=== PATIENT | female | born 1980 | race Caucasian/White ===

== ENCOUNTER 2019-11-15 14:46 | Outpatient (CLI) | payer BC, SELFPAY ==
--- NOTE | 2019-11-15 | US_ITS ---
WS: [id number] TRANSABDOMINAL PELVIC AND TRANSVAGINAL PELVIC ULTRASOUND HISTORY: MENORRHAGIA. DYSMENORRHEA. COMPARISON: None available. Uterus: 9.1 cm x 5.8 cm x 4.4 cm. Normal size anteverted uterus. No fibroid or mass. Endometrium: 0.6 cm. Normal endometrium. Small nabothian cysts. Right ovary: 3.6 cm x 2.1 cm x 2.0 cm. Normal size and echogenicity. Normal vascularity. Left ovary: Not visualized. No adnexal mass. Trace free fluid in the cul-de-sac. US/US pelvic with transvaginal IMPRESSION: 1. Normal endometrium. 2. Nonvisualized LEFT ovary.
== END 2019-11-15 14:47 | disposition home or self-care (01) ==
LOC: RADWPI 14:48
PROVIDERS: Family Provider Family Medicine; PCP Family Medicine; Visit Provider Family Medicine
DX: N92.0 Excessive and frequent menstruation with regular cycle (principal); N94.6 Dysmenorrhea, unspecified
CPT/HCPCS: 76830; 76856

== ENCOUNTER 2020-01-20 10:26 | Emergency (ER) | payer BC, SELFPAY ==
[2020-01-20 10:35] VITALS: BP 202/120; PULSE 88; RESP 18; TEMP 36.9; O2SAT 96; BMI 50.1
--- NOTE | 2020-01-20 10:45 | ECG_ITS ---
Measurements Intervals [place] Rate: 72 P: 42 AR: 159 QRS: 44 QRSD: 91 T: 27 QT: 372 QTc: 408 SINUS RHYTHM No previous ECG available for comparison Electronically Signed On 01-21-2020 14:57:17 CDT by Danielle Chappell M.D. [email or web address]
--- NOTE | 2020-01-20 10:45 | XR_ITS ---
WS: [id number] PORTABLE CHEST HISTORY: cp COMPARISON: None available. Lungs are clear and well expanded. No pleural effusion or pneumothorax. Cardiac size: Normal. Mediastinum/Aorta: Normal mediastinum. No osseous abnormality seen. XR/XR chest 1V portable [id number] IMPRESSION: Unremarkable portable chest.
--- NOTE | 2020-01-20 10:47 | ED_ITS ---
HPI - Chest Pain General: Chief Complaint: Chest Pain Stated Complaint: THINKS SHE IS HAVING A STROKE Time Seen by Provider: 01/20/20 10:45 Source: patient Mode of arrival: ambulatory Limitations: no limitations History of Present Illness: HPI narrative: Patient comes in today with complaints of left-sided chest pain. Patient reports that the pains been going on for about 1 to 2 weeks. Patient reports that the pain goes down to her fingers and her left arm. Patient appears well. Patient appears in no acute distress. Patient does talk a lot about her job and the stress she has on her job. 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 Patient denies any previous cardiac history. Patient does take propranolol for hypertension. MD complaint: chest pain Review of Systems General: Reports: 10 or more systems reviewed and unremarkable except in HPI and below Card: Reports: chest pain [facility] PFSH: Medical History (Updated 01/20/20 @ 12:44 by UZMA Clark) Kidney stones Surgical History (Updated 11/24/19 @ 10:42 by Kim Fernandez LPN) Tubal ligation status (~2005) Family History (Updated 11/24/19 @ 10:44 by Kim Fernandez LPN) Mother Cancer Diabetes Grandmother Cancer Family/Other Diabetes Aunt Denies family history of CAD (coronary artery disease) Clotting disorder Dementia Hyperlipidemia Psychiatric illness Chronic kidney disease (CKD) Anesthesia complication Bleeding disorder Family history of premature coronary artery disease Lung disease Hypertension Social History (Updated 11/24/19 @ 11:18 by Kim Fernandez LPN) Smoking and tobacco status: current every day smoker cigarettes Packs smoked per day: 1 Physical Exam Const: COMMON NORMALS: no acute distress and patient oriented x3 GENERAL APPEARANCE: cooperative HENMT: COMMON NORMALS: normocephalic and Normal external nose present HEAD & SCALP: normal to inspection and normocephalic NOSE: Normal external nose present MOUTH: Normal oral and palatal mucosa present THROAT: posterior oropharynx normal Eye: GENERAL EYE: appearance normal, both eyes and all related structures Neck/C-Spine: COMMON NORMALS: full ROM Lymph: LYMPHATIC: no lymphadenopathy noted Chest: COMMONS NORMALS: normal inspection of the chest Resp: COMMON NORMALS: normal respiratory effort EFFORT & INSPECTION: Yes able to speak in complete sentences Cardio: COMMON NORMALS: regular rate and regular rhythm RATE: regular rate RHYTHM: regular rhythm GI: COMMON NORMALS: non-tender : COMMON NORMALS: Yes no CVA tenderness BLADDER/KIDNEY EXAM: Yes no CVA tenderness Back/Pelvis: COMMON NORMALS: no CVA tenderness and thoracic and lumbar spine n ormal to inspection Extremity: COMMON NORMALS: normal to inspection Neuro: COMMON NORMALS: patient oriented x3 and moves all extremities Psych: COMMON NORMALS: mental status grossly normal and cooperative Skin: COMMON NORMALS: no rashes or lesions noted GENERAL SKIN EXAM: no rashes or lesions noted Course Vital Signs: Vital signs: Vital Signs Temperature 98.4 F 01/20/20 10:35 Pulse Rate 84 01/20/20 12:27 Respiratory Rate 18 01/20/20 12:27 Blood Pressure 128/83 01/20/20 12:27 Pulse Oximetry 97 01/20/20 12:27 MDM - Chest Pain MDM Narrative: Medical decision making narrative: Patient comes in today for complaints of chest pain and left arm pain. Patient appears well. Patient does have elevated blood pressure. Heart rates regular. EKG is normal sinus rhythm. Vital signs are normal except for blood pressure of 202/120. Differential diagnosis includes ACS, anxiety, malignant hypertension, gallbladder disease. Laboratory values were normal. No elevation was noted in troponin. D-dimer was negative. Urine was positive for nitrates. Reviewed exam with patient with recommendations for treatment follow-up or need to return to the ER. Patient reported understanding. Lab Data: Labs: Lab Results 01/20/20 01/20/20 01/20/20 Range/Units 10:54 10:54 10:54 WBC 8.2 (4.0-10.0) 10^3/ uL RBC 4.86 (4.1-5.3) 10^6/u L Hgb 12.3 (11.5-15.3) g/dL Hct 39.7 (37.0-47.0) % MCV 81.7 (81-99) fL MCH 25.3 L (28.0-34.0) pg MCHC 31.0 (30.0-36.0) g/dL RDW 15.5 H (12.1-15.1) % Plt Count 381 (130-400) 10^3/c mm MPV 10.4 (7.4-10.4) fL Neut % (Auto) 61.9 % Lymph % (Auto) 26.9 % [place] % (Auto) 7.2 % Eos % (Auto) 2.9 % Baso % (Auto) 0.7 % Neut # (Auto) 5.1 (1.8-7.7) 10^3/u L Lymph # (Auto) 2.2 (0.8-4.8) 10^3/u L [place] # (Auto) 0.6 (0.2-0.9) 10^3/u L Eos # (Auto) 0.2 (0.0-0.8) 10^3/u L Baso # (Auto) 0.1 (0.0-0.1) 10^3/u L Nucleated RBC % (a uto) 0 % Nucleated RBCs # 0.0 /100WBC PT 12.90 (10.5-13.3) SECO NDS INR 0.95 (0.8-1.2) APTT 31.9 (23.9-36.7) SECO NDS D-Dimer 0.47 (0-0.59) ug/mIFE U Sodium 137 (136-145) mmol/L Potassium 4.7 (3.5-5.1) mmol/L Chloride 104 (98-107) mmol/L Carbon Dioxide 23 (22-29) mmol/L Anion Gap 14.7 (5-19) BUN 10 (6-20) mg/dL Creatinine 0.7 (0.5-0.9) mg/dL GFR Calculation 94.2 (90-130) mL/min Glucose 90 (65-115) mg/dL POC Glucose (70-110) mg/dL Calculated Osmolal ity 280 L (285-295) mOsm/k g Calcium 10.0 (8.5-10.5) mg/dL Total Bilirubin 0.2 (0.15-1.2) mg/dL AST 20 (0-32) U/L ALT 22 (0-33) U/L Alkaline Phosphata se 62 (35-105) IU/L Troponin T Baselin e (0-10) ng/L Total Protein 6.8 (6.6-8.7) g/dL Albumin 4.6 (3.5-5.2) g/dL Globulin 2.2 (1.3-4.6) g/dL Lipase 33 (13-60) U/L HCG, Qual (Negative) Urine Color (Yellow) Urine Appearance (CLEAR) Urine pH (5-7) Ur Specific Gravit y (1.005-1.030) Urine Protein (Negative) Urine Glucose (UA) (Normal) Urine Ketones (Negative) Urine Blood (Negative) Urine Nitrate (Negative) Urine Bilirubin (NEGATIVE) Urine Urobilinogen (Negative) mg/dL Ur Leukocyte Susi ase (Negative) Urine RBC (0-2) /hpf Urine WBC (0-5) /hpf Ur Squamous Epith Cells (0-5) Urine Bacteria (NONE) Urine Opiates Scre en (Negative) ng/mL Ur Barbiturates Sc reen (Negative) ng/mL Ur Phencyclidine S crn (Negative) ng/mL Ur Amphetamines Sc reen (Negative) ng/mL U Benzodiazepines Scrn (Negative) ng/mL Urine Cocaine Scre en (Negative) ng/mL U Marijuana (THC) Screen (Negative) ng/mL Ethyl Alcohol < 10 (0-10) mg/dL 01/20/20 01/20/20 01/20/20 Range/Units 10:54 11:03 11:15 WBC (4.0-10.0) 10^3/ uL RBC (4.1-5.3) 10^6/u L Hgb (11.5-15.3) g/dL Hct (37.0-47.0) % MCV (81-99) fL MCH (28.0-34.0) pg MCHC (30.0-36.0) g/dL RDW (12.1-15.1) % Plt Count (130-400) 10^3/c mm MPV (7.4-10.4) fL Neut % (Auto) % Lymph % (Auto) % [place] % (Auto) % Eos % (Auto) % Baso % (Auto) % Neut # (Auto) (1.8-7.7) 10^3/u L Lymph # (Auto) (0.8-4.8) 10^3/u L [place] # (Auto) (0.2-0.9) 10^3/u L Eos # (Auto) (0.0-0.8) 10^3/u L Baso # (Auto) (0.0-0.1) 10^3/u L Nucleated RBC % (a uto) % Nucleated RBCs # /100WBC PT (10.5-13.3) SECO NDS INR (0.8-1.2) APTT (23.9-36.7) SECO NDS D-Dimer (0-0.59) ug/mIFE U Sodium (136-145) mmol/L Potassium (3.5-5.1) mmol/L Chloride (98-107) mmol/L Carbon Dioxide (22-29) mmol/L Anion Gap (5-19) BUN (6-20) mg/dL Creatinine (0.5-0.9) mg/dL GFR Calculation (90-130) mL/min Glucose (65-115) mg/dL POC Glucose 92 (70-110) mg/dL Calculated Osmolal ity (285-295) mOsm/k g Calcium (8.5-10.5) mg/dL Total Bilirubin (0.15-1.2) mg/dL AST (0-32) U/L ALT (0-33) U/L Alkaline Phosphata se (35-105) IU/L Troponin T Baselin e 6 (0-10) ng/L Total Protein (6.6-8.7) g/dL Albumin (3.5-5.2) g/dL Globulin (1.3-4.6) g/dL Lipase (13-60) U/L HCG, Qual Negative (Negative) Urine Color (Yellow) Urine Appearance (CLEAR) Urine pH (5-7) Ur Specific Gravit y (1.005-1.030) Urine Protein (Negative) Urine Glucose (UA) (Normal) Urine Ketones (Negative) Urine Blood (Negative) Urine Nitrate (Negative) Urine Bilirubin (NEGATIVE) Urine Urobilinogen (Negative) mg/dL Ur Leukocyte Susi ase (Negative) Urine RBC (0-2) /hpf Urine WBC (0-5) /hpf Ur Squamous Epith Cells (0-5) Urine Bacteria (NONE) Urine Opiates Scre en (Negative) ng/mL Ur Barbiturates Sc reen (Negative) ng/mL Ur Phencyclidine S crn (Negative) ng/mL Ur Amphetamines Sc reen (Negative) ng/mL U Benzodiazepines Scrn (Negative) ng/mL Urine Cocaine Scre en (Negative) ng/mL U Marijuana (THC) Screen (Negative) ng/mL Ethyl Alcohol (0-10) mg/dL 01/20/20 01/20/20 Range/Units 11:15 11:15 WBC (4.0-10.0) 10^3/ uL RBC (4.1-5.3) 10^6/u L Hgb (11.5-15.3) g/dL Hct (37.0-47.0) % MCV (81-99) fL MCH (28.0-34.0) pg MCHC (30.0-36.0) g/dL RDW (12.1-15.1) % Plt Count (130-400) 10^3/c mm MPV (7.4-10.4) fL Neut % (Auto) % Lymph % (Auto) % [place] % (Auto) % Eos % (Auto) % Baso % (Auto) % Neut # (Auto) (1.8-7.7) 10^3/u L Lymph # (Auto) (0.8-4.8) 10^3/u L [place] # (Auto) (0.2-0.9) 10^3/u L Eos # (Auto) (0.0-0.8) 10^3/u L Baso # (Auto) (0.0-0.1) 10^3/u L Nucleated RBC % (a uto) % Nucleated RBCs # /100WBC PT (10.5-13.3) SECO NDS INR (0.8-1.2) APTT (23.9-36.7) SECO NDS D-Dimer (0-0.59) ug/mIFE U Sodium (136-145) mmol/L Potassium (3.5-5.1) mmol/L Chloride (98-107) mmol/L Carbon Dioxide (22-29) mmol/L Anion Gap (5-19) BUN (6-20) mg/dL Creatinine (0.5-0.9) mg/dL GFR Calculation (90-130) mL/min Glucose (65-115) mg/dL POC Glucose (70-110) mg/dL Calculated Osmolal ity (285-295) mOsm/k g Calcium (8.5-10.5) mg/dL Total Bilirubin (0.15-1.2) mg/dL AST (0-32) U/L ALT (0-33) U/L Alkaline Phosphata se (35-105) IU/L Troponin T Baselin e (0-10) ng/L Total Protein (6.6-8.7) g/dL Albumin (3.5-5.2) g/dL Globulin (1.3-4.6) g/dL Lipase (13-60) U/L HCG, Qual (Negative) Urine Color Yellow (Yellow) Urine Appearance Sl hazy (CLEAR) Urine pH 5.0 (5-7) Ur Specific Gravit y 1.015 (1.005-1.030) Urine Protein Neg (Negative) Urine Glucose (UA) Norm (Normal) Urine Ketones Negative (Negative) Urine Blood 2+ H (Negative) Urine Nitrate Positive H (Negative) Urine Bilirubin Neg (NEGATIVE) Urine Urobilinogen Norm (Negative) mg/dL Ur Leukocyte Susi ase Negative (Negative) Urine RBC 5-10 H (0-2) /hpf Urine WBC 15-25 H (0-5) /hpf Ur Squamous Epith Cells 0-4 H (0-5) Urine Bacteria 3+ H (NONE) Urine Opiates Scre en Negative (Negative) ng/mL Ur Barbiturates Sc reen Negative (Negative) ng/mL Ur Phencyclidine S crn Negative (Negative) ng/mL Ur Amphetamines Sc reen Negative (Negative) ng/mL U Benzodiazepines Scrn Negative (Negative) ng/mL Urine Cocaine Scre en Negative (Negative) ng/mL U Marijuana (THC) Screen Negative (Negative) ng/mL Ethyl Alcohol (0-10) mg/dL Discharge Plan Discharge Patient Disposition: Home, Self-Care Clinical Impression: Atypical chest pain Hypertension Qualifiers: Hypertension type: unspecified Qualified Code(s): I10 - Essential (primary) hypertension UTI (urinary tract infection) Qualifiers: Urinary tract infection type: acute cystitis Hematuria presence: without hematuria Qualified Code(s): N30.00 - Acute cystitis without hematuria Condition: Stable Prescriptions: New lisinopril 10 mg tablet 10 mg PO DAILY Qty: 14 RF: 0 Macrobid 100 mg capsule 100 mg PO BID 7 Days Qty: 14 RF: 0 No Action propranolol 80 mg tablet 40 mg PO BID RF: 0 aspirin [Fish Chewable Aspirin] 81 mg tablet,chewable 81 mg PO DAILY RF: 0 Chantix Starting Month Box 0.5 mg (11)- 1 mg (42) tablets,dose pack See Rx Instructions PO PER PKG DIR Qty: 53 RF: 0 Vitamin B-12 See Rx Instructions .ROUTE .COMPLEX RF: 0 Discharge Orders: Discharge Order (Routine); Ordered 01/20/20 Ordered By: Maurice Apple Referrals: Camila Menezes MD [Primary Care Provider] - Discharge Diet: Usual diet Discharge Activity: Increase activity as tolerated Activity Restrictions/Additional Instructions: Home and rest. Activity as tolerated. Drink plenty of water with medications. Follow-up with primary care in 1 week. Return to the ER for worsening symptoms or new concerns. Coding Level of Care Code ED Differential Tester for Mulu Fwlane Exam Comprehensive
[2020-01-20 10:57] VITALS: RESP 17
[2020-01-20 11:07] LABS: Glucose Point of Care 92 mg/dL (70-110)
[2020-01-20 11:07] LABS: Basophils # 0.1 10^3/uL (0.0-0.1); Basophils % 0.7 %; Eosinophils # 0.2 10^3/uL (0.0-0.8); Eosinophils % 2.9 %; Hematocrit 39.7 % (37.0-47.0); Hemoglobin 12.3 g/dL (11.5-15.3); Lymphocytes # 2.2 10^3/uL (0.8-4.8); Lymphocytes % 26.9 %; Mean Corpuscular Hemoglobin 25.3 pg (28.0-34.0); Mean Corpuscular Volume 81.7 fL (81-99); Mean Platelet Volume 10.4 fL (7.4-10.4); Monocytes # 0.6 10^3/uL (0.2-0.9); Monocytes % 7.2 %; Neutrophils # 5.1 10^3/uL (1.8-7.7); Neutrophils % 61.9 %; Nucleated Red Blood Cells % 0 %; Platelet Count 381 10^3/cmm (130-400); Red Blood Count 4.86 10^6/uL (4.1-5.3); Red Cell Distribution Width 15.5 % (12.1-15.1); White Blood Count 8.2 10^3/uL (4.0-10.0)
[2020-01-20 11:09] VITALS: BP 153/86
[2020-01-20] MEDS: cloNIDine 0.1 mg Tablet PO (11:09)
[2020-01-20 11:13] LABS: INR 0.95 (0.8-1.2); Partial Thromboplastin Time 31.9 SECONDS (23.9-36.7)
[2020-01-20 11:15] LABS: D Dimer 0.47 ug/mIFEU (0-0.59)
[2020-01-20 11:24] LABS: Alanine Aminotransferase 22 U/L (0-33); Albumin Level 4.6 g/dL (3.5-5.2); Alkaline Phosphatase 62 IU/L (35-105); Anion Gap 14.7 (5-19); Aspartate Amino Transferase 20 U/L (0-32); Blood Urea Nitrogen 10 mg/dL (6-20); Carbon Dioxide 23 mmol/L (22-29); Chloride 104 mmol/L (98-107); Globulin 2.2 g/dL (1.3-4.6); Glomerular Filtration Rate 94.2 mL/min (90-130); Glucose 90 mg/dL (65-115); Lipase 33 U/L (13-60); Osmolality Calculated 280 mOsm/kg (285-295); Potassium 4.7 mmol/L (3.5-5.1); Sodium 137 mmol/L (136-145); Total Bilirubin 0.2 mg/dL (0.15-1.2); Total Protein 6.8 g/dL (6.6-8.7)
[2020-01-20 11:25] LABS: Alcohol Level < 10 mg/dL (0-10)
[2020-01-20 11:26] LABS: Troponin(5th) Baseline 6 ng/L (0-10)
[2020-01-20 11:45] LABS: Urine Appearance SL Hazy (CLEAR); Urine Color Yellow (Yellow)
[2020-01-20 11:46] LABS: Add Urine Microscopic? YES; Bilirubin Urine Neg (NEGATIVE); Blood Urine 2+ (Negative); Glucose Urine UA Norm (Normal); Ketones Urine Negative (Negative); Leukocyte Esterase Urine Negative (Negative); Nitrate Urine Positive (Negative); Protein Urine Neg (Negative); Specific Gravity, Urine 1.015 (1.005-1.030); Urobilinogen Urine Norm (Negative)
[2020-01-20 11:47] LABS: HCG Qualitative Urine. Negative (Negative)
[2020-01-20 11:55] LABS: Amphetamines Screen Urine Negative (Negative); Barbiturates Screen Urine Negative (Negative); Benzodiazepines Screen Urine Negative (Negative); Cocaine Screen Urine Negative (Negative); Opiate Screen Urine Negative (Negative); PCP Screen Urine Negative (Negative); THC Screen Urine Negative (Negative)
[2020-01-20 12:06] LABS: Add Urine Culture? Yes; Bacteria Urine 3+; Squamous Epithelial Cell Urine 0-4 (0-5); WBC Urine 15-25 /hpf (0-5)
[2020-01-20 12:27] VITALS: BP 128/83; PULSE 84; RESP 18; O2SAT 97
[2020-01-20 13:10] VITALS: BP 128/83; PULSE 79; RESP 16; O2SAT 96
[2020-01-20 13:19] LABS: Troponin 5 2HR Delta 0 ABS# (0-10)
== END 2020-01-20 12:59 | disposition home or self-care (01) ==
PROVIDERS: Emergency Provider Nurse Practitioner Family; PCP Family Medicine
DX: R07.89 Other chest pain (principal); I10 Essential (primary) hypertension; N30.00 Acute cystitis without hematuria; Z79.82 Long term (current) use of aspirin; F17.210 Nicotine dependence, cigarettes, uncomplicated
CPT/HCPCS: 12345; 36415; 36416; 71045; 80053; 80306; 80307; 81001; 81025; 82962; 83690; 84484; 85025; 85378; 85610; 85730; 87077; 87086; 87186; 93005; 99283; 99284

== ENCOUNTER 2020-03-20 02:28 | Emergency (ER) | payer BC, SELFPAY ==
[2020-03-20 02:33] VITALS: BP 134/68; PULSE 142; RESP 18; TEMP 35.7; O2SAT 97; BMI 45.6
--- NOTE | 2020-03-20 02:59 | ED_ITS ---
Documented by User: SAL Bach 03/20/20 17:13 HPI - General Adult General: Chief complaint: Chest Pain Stated complaint: PAIN IN CHEST, NECK, HEAD Time Seen by Provider: 03/20/20 02:59 Source: patient Mode of arrival: ambulatory Limitations: no limitations History of Present Illness: HPI narrative: Patient is a 39-year-old female who presents to ED today with multiple medical complaints. Patient tells me around 8:30 PM she took her normal medications of lisinopril, Wellbutrin, Chantix but also took a naproxen due to cramping associated with her menstrual cycle and to Macrobid due to her having symptoms of urinary hesitancy and urgency. She states she has a history of UTIs and felt like her symptoms were similar. The Macrobid was left over. Patient tells me around 1:30am she woke up and felt freezing cold . She states she also felt dizzy, nauseous, felt like she could not breathe, and had some tightness in her chest. She also complained of a headache. Patient states she does have a history of anxiety. She was seen here in January and diagnosed with a panic attack Onset (ago): hour(s) Associated symptoms: Reports chest pain, dyspnea, headache(s) and nausea; Deny malaise, rash, palpitations, syncope or vomiting Review of Systems Const: Reports: fever(s) and chills; Denies: body aches, change in appetite, change in weight, fatigue, malaise or night sweats Eyes: Denies: change in vision, blurry vision, photophobia, floaters or seeing flashes ENMT: Denies: odynophagia Card: Reports: chest pain; Denies: palpitations, irregular heart rhythm, edema, swelling of feet/ankles, lightheadedness, syncope, pre-syncope, dyspnea on exertion, orthopnea or leg pain with exertion Resp: Reports: dyspnea; Denies: productive cough, non-productive cough, pain on inspiration, hemoptysis or chest congestion GI: Reports: nausea; Denies: abdominal pain, vomiting, heartburn or diarrhea : Reports: urinary urgency and urinary hesitancy; Denies: flank pain, difficulty voiding, dysuria, urinary frequency, urinary incontinence or vaginal discharge Musc: Denies: neck pain, back pain (chronic ) or joint pain Skin/Breast: Denies: rash Neuro: Reports: headache(s); Denies: numbness in extremities, weakness in extremities or sensory changes PFSH ED PFSH: Medical History Kidney stones Surgical History Tubal ligation status (~2005) Family History Mother Cancer Diabetes Grandmother Cancer Family/Other Diabetes Aunt Denies family history of CAD (coronary artery disease) Clotting disorder Dementia Hyperlipidemia Psychiatric illness Chronic kidney disease (CKD) Anesthesia complication Bleeding disorder Family history of premature coronary artery disease Lung disease Hypertension Social History Smoking and tobacco status: current every day smoker cigarettes Packs smoked per day: 1 Physical Exam Const: COMMON NORMALS: no acute distress, patient oriented x3, no limitations and alert NUTRITIONAL APPEARANCE: obese morbidly obese ORIENTATION/CONSCIOUSNESS: Yes oriented to person, Yes oriented to place and Yes oriented to time HENMT: COMMON NORMALS: normocephalic and atraumatic HEAD & SCALP: normocephalic and atraumatic Chest: COMMONS NORMALS: normal inspection of the chest and normal palpation of entire chest wall Resp: COMMON NORMALS: normal respiratory effort and clear to auscultation bilaterally AUSCULTATION: clear to auscultation bilaterally Cardio: COMMON NORMALS: regular rhythm RATE: tachycardic RHYTHM: regular rhythm GI: COMMON NORMALS: Normal to inspection, nondistended, normoactive bowel sounds present, Soft to palpation, non-tender, No hepatosplenomegaly present and no masses PALPATION: Yes Soft to palpation and Yes No hepatosplenomegaly present : COMMON NORMALS: Yes no CVA tenderness BLADDER/KIDNEY EXAM: Yes no CVA tenderness Back/Pelvis: COMMON NORMALS: no CVA tenderness Extremity: COMMON NORMALS: no clubbing, cyanosis or edema and no pedal edema Neuro: JOSE COMA SCALE: document GCS findings Jose coma scale eye opening: Spontaneous Jose coma scale verbal response: Orientated [place] coma scale motor response: Obey commands Jose coma scale total score: 15 COMMON NORMALS: patient oriented x3 and gait normal SENSORIUM/ORIENTATION: Yes alert, Yes oriented to person, Yes oriented to place and Yes oriented to time Skin: COMMON NORMALS: no rashes or lesions noted GENERAL SKIN EXAM: no rashes or lesions noted Course Vital Signs: Vital signs: Vital Signs Temperature 96.2 F L 03/20/20 02:33 Pulse Rate 98 03/20/20 06:50 Respiratory Rate 14 03/20/20 06:50 Blood Pressure 134/87 03/20/20 06:50 Pulse Oximetry 98 03/20/20 06:50 [facility] - General Adult Lab Data: Labs: Lab Results 03/20/20 03/20/20 03/20/20 Range/Units 03:11 03:11 03:11 WBC 7.6 (4.0-10.0) 10^3/ uL RBC 4.67 (4.1-5.3) 10^6/u L Hgb 12.0 (11.5-15.3) g/dL Hct 38.2 (37.0-47.0) % MCV 81.8 (81-99) fL MCH 25.7 L (28.0-34.0) pg MCHC 31.4 (30.0-36.0) g/dL RDW 16.2 H (12.1-15.1) % Plt Count 345 (130-400) 10^3/c mm MPV 10.0 (7.4-10.4) fL Neut % (Auto) 92.9 % Lymph % (Auto) 4.7 % [place] % (Auto) 0.7 % Eos % (Auto) 0.8 % Baso % (Auto) 0.4 % Neut # (Auto) 7.07 (1.8-7.7) 10^3/u L Lymph # (Auto) 0.4 L (0.8-4.8) 10^3/u L [place] # (Auto) 0.1 L (0.2-0.9) 10^3/u L Eos # (Auto) 0.1 (0.0-0.8) 10^3/u L Baso # (Auto) 0.0 (0.0-0.1) 10^3/u L Nucleated RBC % (a uto) 0 % Nucleated RBCs # 0.0 /100WBC D-Dimer (0-0.59) ug/mIFE U Sodium 137 (136-145) mmol/L Potassium 4.0 (3.5-5.1) mmol/L Chloride 104 (98-107) mmol/L Carbon Dioxide 23 (22-29) mmol/L Anion Gap 14.0 (5-19) BUN 12 (6-20) mg/dL Creatinine 1.0 H (0.5-0.9) mg/dL GFR Calculation 62.4 L (90-130) mL/min Glucose 109 (65-115) mg/dL Calculated Osmolal ity 281 L (285-295) mOsm/k g Calcium 9.7 (8.5-10.5) mg/dL Total Bilirubin 0.6 (0.15-1.2) mg/dL AST 86 H (0-32) U/L ALT 52 H (0-33) U/L Alkaline Phosphata se 97 (35-105) IU/L Troponin T Baselin e 6 (0-10) ng/L Troponin T 120 Min [place] (0-10) ng/L Delta Troponin T (0-10) ABS# Total Protein 6.3 L (6.6-8.7) g/dL Albumin 4.0 (3.5-5.2) g/dL Globulin 2.3 (1.3-4.6) g/dL HCG, Qual (Negative) Urine Opiates Scre en (Negative) ng/mL Ur Barbiturates Sc reen (Negative) ng/mL Ur Phencyclidine S crn (Negative) ng/mL Ur Amphetamines Sc reen (Negative) ng/mL U Benzodiazepines Scrn (Negative) ng/mL Urine Cocaine Scre en (Negative) ng/mL U Marijuana (THC) Screen (Negative) ng/mL 03/20/20 03/20/20 03/20/20 Range/Units 03:11 03:11 03:15 WBC (4.0-10.0) 10^3/ uL RBC (4.1-5.3) 10^6/u L Hgb (11.5-15.3) g/dL Hct (37.0-47.0) % MCV (81-99) fL MCH (28.0-34.0) pg MCHC (30.0-36.0) g/dL RDW (12.1-15.1) % Plt Count (130-400) 10^3/c mm MPV (7.4-10.4) fL Neut % (Auto) % Lymph % (Auto) % [place] % (Auto) % Eos % (Auto) % Baso % (Auto) % Neut # (Auto) (1.8-7.7) 10^3/u L Lymph # (Auto) (0.8-4.8) 10^3/u L [place] # (Auto) (0.2-0.9) 10^3/u L Eos # (Auto) (0.0-0.8) 10^3/u L Baso # (Auto) (0.0-0.1) 10^3/u L Nucleated RBC % (a uto) % Nucleated RBCs # /100WBC D-Dimer 0.91 H (0-0.59) ug/mIFE U Sodium (136-145) mmol/L Potassium (3.5-5.1) mmol/L Chloride (98-107) mmol/L Carbon Dioxide (22-29) mmol/L Anion Gap (5-19) BUN (6-20) mg/dL Creatinine (0.5-0.9) mg/dL GFR Calculation (90-130) mL/min Glucose (65-115) mg/dL Calculated Osmolal ity (285-295) mOsm/k g Calcium (8.5-10.5) mg/dL Total Bilirubin (0.15-1.2) mg/dL AST (0-32) U/L ALT (0-33) U/L Alkaline Phosphata se (35-105) IU/L Troponin T Baselin e (0-10) ng/L Troponin T 120 Min [place] (0-10) ng/L Delta Troponin T (0-10) ABS# Total Protein (6.6-8.7) g/dL Albumin (3.5-5.2) g/dL Globulin (1.3-4.6) g/dL HCG, Qual Negative (Negative) Urine Opiates Scre en Negative (Negative) ng/mL Ur Barbiturates Sc reen Negative (Negative) ng/mL Ur Phencyclidine S crn Negative (Negative) ng/mL Ur Amphetamines Sc reen Negative (Negative) ng/mL U Benzodiazepines Scrn Negative (Negative) ng/mL Urine Cocaine Scre en Negative (Negative) ng/mL U Marijuana (THC) Screen Negative (Negative) ng/mL 03/20/20 Range/Units 05:10 WBC (4.0-10.0) 10^3/ uL RBC (4.1-5.3) 10^6/u L Hgb (11.5-15.3) g/dL Hct (37.0-47.0) % MCV (81-99) fL MCH (28.0-34.0) pg MCHC (30.0-36.0) g/dL RDW (12.1-15.1) % Plt Count (130-400) 10^3/c mm MPV (7.4-10.4) fL Neut % (Auto) % Lymph % (Auto) % [place] % (Auto) % Eos % (Auto) % Baso % (Auto) % Neut # (Auto) (1.8-7.7) 10^3/u L Lymph # (Auto) (0.8-4.8) 10^3/u L [place] # (Auto) (0.2-0.9) 10^3/u L Eos # (Auto) (0.0-0.8) 10^3/u L Baso # (Auto) (0.0-0.1) 10^3/u L Nucleated RBC % (a uto) % Nucleated RBCs # /100WBC D-Dimer (0-0.59) ug/mIFE U Sodium (136-145) mmol/L Potassium (3.5-5.1) mmol/L Chloride (98-107) mmol/L Carbon Dioxide (22-29) mmol/L Anion Gap (5-19) BUN (6-20) mg/dL Creatinine (0.5-0.9) mg/dL GFR Calculation (90-130) mL/min Glucose (65-115) mg/dL Calculated Osmolal ity (285-295) mOsm/k g Calcium (8.5-10.5) mg/dL Total Bilirubin (0.15-1.2) mg/dL AST (0-32) U/L ALT (0-33) U/L Alkaline Phosphata se (35-105) IU/L Troponin T Baselin e (0-10) ng/L Troponin T 120 Min [place] 6.00 (0-10) ng/L Delta Troponin T 0 (0-10) ABS# Total Protein (6.6-8.7) g/dL Albumin (3.5-5.2) g/dL Globulin (1.3-4.6) g/dL HCG, Qual (Negative) Urine Opiates Scre en (Negative) ng/mL Ur Barbiturates Sc reen (Negative) ng/mL Ur Phencyclidine S crn (Negative) ng/mL Ur Amphetamines Sc reen (Negative) ng/mL U Benzodiazepines Scrn (Negative) ng/mL Urine Cocaine Scre en (Negative) ng/mL U Marijuana (THC) Screen (Negative) ng/mL EKG Data^: EKG 1: Computer generated interpretation: Chest X-Ray 03/20/20 03:00 IMPRESSION: No acute findings. Chest CTA 03/20/20 04:44 IMPRESSION: No acute findings. Specifically negative for pulmonary embolism. Negative for aortic aneurysm or dissection Radiation Dose CTDIVOL = (mGy): DLP = 1260.55 (mGy-cm) EKG 2: Computer generated interpretation: Chest X-Ray 03/20/20 03:00 IMPRESSION: No acute findings. Chest CTA 03/20/20 04:44 IMPRESSION: No acute findings. Specifically negative for pulmonary embolism. Negative for aortic aneurysm or dissection Radiation Dose CTDIVOL = (mGy): DLP = 1260.55 (mGy-cm) Discharge Plan Discharge Patient Disposition: Home Clinical Impression: Chest pain Qualifiers: Chest pain type: unspecified Qualified Code(s): R07.9 - Chest pain, unspecified Condition: Stable Prescriptions: New hydroxyzine pamoate 25 mg capsule 25 mg PO Q6H PRN (Reason: anxiety) Qty: 30 RF: 0 No Action propranolol 80 mg tablet 40 mg PO BID RF: 0 aspirin [Fish Chewable Aspirin] 81 mg tablet,chewable 81 mg PO DAILY RF: 0 Chantix Starting Month Box 0.5 mg (11)- 1 mg (42) tablets,dose pack See Rx Instructions PO PER PKG DIR Qty: 53 RF: 0 Vitamin B-12 See Rx Instructions .ROUTE .COMPLEX RF: 0 lisinopril 10 mg tablet 10 mg PO DAILY Qty: 14 RF: 0 Discharge Orders: Discharge Order (Routine); Ordered 03/20/20 Ordered By: Sharon Campbell Referrals: Camila Menezes MD [Primary Care Provider] - 1-3 days [facility] [place], [Staff Physician] - 1-3 days (Call [facility] and [place] for appointment to be seen as soon as possible.) Discharge Diet: Advance as tolerated Discharge Activity: Increase activity as tolerated Patient Instructions: Chest Pain (ED), Anxiety (ED) Activity Restrictions/Additional Instructions: Please return to the ER immediately for any of the signs or symptoms listed on your discharge instruction sheets, worsening/changing of your symptoms, you are not getting better as quickly as expected, or for ANY other cause or concerns. You have been offered further evaluation and care here to include further observation and investigation of your heart. You have even been offered admission but have declined. Of course any heart problem can be life-threatening so if your symptoms change or worsen please return here immediately for recheck and further evaluation and care. Discharge Date/Time: 03/20/20 06:57 Sign Out Sign Out Data: Patient Sign Out occurred on 03/20/20 at 03:17. Patient's care was discussed, and care was transferred from to Sharon Campbell. Coding Level of Care Code ED County Assessor for Chg Fwd Exam Comprehensive Documented by User: Sharon Campbell 03/20/20 06:03 HPI - General Adult General: Chief complaint: Chest Pain Stated complaint: PAIN IN CHEST, NECK, HEAD Time Seen by Provider: 03/20/20 02:59 PFSH ED PFSH: Medical History Kidney stones Surgical History Tubal ligation status (~2005) Family History Mother Cancer Diabetes Grandmother Cancer Family/Other Diabetes Aunt Denies family history of CAD (coronary artery disease) Clotting disorder Dementia Hyperlipidemia Psychiatric illness Chronic kidney disease (CKD) Anesthesia complication Bleeding disorder Family history of premature coronary artery disease Lung disease Hypertension Social History Smoking and tobacco status: current every day smoker cigarettes Packs smoked per day: 1 Course Vital Signs: Vital signs: Vital Signs Temperature 96.2 F L 03/20/20 02:33 Pulse Rate 98 03/20/20 06:50 Respiratory Rate 14 03/20/20 06:50 Blood Pressure 134/87 03/20/20 06:50 Pulse Oximetry 98 03/20/20 06:50 MDM - General Adult MDM Narrative: Medical decision making narrative: Awa is a very nice 39-year-old female who comes in complaining of multiple complaints. Specifically she is concerned about chest pain but she states this to her feels like a panic attack. Her EKGs have been normal here and her troponins have been normal x2. Her heart score is 1. Her d-dimer was positive but a CTA of her chest is negative. Patient is very emotional, tearful at times. I have offered her further evaluation and care including even to consult with the hospitalist about possible admission but she declines. She states that this is just a panic attack but she needs to help get better control of this. She has not seen her doctor about this nor has she been to [facility]. I have suggested both avenues and she agrees to do this. She agrees to return should her symptoms change or worsen or if anything new develops. She understands that she is leaving against my advice she is still tachycardic and I would like to further evaluate her symptoms but she does agree to return should her symptoms change or worsen. Lab Data: Attestation: I reviewed the patient's lab results. Labs: Lab Results 03/20/20 03/20/20 03/20/20 Range/Units 03:11 03:11 03:11 WBC 7.6 (4.0-10.0) 10^3/ uL RBC 4.67 (4.1-5.3) 10^6/u L Hgb 12.0 (11.5-15.3) g/dL Hct 38.2 (37.0-47.0) % MCV 81.8 (81-99) fL MCH 25.7 L (28.0-34.0) pg MCHC 31.4 (30.0-36.0) g/dL RDW 16.2 H (12.1-15.1) % Plt Count 345 (130-400) 10^3/c mm MPV 10.0 (7.4-10.4) fL Neut % (Auto) 92.9 % Lymph % (Auto) 4.7 % [place] % (Auto) 0.7 % Eos % (Auto) 0.8 % Baso % (Auto) 0.4 % Neut # (Auto) 7.07 (1.8-7.7) 10^3/u L Lymph # (Auto) 0.4 L (0.8-4.8) 10^3/u L [place] # (Auto) 0.1 L (0.2-0.9) 10^3/u L Eos # (Auto) 0.1 (0.0-0.8) 10^3/u L Baso # (Auto) 0.0 (0.0-0.1) 10^3/u L Nucleated RBC % (a uto) 0 % Nucleated RBCs # 0.0 /100WBC D-Dimer (0-0.59) ug/mIFE U Sodium 137 (136-145) mmol/L Potassium 4.0 (3.5-5.1) mmol/L Chloride 104 (98-107) mmol/L Carbon Dioxide 23 (22-29) mmol/L Anion Gap 14.0 (5-19) BUN 12 (6-20) mg/dL Creatinine 1.0 H (0.5-0.9) mg/dL GFR Calculation 62.4 L (90-130) mL/min Glucose 109 (65-115) mg/dL Calculated Osmolal ity 281 L (285-295) mOsm/k g Calcium 9.7 (8.5-10.5) mg/dL Total Bilirubin 0.6 (0.15-1.2) mg/dL AST 86 H (0-32) U/L ALT 52 H (0-33) U/L Alkaline Phosphata se 97 (35-105) IU/L Troponin T Baselin e 6 (0-10) ng/L Troponin T 120 Min [place] (0-10) ng/L Delta Troponin T (0-10) ABS# Total Protein 6.3 L (6.6-8.7) g/dL Albumin 4.0 (3.5-5.2) g/dL Globulin 2.3 (1.3-4.6) g/dL HCG, Qual (Negative) Urine Opiates Scre en (Negative) ng/mL Ur Barbiturates Sc reen (Negative) ng/mL Ur Phencyclidine S crn (Negative) ng/mL Ur Amphetamines Sc reen (Negative) ng/mL U Benzodiazepines Scrn (Negative) ng/mL Urine Cocaine Scre en (Negative) ng/mL U Marijuana (THC) Screen (Negative) ng/mL 03/20/20 03/20/20 03/20/20 Range/Units 03:11 03:11 03:15 WBC (4.0-10.0) 10^3/ uL RBC (4.1-5.3) 10^6/u L Hgb (11.5-15.3) g/dL Hct (37.0-47.0) % MCV (81-99) fL MCH (28.0-34.0) pg MCHC (30.0-36.0) g/dL RDW (12.1-15.1) % Plt Count (130-400) 10^3/c mm MPV (7.4-10.4) fL Neut % (Auto) % Lymph % (Auto) % [place] % (Auto) % Eos % (Auto) % Baso % (Auto) % Neut # (Auto) (1.8-7.7) 10^3/u L Lymph # (Auto) (0.8-4.8) 10^3/u L [place] # (Auto) (0.2-0.9) 10^3/u L Eos # (Auto) (0.0-0.8) 10^3/u L Baso # (Auto) (0.0-0.1) 10^3/u L Nucleated RBC % (a uto) % Nucleated RBCs # /100WBC D-Dimer 0.91 H (0-0.59) ug/mIFE U Sodium (136-145) mmol/L Potassium (3.5-5.1) mmol/L Chloride (98-107) mmol/L Carbon Dioxide (22-29) mmol/L Anion Gap (5-19) BUN (6-20) mg/dL Creatinine (0.5-0.9) mg/dL GFR Calculation (90-130) mL/min Glucose (65-115) mg/dL Calculated Osmolal ity (285-295) mOsm/k g Calcium (8.5-10.5) mg/dL Total Bilirubin (0.15-1.2) mg/dL AST (0-32) U/L ALT (0-33) U/L Alkaline Phosphata se (35-105) IU/L Troponin T Baselin e (0-10) ng/L Troponin T 120 Min [place] (0-10) ng/L Delta Troponin T (0-10) ABS# Total Protein (6.6-8.7) g/dL Albumin (3.5-5.2) g/dL Globulin (1.3-4.6) g/dL HCG, Qual Negative (Negative) Urine Opiates Scre en Negative (Negative) ng/mL Ur Barbiturates Sc reen Negative (Negative) ng/mL Ur Phencyclidine S crn Negative (Negative) ng/mL Ur Amphetamines Sc reen Negative (Negative) ng/mL U Benzodiazepines Scrn Negative (Negative) ng/mL Urine Cocaine Scre en Negative (Negative) ng/mL U Marijuana (THC) Screen Negative (Negative) ng/mL 03/20/20 Range/Units 05:10 WBC (4.0-10.0) 10^3/ uL RBC (4.1-5.3) 10^6/u L Hgb (11.5-15.3) g/dL Hct (37.0-47.0) % MCV (81-99) fL MCH (28.0-34.0) pg MCHC (30.0-36.0) g/dL RDW (12.1-15.1) % Plt Count (130-400) 10^3/c mm MPV (7.4-10.4) fL Neut % (Auto) % Lymph % (Auto) % [place] % (Auto) % Eos % (Auto) % Baso % (Auto) % Neut # (Auto) (1.8-7.7) 10^3/u L Lymph # (Auto) (0.8-4.8) 10^3/u L [place] # (Auto) (0.2-0.9) 10^3/u L Eos # (Auto) (0.0-0.8) 10^3/u L Baso # (Auto) (0.0-0.1) 10^3/u L Nucleated RBC % (a uto) % Nucleated RBCs # /100WBC D-Dimer (0-0.59) ug/mIFE U Sodium (136-145) mmol/L Potassium (3.5-5.1) mmol/L Chloride (98-107) mmol/L Carbon Dioxide (22-29) mmol/L Anion Gap (5-19) BUN (6-20) mg/dL Creatinine (0.5-0.9) mg/dL GFR Calculation (90-130) mL/min Glucose (65-115) mg/dL Calculated Osmolal ity (285-295) mOsm/k g Calcium (8.5-10.5) mg/dL Total Bilirubin (0.15-1.2) mg/dL AST (0-32) U/L ALT (0-33) U/L Alkaline Phosphata se (35-105) IU/L Troponin T Baselin e (0-10) ng/L Troponin T 120 Min [place] 6.00 (0-10) ng/L Delta Troponin T 0 (0-10) ABS# Total Protein (6.6-8.7) g/dL Albumin (3.5-5.2) g/dL Globulin (1.3-4.6) g/dL HCG, Qual (Negative) Urine Opiates Scre en (Negative) ng/mL Ur Barbiturates Sc reen (Negative) ng/mL Ur Phencyclidine S crn (Negative) ng/mL Ur Amphetamines Sc reen (Negative) ng/mL U Benzodiazepines Scrn (Negative) ng/mL Urine Cocaine Scre en (Negative) ng/mL U Marijuana (THC) Screen (Negative) ng/mL Imaging Data^: CT Chest: Radiologist's impression: [address] [address] [address] Scan Report Signed Patient: Franco Morrell #: [id number] : 1980Acct#:[id number] Age/Sex: 39 / FADM Date: 03/20/20 Loc: ERRoom/Bed: Attending Dr: Ordering Provider/Ordering MD: Sharno Campbell DO Date of Service: 03/20/20 Procedure(s): CT angio chest PE protcl [id number] Accession Number(s): [id number] Report Number: [id number] PROCEDURE INFORMATION: Exam: CT Angiography Chest With Contrast Exam date and time: 03/20/2020 5:14 AM Age: 39 years old Clinical indication: Abnormal findings; Abnormal diagnostic tests; Elevated d-dimer; Dyspnea; Additional info: Tachycardia, chest pain, positive d-dimer TECHNIQUE: Imaging protocol: Computed tomographic angiography of the chest with intravenous contrast. 3D rendering: MIP and/or 3D reconstructed images were created by the technologist. Radiation optimization: All CT scans at this facility use at least one of these dose optimization techniques: automated exposure control; mA and/or kV adjustment per patient size (includes targeted exams where dose is matched to clinical indication); or iterative reconstruction. Contrast material: OMNI 350; Contrast volume: 95 ml; Contrast route: INTRAVENOUS (IV); COMPARISON: CR XR chest 1V portable [id number] 03/20/2020 3:04 AM RADIATION DOSE METRICS: Total DLP (mGy-cm): 1260.55 FINDINGS: Pulmonary arteries: Normal. No pulmonary emboli. Aorta: Unremarkable. No aortic aneurysm. No aortic dissection. Lungs: Unremarkable. No consolidation. No masses. Pleural space: Unremarkable. No pneumothorax. No pleural effusion. Heart: Unremarkable. No cardiomegaly. No pericardial effusion. Lymph nodes: Unremarkable. No enlarged lymph nodes. Bones/joints: Degenerative changes are present. No acute fracture. Soft tissues: Unremarkable. CT/CT angio chest PE protcl [id number] IMPRESSION: No acute findings. Specifically negative for pulmonary embolism. Negative for aortic aneurysm or dissection Radiation Dose CTDIVOL = (mGy): DLP = 1260.55 (mGy-cm) Dictated By:Phu Berg Signed By:Desi Bergigned Date/Time:03/20/20541 DD/ 9 EKG Data^: EKG 1: Attestation: I personally reviewed and interpreted this EKG as follows: EKG interpretation date: 03/20/20 EKG interpretation time: 02:54 Interpretation: Normal sinus rhythm at 127 beats a minute, no acute ST-T wave changes. No blocks, normal intervals. Computer generated interpretation: Chest X-Ray 08/11/20 03:00 IMPRESSION: No acute findings. Chest CTA 03/20/20 04:44 IMPRESSION: No acute findings. Specifically negative for pulmonary embolism. Negative for aortic aneurysm or dissection Radiation Dose CTDIVOL = (mGy): DLP = 1260.55 (mGy-cm) EKG 2: Attestation: I personally reviewed and interpreted this EKG as follows: EKG interpretation date: 03/20/20 EKG interpretation time: 05:56 Interpretation: Normal sinus rhythm 105 beats a minute, no acute ST or T wave changes. Computer generated interpretation: Chest X-Ray 03/20/20 03:00 IMPRESSION: No acute findings. Chest CTA 03/20/20 04:44 IMPRESSION: No acute findings. Specifically negative for pulmonary embolism. Negative for aortic aneurysm or dissection Radiation Dose CTDIVOL = (mGy): DLP = 1260.55 (mGy-cm) Discharge Plan Discharge Patient Disposition: Home Clinical Impression: Chest pain Qualifiers: Chest pain type: unspecified Qualified Code(s): R07.9 - Chest pain, unspecified Condition: Stable Prescriptions: New hydroxyzine pamoate 25 mg capsule 25 mg PO Q6H PRN (Reason: anxiety) Qty: 30 RF: 0 No Action propranolol 80 mg tablet 40 mg PO BID RF: 0 aspirin [Fish Chewable Aspirin] 81 mg tablet,chewable 81 mg PO DAILY RF: 0 Chantix Starting Month Box 0.5 mg (11)- 1 mg (42) tablets,dose pack See Rx Instructions PO PER PKG DIR Qty: 53 RF: 0 Vitamin B-12 See Rx Instructions .ROUTE .COMPLEX RF: 0 lisinopril 10 mg tablet 10 mg PO DAILY Qty: 14 RF: 0 Discharge Orders: Discharge Order (Routine); Ordered 03/20/20 Ordered By: Sharon Campbell Referrals: Camila Menezes MD [Primary Care Provider] - 1-3 days [facility], [Staff Physician] - 1-3 days (Call [facility] and [place] for appointment to be seen as soon as possible.) Discharge Diet: Advance as tolerated Discharge Activity: Increase activity as tolerated Patient Instructions: Chest Pain (ED), Anxiety (ED) Activity Restrictions/Additional Instructions: Please return to the ER immediately for any of the signs or symptoms listed on your discharge instruction sheets, worsening/changing of your symptoms, you are not getting better as quickly as expected, or for ANY other cause or concerns. You have been offered further evaluation and care here to include further observation and investigation of your heart. You have even been offered admission but have declined. Of course any heart problem can be life-threatening so if your symptoms change or worsen please return here immediately for recheck and further evaluation and care. Discharge Date/Time: 03/20/20 06:57 Sign Out Sign Out Data: Patient Sign Out occurred on 03/20/20 at 03:17. Patient's care was discussed, and care was transferred from to Sharon Campbell. Coding Level of Care Code ED [facility] Fwd Exam Comprehensive Documented by User: Edgardo Trent DO 03/20/20 07:57 HPI - General Adult General: Chief complaint: Chest Pain Stated complaint: PAIN IN CHEST, NECK, HEAD Time Seen by Provider: 03/20/20 02:59 PFSH ED PFSH: Medical History Kidney stones Surgical History Tubal ligation status (~2005) Family History Mother Cancer Diabetes Grandmother Cancer Family/Other Diabetes Aunt Denies family history of CAD (coronary artery disease) Clotting disorder Dementia Hyperlipidemia Psychiatric illness Chronic kidney disease (CKD) Anesthesia complication Bleeding disorder Family history of premature coronary artery disease Lung disease Hypertension Social History Smoking and tobacco status: current every day smoker cigarettes Packs smoked per day: 1 Course Vital Signs: Vital signs: Vital Signs Temperature 96.2 F L 03/20/20 02:33 Pulse Rate 98 03/20/20 06:50 Respiratory Rate 14 03/20/20 06:50 Blood Pressure 134/87 08/11/20 06:50 Pulse Oximetry 98 03/20/20 06:50 MDM - General Adult MDM Narrative: Medical decision making narrative: Chart reviewed, I did not see the pt as Iwas no longer on shift when pt was seen by Claudine Coley. Lab Data: Labs: Lab Results 03/20/20 03/20/20 03/20/20 Range/Units 03:11 03:11 03:11 WBC 7.6 (4.0-10.0) 10^3/ uL RBC 4.67 (4.1-5.3) 10^6/u L Hgb 12.0 (11.5-15.3) g/dL Hct 38.2 (37.0-47.0) % MCV 81.8 (81-99) fL MCH 25.7 L (28.0-34.0) pg MCHC 31.4 (30.0-36.0) g/dL RDW 16.2 H (12.1-15.1) % Plt Count 345 (130-400) 10^3/c mm MPV 10.0 (7.4-10.4) fL Neut % (Auto) 92.9 % Lymph % (Auto) 4.7 % [place] % (Auto) 0.7 % Eos % (Auto) 0.8 % Baso % (Auto) 0.4 % Neut # (Auto) 7.07 (1.8-7.7) 10^3/u L Lymph # (Auto) 0.4 L (0.8-4.8) 10^3/u L [place] # (Auto) 0.1 L (0.2-0.9) 10^3/u L Eos # (Auto) 0.1 (0.0-0.8) 10^3/u L Baso # (Auto) 0.0 (0.0-0.1) 10^3/u L Nucleated RBC % (a uto) 0 % Nucleated RBCs # 0.0 /100WBC D-Dimer (0-0.59) ug/mIFE U Sodium 137 (136-145) mmol/L Potassium 4.0 (3.5-5.1) mmol/L Chloride 104 (98-107) mmol/L Carbon Dioxide 23 (22-29) mmol/L Anion Gap 14.0 (5-19) BUN 12 (6-20) mg/dL Creatinine 1.0 H (0.5-0.9) mg/dL GFR Calculation 62.4 L (90-130) mL/min Glucose 109 (65-115) mg/dL Calculated Osmolal ity 281 L (285-295) mOsm/k g Calcium 9.7 (8.5-10.5) mg/dL Total Bilirubin 0.6 (0.15-1.2) mg/dL AST 86 H (0-32) U/L ALT 52 H (0-33) U/L Alkaline Phosphata se 97 (35-105) IU/L Troponin T Baselin e 6 (0-10) ng/L Troponin T 120 Min [place] (0-10) ng/L Delta Troponin T (0-10) ABS# Total Protein 6.3 L (6.6-8.7) g/dL Albumin 4.0 (3.5-5.2) g/dL Globulin 2.3 (1.3-4.6) g/dL HCG, Qual (Negative) Urine Opiates Scre en (Negative) ng/mL Ur Barbiturates Sc reen (Negative) ng/mL Ur Phencyclidine S crn (Negative) ng/mL Ur Amphetamines Sc reen (Negative) ng/mL U Benzodiazepines Scrn (Negative) ng/mL Urine Cocaine Scre en (Negative) ng/mL U Marijuana (THC) Screen (Negative) ng/mL 03/20/20 03/20/20 03/20/20 Range/Units 03:11 03:11 03:15 WBC (4.0-10.0) 10^3/ uL RBC (4.1-5.3) 10^6/u L Hgb (11.5-15.3) g/dL Hct (37.0-47.0) % MCV (81-99) fL MCH (28.0-34.0) pg MCHC (30.0-36.0) g/dL RDW (12.1-15.1) % Plt Count (130-400) 10^3/c mm MPV (7.4-10.4) fL Neut % (Auto) % Lymph % (Auto) % [place] % (Auto) % Eos % (Auto) % Baso % (Auto) % Neut # (Auto) (1.8-7.7) 10^3/u L Lymph # (Auto) (0.8-4.8) 10^3/u L [place] # (Auto) (0.2-0.9) 10^3/u L Eos # (Auto) (0.0-0.8) 10^3/u L Baso # (Auto) (0.0-0.1) 10^3/u L Nucleated RBC % (a uto) % Nucleated RBCs # /100WBC D-Dimer 0.91 H (0-0.59) ug/mIFE U Sodium (136-145) mmol/L Potassium (3.5-5.1) mmol/L Chloride (98-107) mmol/L Carbon Dioxide (22-29) mmol/L Anion Gap (5-19) BUN (6-20) mg/dL Creatinine (0.5-0.9) mg/dL GFR Calculation (90-130) mL/min Glucose (65-115) mg/dL Calculated Osmolal ity (285-295) mOsm/k g Calcium (8.5-10.5) mg/dL Total Bilirubin (0.15-1.2) mg/dL AST (0-32) U/L ALT (0-33) U/L Alkaline Phosphata se (35-105) IU/L Troponin T Baselin e (0-10) ng/L Troponin T 120 Min [place] (0-10) ng/L Delta Troponin T (0-10) ABS# Total Protein (6.6-8.7) g/dL Albumin (3.5-5.2) g/dL Globulin (1.3-4.6) g/dL HCG, Qual Negative (Negative) Urine Opiates Scre en Negative (Negative) ng/mL Ur Barbiturates Sc reen Negative (Negative) ng/mL Ur Phencyclidine S crn Negative (Negative) ng/mL Ur Amphetamines Sc reen Negative (Negative) ng/mL U Benzodiazepines Scrn Negative (Negative) ng/mL Urine Cocaine Scre en Negative (Negative) ng/mL U Marijuana (THC) Screen Negative (Negative) ng/mL 03/20/20 Range/Units 05:10 WBC (4.0-10.0) 10^3/ uL RBC (4.1-5.3) 10^6/u L Hgb (11.5-15.3) g/dL Hct (37.0-47.0) % MCV (81-99) fL MCH (28.0-34.0) pg MCHC (30.0-36.0) g/dL RDW (12.1-15.1) % Plt Count (130-400) 10^3/c mm MPV (7.4-10.4) fL Neut % (Auto) % Lymph % (Auto) % [place] % (Auto) % Eos % (Auto) % Baso % (Auto) % Neut # (Auto) (1.8-7.7) 10^3/u L Lymph # (Auto) (0.8-4.8) 10^3/u L [place] # (Auto) (0.2-0.9) 10^3/u L Eos # (Auto) (0.0-0.8) 10^3/u L Baso # (Auto) (0.0-0.1) 10^3/u L Nucleated RBC % (a uto) % Nucleated RBCs # /100WBC D-Dimer (0-0.59) ug/mIFE U Sodium (136-145) mmol/L Potassium (3.5-5.1) mmol/L Chloride (98-107) mmol/L Carbon Dioxide (22-29) mmol/L Anion Gap (5-19) BUN (6-20) mg/dL Creatinine (0.5-0.9) mg/dL GFR Calculation (90-130) mL/min Glucose (65-115) mg/dL Calculated Osmolal ity (285-295) mOsm/k g Calcium (8.5-10.5) mg/dL Total Bilirubin (0.15-1.2) mg/dL AST (0-32) U/L ALT (0-33) U/L Alkaline Phosphata se (35-105) IU/L Troponin T Baselin e (0-10) ng/L Troponin T 120 Min [place] 6.00 (0-10) ng/L Delta Troponin T 0 (0-10) ABS# Total Protein (6.6-8.7) g/dL Albumin (3.5-5.2) g/dL Globulin (1.3-4.6) g/dL HCG, Qual (Negative) Urine Opiates Scre en (Negative) ng/mL Ur Barbiturates Sc reen (Negative) ng/mL Ur Phencyclidine S crn (Negative) ng/mL Ur Amphetamines Sc reen (Negative) ng/mL U Benzodiazepines Scrn (Negative) ng/mL Urine Cocaine Scre en (Negative) ng/mL U Marijuana (THC) Screen (Negative) ng/mL EKG Data^: EKG 1: Computer generated interpretation: Chest X-Ray 03/20/20 03:00 IMPRESSION: No acute findings. Chest CTA 03/20/20 04:44 IMPRESSION: No acute findings. Specifically negative for pulmonary embolism. Negative for aortic aneurysm or dissection Radiation Dose CTDIVOL = (mGy): DLP = 1260.55 (mGy-cm) EKG 2: Computer generated interpretation: Chest X-Ray 03/20/20 03:00 IMPRESSION: No acute findings. Chest CTA 03/20/20 04:44 IMPRESSION: No acute findings. Specifically negative for pulmonary embolism. Negative for aortic aneurysm or dissection Radiation Dose CTDIVOL = (mGy): DLP = 1260.55 (mGy-cm) Discharge Plan Discharge Patient Disposition: Home Clinical Impression: Chest pain Qualifiers: Chest pain type: unspecified Qualified Code(s): R07.9 - Chest pain, unspecified Condition: Stable Prescriptions: New hydroxyzine pamoate 25 mg capsule 25 mg PO Q6H PRN (Reason: anxiety) Qty: 30 RF: 0 No Action propranolol 80 mg tablet 40 mg PO BID RF: 0 aspirin [Fish Chewable Aspirin] 81 mg tablet,chewable 81 mg PO DAILY RF: 0 Chantix Starting Month Box 0.5 mg (11)- 1 mg (42) tablets,dose pack See Rx Instructions PO PER PKG DIR Qty: 53 RF: 0 Vitamin B-12 See Rx Instructions .ROUTE .COMPLEX RF: 0 lisinopril 10 mg tablet 10 mg PO DAILY Qty: 14 RF: 0 Discharge Orders: Discharge Order (Routine); Ordered 03/20/20 Ordered By: Sharon Campbell Referrals: Camila Menezes MD [Primary Care Provider] - 1-3 days [facility], [Staff Physician] - 1-3 days (Call [facility] and [place] for appointment to be seen as soon as possible.) Discharge Diet: Advance as tolerated Discharge Activity: Increase activity as tolerated Patient Instructions: Chest Pain (ED), Anxiety (ED) Activity Restrictions/Additional Instructions: Please return to the ER immediately for any of the signs or symptoms listed on your discharge instruction sheets, worsening/changing of your symptoms, you are not getting better as quickly as expected, or for ANY other cause or concerns. You have been offered further evaluation and care here to include further observation and investigation of your heart. You have even been offered admission but have declined. Of course any heart problem can be life-threatening so if your symptoms change or worsen please return here immediately for recheck and further evaluation and care. Discharge Date/Time: 03/20/20 06:57 Sign Out Sign Out Data: Patient Sign Out occurred on 03/20/20 at 03:17. Patient's care was discussed, and care was transferred from to Sharon Campbell. Coding Level of Care Code ED County Assessor for [place] Fwd Exam Comprehensive
--- NOTE | 2020-03-20 03:00 | ECG_ITS ---
[facility] Test Date: 2020-03-20 Pat Name: wAa Morrell Department: Room: Gender: Female [employer] Developer: : 1980 Requested By: Claudine Coley Order Number: [id number] Zohaib MD: Danielle Chappell M.D. Measurements Intervals [place] Rate: 127 P: 56 ME: 148 QRS: 59 QRSD: 86 T: 43 QT: 325 QTc: 474 Interpretive Statements SINUS TACHYCARDIA ABNORMAL RHYTHM ECG Compared to ECG 01/20/2020 10:55:01 Sinus rhythm no longer present Electronically Signed On 03-21-2020 0:26:09 CDT by Danielle Chappell M.D. [email or web address] Businessour lady of [email or web address]/store/[id number] f
--- NOTE | 2020-03-20 03:00 | XRR_ITS ---
PROCEDURE INFORMATION: Exam: XR Chest, 1 View Exam date and time: 03/20/2020 3:15 AM Age: 39 years old Clinical indication: Pain; Chest pressure; Additional info: Chest pain TECHNIQUE: Imaging protocol: XR of the chest Views: 1 view. COMPARISON: CR XR chest 1V portable [id number] 01/20/2020 10:53 AM FINDINGS: Lungs: Unremarkable. No consolidation. Pleural space: Unremarkable. No pleural effusion. No pneumothorax. Heart/Mediastinum: Unremarkable. No cardiomegaly. Bones/joints: Unremarkable. XR/XR chest 1V portable [id number] IMPRESSION: No acute findings.
[2020-03-20 03:19] LABS: Basophils % 0.4 %; Eosinophils # 0.1 10^3/uL (0.0-0.8); Eosinophils % 0.8 %; Hematocrit 38.2 % (37.0-47.0); Lymphocytes # 0.4 10^3/uL (0.8-4.8); Lymphocytes % 4.7 %; Mean Corpuscular HGB Conc 31.4 g/dL (30.0-36.0); Mean Corpuscular Hemoglobin 25.7 pg (28.0-34.0); Mean Corpuscular Volume 81.8 fL (81-99); Monocytes # 0.1 10^3/uL (0.2-0.9); Monocytes % 0.7 %; Neutrophils # 7.07 10^3/uL (1.8-7.7); Neutrophils % 92.9 %; Nucleated Red Blood Cells % 0 %; Platelet Count 345 10^3/cmm (130-400); Red Blood Count 4.67 10^6/uL (4.1-5.3); Red Cell Distribution Width 16.2 % (12.1-15.1); White Blood Count 7.6 10^3/uL (4.0-10.0)
[2020-03-20] MEDS: sodium chloride 0.9% 1,000 ML 999 ML IV ×2 (03:21→05:56)
[2020-03-20 03:29] VITALS: BP 130/74; PULSE 114; RESP 18; O2SAT 97
[2020-03-20 03:38] LABS: Alanine Aminotransferase 52 U/L (0-33); Alkaline Phosphatase 97 IU/L (35-105); Aspartate Amino Transferase 86 U/L (0-32); Blood Urea Nitrogen 12 mg/dL (6-20); Calcium 9.7 mg/dL (8.5-10.5); Carbon Dioxide 23 mmol/L (22-29); Chloride 104 mmol/L (98-107); Creatinine Clr Calc Pharmacy 112.8072; Globulin 2.3 g/dL (1.3-4.6); Glomerular Filtration Rate 62.4 mL/min (90-130); Glucose 109 mg/dL (65-115); HCG, Serum Qual Negative (Negative); Osmolality Calculated 281 mOsm/kg (285-295); Sodium 137 mmol/L (136-145); Total Bilirubin 0.6 mg/dL (0.15-1.2); Total Protein 6.3 g/dL (6.6-8.7)
[2020-03-20 03:43] LABS: Troponin(5th) Baseline 6 ng/L (0-10)
[2020-03-20 03:59] LABS: Amphetamines Screen Urine Negative (Negative); Barbiturates Screen Urine Negative (Negative); Benzodiazepines Screen Urine Negative (Negative); Cocaine Screen Urine Negative (Negative); Opiate Screen Urine Negative (Negative); PCP Screen Urine Negative (Negative); THC Screen Urine Negative (Negative)
[2020-03-20 04:38] LABS: D Dimer 0.91 ug/mIFEU (0-0.59)
--- NOTE | 2020-03-20 04:44 | CTR_ITS ---
PROCEDURE INFORMATION: Exam: CT Angiography Chest With Contrast Exam date and time: 03/20/2020 5:14 AM Age: 39 years old Clinical indication: Abnormal findings; Abnormal diagnostic tests; Elevated d-dimer; Dyspnea; Additional info: Tachycardia, chest pain, positive d-dimer TECHNIQUE: Imaging protocol: Computed tomographic angiography of the chest with intravenous contrast. 3D rendering: MIP and/or 3D reconstructed images were created by the technologist. Radiation optimization: All CT scans at this facility use at least one of these dose optimization techniques: automated exposure control; mA and/or kV adjustment per patient size (includes targeted exams where dose is matched to clinical indication); or iterative reconstruction. Contrast material: OMNI 350; Contrast volume: 95 ml; Contrast route: INTRAVENOUS (IV); COMPARISON: CR XR chest 1V portable [id number] 03/20/2020 3:04 AM RADIATION DOSE METRICS: Total DLP (mGy-cm): 1260.55 FINDINGS: Pulmonary arteries: Normal. No pulmonary emboli. Aorta: Unremarkable. No aortic aneurysm. No aortic dissection. Lungs: Unremarkable. No consolidation. No masses. Pleural space: Unremarkable. No pneumothorax. No pleural effusion. Heart: Unremarkable. No cardiomegaly. No pericardial effusion. Lymph nodes: Unremarkable. No enlarged lymph nodes. Bones/joints: Degenerative changes are present. No acute fracture. Soft tissues: Unremarkable. CT/CT angio chest PE protcl [id number] IMPRESSION: No acute findings. Specifically negative for pulmonary embolism. Negative for aortic aneurysm or dissection Radiation Dose CTDIVOL = (mGy): DLP = 1260.55 (mGy-cm)
[2020-03-20 05:13] VITALS: BP 132/87; PULSE 98; RESP 16; O2SAT 98
[2020-03-20] MEDS: iohexol 300 mg/mL 100 mL Btl IV (05:24)
[2020-03-20 05:35] LABS: Troponin 5 2HR Delta 0 ABS# (0-10)
[2020-03-20 06:02] VITALS: PULSE 108; RESP 17; O2SAT 98
[2020-03-20 06:50] VITALS: BP 134/87; PULSE 98; RESP 14; O2SAT 98
== END 2020-03-20 06:57 | disposition home or self-care (01) ==
PROVIDERS: Physician Assistant; Emergency Provider Emergency Medicine; PCP Family Medicine
DX: R07.9 Chest pain, unspecified (principal); Z79.82 Long term (current) use of aspirin; F17.210 Nicotine dependence, cigarettes, uncomplicated
CPT/HCPCS: 12345; 36415; 71045; 71275; 80053; 80306; 84484; 84703; 85025; 85378; 93005; 96360; 96361; 99283; 99284; J3490; J7030; Q9967

== ENCOUNTER 2020-04-13 10:00 | Outpatient (CLI) | payer BC, SELFPAY ==
--- NOTE | 2020-04-13 10:02 | US_ITS ---
WS: [id number] RIGHT UPPER QUADRANT ULTRASOUND HISTORY: ATYPICAL CHEST PAIN/MORBID OBESITY/HEART BURN COMPARISON: None available. Liver: 18.5 cm in length. Moderate hepatomegaly marked attenuation from hepatic steatosis. Entire trae er is not well visualized. No mass or bile duct dilatation. Gallbladder: Normally distended gallbladder with no stones or wall thickening. CBD: 0.2 cm Pancreas: Normal size and echogenicity. Right kidney: 11.4 cm in length. Poor visualization. No abnormality. Aorta and IVC: Unremarkable abdominal aorta and IVC. No ascites. US/US gall bladder [id number] IMPRESSION: 1. Technically difficult examination due to body habitus. 2. Moderate hepatomegaly with hepatic steatosis. 3. Negative gallbladder.
== END 2020-04-13 10:01 | disposition home or self-care (01) ==
LOC: US 10:01
PROVIDERS: PCP Family Medicine; Visit Provider Nurse Practitioner Family
DX: R07.89 Other chest pain (principal); E66.01 Morbid (severe) obesity due to excess calories; R12 Heartburn; R16.0 Hepatomegaly, not elsewhere classified; K76.0 Fatty (change of) liver, not elsewhere classified
CPT/HCPCS: 76705

== ENCOUNTER 2020-06-27 20:00 | Outpatient (CLI) | payer BC, SELFPAY | END 2020-06-27 20:01 | disposition home or self-care (01) | LOC: SLEEP 06-28 10:22 | PROVIDERS: PCP Family Medicine; Visit Provider Surgery | DX: G47.33 Obstructive sleep apnea (adult) (pediatric) (principal) | CPT/HCPCS: 95810 ==

== ENCOUNTER → 2020-09-11 15:22 | Outpatient (BNVA) | payer BC, SELFPAY | PROVIDERS: PCP Nurse Practitioner Family; Visit Provider Internal Medicine | DX: E55.9 Vitamin D deficiency, unspecified (principal); E66.01 Morbid (severe) obesity due to excess calories; Z68.42 Body mass index [BMI] 45.0-49.9, adult; E83.52 Hypercalcemia; F41.9 Anxiety disorder, unspecified; N20.0 Calculus of kidney; R52 Pain, unspecified; R63.5 Abnormal weight gain; Z13.1 Encounter for screening for diabetes mellitus; Z72.89 Other problems related to lifestyle | CPT/HCPCS: 99205 ==

== ENCOUNTER 2020-09-16 09:08 | Outpatient (CLI) | payer BC, SELFPAY ==
[2020-09-16 13:45] LABS: Parathyroid Hormone 45.9 pg/mL (15-65)
[2020-09-16 14:08] LABS: Urine Creatinine 94 mg/dL (28-217)
[2020-09-16 15:03] LABS: Total Volume Urine 2050 ml
[2020-09-16 16:30] LABS: Free T4 Free Thyroxine 1.18 ng/dL (0.82-1.77); Thyroid Stimulating Hormone 0.43 uIU/mL (0.27-4.20)
[2020-09-19 16:48] LABS: Total Urine 2050 mL; Urine Creatinine 1.97 g/24 h (0.50-2.15)
== END 2020-09-16 09:09 | disposition home or self-care (01) ==
PROVIDERS: PCP Nurse Practitioner Family; Visit Provider Internal Medicine
DX: E83.52 Hypercalcemia (principal); R63.5 Abnormal weight gain
CPT/HCPCS: 82310; 82530; 82570; 83970; 84439; 84443

== ENCOUNTER → 2020-09-17 10:36 | Outpatient (BNVA) | payer BC, SELFPAY | PROVIDERS: PCP Nurse Practitioner Family; Visit Provider Obstetrics & Gynecology | DX: N94.6 Dysmenorrhea, unspecified (principal); E66.9 Obesity, unspecified; N92.0 Excessive and frequent menstruation with regular cycle; Z13.1 Encounter for screening for diabetes mellitus | CPT/HCPCS: 83001; 83036; 84146 ==

== ENCOUNTER → 2020-11-01 11:59 | Outpatient (BNVA) | payer BC, SELFPAY | PROVIDERS: PCP Nurse Practitioner Family; Visit Provider Obstetrics & Gynecology | DX: Z20.828 Contact with and (suspected) exposure to other viral communicable diseases (principal) | CPT/HCPCS: 87635 ==

== ENCOUNTER 2020-11-07 07:22 | Day surgery (SDC) | payer BC, SELFPAY ==
[2020-11-05 10:16] VITALS: BMI 46.0
--- NOTE | 2020-11-05 10:45 | P.ANESASSM_ITS ---
Pre-Anesthetic Assessment Pre-Anesthetic Assessment: Height/Weight: Height 1.69 m Weight 131.542 kg Preop Diagnosis: chronic pelvic pain, dysmenorrhea, menorrhagia Proposed Procedure: Operation Date: 11/07/20 14:10 Proposed Procedures p Laparoscopy Diagnostic 96268 N94.6 N10.2 N92.0(Not Applicable) - Salty macias MD Familial anesthetic complications: Woke up during lithotripsy and tried to leave Social: Comment: Fatmata, former smoker (quit in august) Exam: Pre-Anes Outpt Exam: alert, oriented x 3, clear to auscultation bilaterally and regular rate & rhythm Airway: Cervical ROM: WNL MP: 4 Dentition: Other (missing) CV/HEM: CV/HEM: HTN Metabolic: Metabolic: Morbid obesity Anesthetic Plan: ASA status: 2 Anesthesia: MAC Risk of > 500 ml blood loss (7ml/kg in children): No PFSH Anesthesia PFSH: Medical History Kidney stones Moderate obstructive sleep apnea Surgical History Tubal ligation status (~2005) Family History Mother Cancer Diabetes Grandmother Cancer Family/Other Diabetes Aunt Denies family history of CAD (coronary artery disease) Clotting disorder Dementia Hyperlipidemia Psychiatric illness Chronic kidney disease (CKD) Anesthesia complication Bleeding disorder Family history of premature coronary artery disease Lung disease Hypertension Social History (Updated 11/05/20 @ 08:18 by Robyn Hardin RN) Smoking and tobacco status: current every day smoker e-cigarettes E-Cigarette D etails: vaporizer device and with nicotine E-cig/vape details: uses daily, equivalent to 1 pack per day Alcohol intake: current Alcohol intake frequency: holidays/special occasions only Alcohol type: hard liquor Substance/Drug Use: current Substance/Drug use frequency: few times a week Substance/Drug use type: Marijuana Other substance/drug use details: marijuana, has a medical card, she states that she has not used in 1 week Female Reproductive History: Date of last menstrual period: 10/29/20 Data Anesthesia Cardiac Studies: No Data to Display
[2020-11-05 10:55] LABS: Add Urine Microscopic? NO
[2020-11-05 10:59] LABS: Basophils # 0.1 10^3/uL (0.0-0.1); Basophils % 0.8 %; Eosinophils # 0.2 10^3/uL (0.0-0.8); Eosinophils % 2.7 %; Hematocrit 38.4 % (37.0-47.0); Hemoglobin 12.2 g/dL (11.5-15.3); Lymphocytes # 1.9 10^3/uL (0.8-4.8); Lymphocytes % 24.7 %; Mean Corpuscular HGB Conc 31.8 g/dL (30.0-36.0); Mean Corpuscular Hemoglobin 26.4 pg (28.0-34.0); Mean Corpuscular Volume 83.1 fL (81-99); Monocytes # 0.5 10^3/uL (0.2-0.9); Monocytes % 5.7 %; Neutrophils # 5.17 10^3/uL (1.8-7.7); Neutrophils % 65.8 %; Nucleated Red Blood Cells % 0 %; Platelet Count 387 10^3/cmm (130-400); Red Blood Count 4.62 10^6/uL (4.1-5.3); Red Cell Distribution Width 15.8 % (12.1-15.1); White Blood Count 7.9 10^3/uL (4.0-10.0)
[2020-11-05 11:06] LABS: Urine Appearance Clear (CLEAR); Urine Color Yellow (Yellow); pH Urine 6 (5-7)
[2020-11-05 11:07] LABS: Bilirubin Urine Neg (Negative); Blood Urine Neg (Negative); Glucose Urine UA Norm (Normal); Ketones Urine Negative (Negative); Leukocyte Esterase Urine Negative (Negative); Nitrate Urine Negative (Negative); OR HCG Qualitative Urine Negative (Negative); Protein Urine Neg (Negative); Urobilinogen Urine 1 mg/dL (Negative)
[2020-11-05 11:26] LABS: Alanine Aminotransferase 17 U/L (0-33); Albumin Level 4.4 g/dL (3.5-5.2); Alkaline Phosphatase 76 IU/L (35-105); Anion Gap 12.8 (5-19); Aspartate Amino Transferase 17 U/L (0-32); Blood Urea Nitrogen 12 mg/dL (6-20); Calcium 9.5 mg/dL (8.5-10.5); Carbon Dioxide 28 mmol/L (22-29); Chloride 101 mmol/L (98-107); Globulin 2.8 g/dL (1.3-4.6); Glomerular Filtration Rate 94.2 mL/min (90-130); Glucose 96 mg/dL (65-115); Osmolality Calculated 286 mOsm/kg (285-295); Potassium 3.8 mmol/L (3.5-5.1); Sodium 138 mmol/L (136-145); Total Bilirubin 0.3 mg/dL (0.15-1.2); Total Protein 7.2 g/dL (6.6-8.7)
[2020-11-07] VITALS (8 sets, daily range): BP systolic 130–151; BP diastolic 62–97; PULSE 63–99; RESP 15–21; TEMP 36.3–36.6; O2SAT 94–97
[2020-11-07] MEDS: sodium chloride 0.9% 500 ML IV (08:35)
[2020-11-07] MEDS: scopolamine 1.5 Patch 1 PATCH TRANSDERMA (08:35)
--- NOTE | 2020-11-07 10:35 | W.PM.OPSUD ---
Surgery/Procedure H&P Update DATE OF PROCEDURE: November 07, 2020 DATE H&P PERFORMED: 11/05/20 H&P UPDATE INFORMATION: I have reviewed H&P completed within last 30 days, I have examined patient prior to procedure and No changes to prior documentation PREOP DIAGNOSIS: chronic pelvic pain, dysmenorrhea, menorrhagia PLANNED PROCEDURE: Operation Date: 11/07/20 09:20 Proposed Procedures p Laparoscopy Diagnostic 08481 N94.6 N10.2 N92.0(Not Applicable) - Salty Husain MD
[2020-11-07] MEDS: sodium chloride 0.9% 1,000 ML 30 ML IV (10:40)
[2020-11-07] MEDS: ceFOXitin 2,000 MG in sodium chloride 0.9% (plus) 50 ML 100 MG IV (10:48)
--- NOTE | 2020-11-07 11:33 | P.OP_ITS ---
Operative Report Date of procedure: November 07, 2020 Pre-op Diagnosis: chronic pelvic pain, dysmenorrhea, menorrhagia Post-op diagnosis: same Post-op Findings: Normal pelvic organs. Procedure Done: Diagnostic laparoscopy Pathology: none sent Surgeon: Salty Husain MD Anesthesia: General Estimated blood loss (mL): 5 Complications: none Condition: stable Disposition: PACU Brief History: 39-year-old female with chronic pelvic pain, dysmenorrhea, menorrhagia unresponsive to medical management Procedure: DESCRIPTION OF PROCEDURE: After informed consent, the patient was taken to the operating room where general anesthesia was administered. The patient was examined under anesthesia and found to have a normal uterus with normal adnexa. She was placed in the dorsal lithotomy position and prepped and draped in sterile fashion. Pre- Procedure Time-Out verifying the correct patient identity, correct procedure verified with consent, correct site and side, correct patient position, availability of correct implants and any special equipment or requirements was performed and acknowledge by the OR team. A weighted speculum was placed in the vagina, and the anterior lip of cervix was grasped with the single toothed tenaculum. Tenaculum was placed on anterior lip of cervix, uterine sound measured 10 cm. A uterine manipulator was advanced into the endocervical canal into endometrial cavity. Tenaculum was removed after uterine manipulator was secured. The speculum was removed from the vagina. An intraumbilical incision was made with a scalpel. While tenting up on the abdomen, a Verres needle with sleeve was admitted into the intra-abdominal cavity. A saline drop test was performed and noted to be within normal limits. Pneumoperitoneum was attained with 4 liters of carbon dioxide. The Verres needle was removed. A 5 mm trocar and sleeve were admitted into the abdomen and laparoscopic confirmation of location was achieved, A second incision was made 3 cm above the symphysis pubis, and a 5 mm trocar and sleeve were admitted into the abdomen under direct, laparoscopic visualization without complication. A survey revealed normal abdominal anatomy but omental adhesion to umbical area. The pelvic survey shows normal uterus, left and right adnexa post tubal ligation. A 5 mm blunt probe was advanced through the second trocar sleeve, and light manipulation of ovaries and uterus to assess the posterior aspects was performed. Carbon dioxide was allowed to escape from the abdomen. The instruments were removed, and skin cover with a bandage. The instruments were removed from the vagina, and excellent hemostasis was noted. The patient tolerated the procedure well, and sponge, lap and needle count were correct times two. The patient taken to the recovery room in good condition.
[2020-11-07] MEDS: fentaNYL 50 mcg/mL INJ 2mL IVP ×2 (11:49→11:54)
--- NOTE | 2020-11-07 12:02 | P.PCN_ITS ---
PACU note PACU note: VSS, Good respiratory effort, report to CLAM SHUCKING MACHINE TENDER Post-Anesthesia Exam: awake
--- NOTE | 2020-11-07 12:02 | PM.PACU ---
PACU note PACU note: VSS, Good respiratory effort, report to MOLD INJECTOR Post-Anesthesia Exam: awake
--- NOTE | 2020-11-07 18:05 | ANE.PACU2 ---
Inpatient post-anesthesia follow up: Airway intact: Yes Vital signs: Temperature 97.3 F Pulse Rate 68 Respiratory Rate 18 Blood Pressure 130/82 Pulse Oximetry 96 Oxygen Delivery Me thod Room Air Oxygen Flow Rate 8 Fraction of Inspir ed Oxygen Hydration adequate: Yes Nausea and vomiting: No Pain level: 3 Mental status: Baseline
== END 2020-11-07 12:45 | disposition home or self-care (01) ==
PROVIDERS: PCP Nurse Practitioner Family; Visit Provider Obstetrics & Gynecology
PROC: (CPT 49320; principal; 2020-11-07 09:10)
DX: R10.2 Pelvic and perineal pain (principal); G89.29 Other chronic pain; N94.6 Dysmenorrhea, unspecified; N92.0 Excessive and frequent menstruation with regular cycle; I10 Essential (primary) hypertension; E66.01 Morbid (severe) obesity due to excess calories; Z68.42 Body mass index [BMI] 45.0-49.9, adult; Z83.3 Family history of diabetes mellitus; F17.290 Nicotine dependence, other tobacco product, uncomplicated; G47.33 Obstructive sleep apnea (adult) (pediatric)
CPT/HCPCS: 49320; 36415; 80053; 81003; 81025; 84703; 85025; 86850; 86900; 96365; J0694; J1100; J1885; J2250; J2405; J2704; J2710; J3010; J3490; J7030; J7040

== ENCOUNTER → 2021-02-28 11:14 | Outpatient (BNVA) | payer BC, SELFPAY | PROVIDERS: PCP Nurse Practitioner Family; Visit Provider Surgery | DX: Z20.822 Contact with and (suspected) exposure to COVID-19 (principal) | CPT/HCPCS: 87635 ==

== ENCOUNTER 2021-03-05 05:55 | Day surgery (SDC) | payer BC, SELFPAY ==
[2021-03-01 12:16] VITALS: BMI 44.8
[2021-03-05 06:24] VITALS: BP 125/60; PULSE 66; RESP 18; TEMP 36.1; O2SAT 99
[2021-03-05] MEDS: sodium chloride 0.9% 1,000 ML 30 ML IV (06:29)
[2021-03-05 06:31] LABS: OR HCG Qualitative Urine Negative (Negative)
--- NOTE | 2021-03-05 06:36 | W.PM.OPSUD ---
Surgery/Procedure H&P Update DATE OF PROCEDURE: March 05, 2021 DATE H&P PERFORMED: 02/25/21 H&P UPDATE INFORMATION: I have reviewed H&P completed within last 30 days, I have examined patient prior to procedure and No changes to prior documentation PREOP DIAGNOSIS: GERD associated with morbid obesity PRIMARY INDICATION FOR PROCEDURE: The same PLANNED PROCEDURE: Operation Date: 03/05/21 07:00 Proposed Procedures p EGD 79254 K21.9(Not Applicable) - Derrek Sosa MD
--- NOTE | 2021-03-05 06:48 | ANES.PREANE2 ---
Pre-Anesthetic Assessment Pre-Anesthetic Assessment: Height/Weight: Height 1.73 m Weight 133.81 kg Temp Pulse Resp BP Pulse Ox 97.0 F L 66 18 125/60 99 03/05/21 06:24 03/05/21 06:24 03/05/21 06:24 03/05/21 06:24 03/05/21 06:24 Preop Diagnosis: GERD associated with morbid obesity Proposed Procedure: Operation Date: 03/05/21 07:00 Proposed Procedures p EGD 16586 K21.9(Not Applicable) - Derrek Sosa MD Familial anesthetic complications: panic right before going to sleep last time i was here Was Beta Christin taken within 24 hours: N/A Was Clonidine taken within 24 hours: N/A Last intake: Intake Last Liquid Date 03/04/21 Last Solid Date 03/04/21 Social: Social History: Tobacco and No alcohol Comment: vape and smoke Exam: Pre-Anes Outpt Exam: alert, oriented x 3, clear to auscultation bilaterally and regular rate & rhythm Airway: Submandibular: WNL Cervical ROM: WNL MP: 1 Dentition: Full Pulmonary: Pulmonary: Sleep apnea CV/HEM: CV/HEM: HTN : Comments: kidney stones with stents GI: GI: None reported Metabolic: Metabolic: Hyperlipidemia and Morbid obesity Musc/skel: Musc/skel: Lower Back Pain Neuropsych: Neuropsych: Anxiety and BAEZ (random) Anesthetic Plan: ASA status: 3 Anesthesia: MAC Risk of > 500 ml blood loss (7ml/kg in children): No Meds/Allergies Current Medications: Current Medications Generic Name Dose Route Start Last Admin Trade Name Freq PRN Reason Stop Dose Admin Sodium Chloride 1,000 mls @ 30 ml s/hr 03/05/21 06:15 03/05/21 06:29 Sodium Chloride 0.9% IV 30 mls/hr .Q24H KASEY Administration PFSH Anesthesia PFSH: Medical History Aftercare following surgery of the genitourinary system Kidney stones Moderate obstructive sleep apnea Surgical History H/O laparoscopy 11/07/2020- diagnostic laparoscopy performed by Dr. Husain at [facility] Tubal ligation status (~2006) Family History Mother Cancer Diabetes Grandmother Cancer Family/Other Diabetes Aunt Denies family history of CAD (coronary artery disease) Clotting disorder Dementia Hyperlipidemia Psychiatric illness Chronic kidney disease (CKD) Anesthesia complication Bleeding disorder Family history of premature coronary artery disease Lung disease Hypertension Social History Smoking and tobacco status: never smoked Alcohol intake: current Alcohol intake frequency: holidays/special occasions only Alcohol type: hard liquor Female Reproductive History: Date of last menstrual period: 10/29/20 Data Anesthesia Other Labs: Laboratory Results - last 48 hr 03/05/21 06:31 Urine HCG, Qual Negative Cardiac Studies: No Data to Display
[2021-03-05 07:10] VITALS: BP 111/66; PULSE 67; RESP 18; TEMP 36.2; O2SAT 98
--- NOTE | 2021-03-05 07:14 | ANE.PACU2 ---
Inpatient post-anesthesia follow up: Airway intact: Yes Vital signs: Temperature 97.2 F Pulse Rate 67 Respiratory Rate 18 Blood Pressure 111/66 Pulse Oximetry 98 Oxygen Delivery Me thod Room Air Oxygen Flow Rate Fraction of Inspir ed Oxygen Hydration adequate: Yes Nausea and vomiting: No Pain level: 1 Mental status: Baseline
[2021-03-05 07:25] VITALS: BP 108/90; PULSE 81; RESP 18; O2SAT 98
--- NOTE | 2021-03-05 15:35 | ANE.PACU2 ---
Inpatient post-anesthesia follow up: Airway intact: Yes Vital signs: Temperature 97.2 F Pulse Rate 81 Respiratory Rate 18 Blood Pressure 108/90 Pulse Oximetry 98 Oxygen Delivery Me thod Room Air Oxygen Flow Rate Fraction of Inspir ed Oxygen Hydration adequate: Yes Nausea and vomiting: No Pain level: 1 Mental status: Baseline
[2021-03-06 05:53] LABS: H. Pylori / CLO Test Negative
== END 2021-03-05 08:04 | disposition home or self-care (01) ==
PROVIDERS: Anesthesiology; Visit Provider Surgery
PROC: 0DJ08ZZ Inspection of Upper Intestinal Tract, Via Natural or Artificial Opening Endoscopic (ICD-10-PCS; CPT 43235; principal; 2021-03-05 07:00)
DX: K21.9 Gastro-esophageal reflux disease without esophagitis (principal); E66.01 Morbid (severe) obesity due to excess calories; Z68.41 Body mass index [BMI] 40.0-44.9, adult; K21.00 Gastro-esophageal reflux disease with esophagitis, without bleeding; K29.70 Gastritis, unspecified, without bleeding; I10 Essential (primary) hypertension; E78.5 Hyperlipidemia, unspecified; G47.33 Obstructive sleep apnea (adult) (pediatric)
CPT/HCPCS: 43239; 84703; 87077; 96360; J2704; J7030

== ENCOUNTER 2021-04-06 21:09 | Emergency (ER) | payer OTHER, BC, SELFPAY ==
[2021-04-06 21:29] VITALS: BP 145/73; PULSE 104; RESP 16; TEMP 36.4; O2SAT 98; BMI 44.6
[2021-04-07 00:05] VITALS: BP 107/54; PULSE 67; RESP 18; O2SAT 98
--- NOTE | 2021-04-07 00:07 | XRR_ITS ---
PROCEDURE INFORMATION: Exam: XR Chest Exam date and time: 04/07/2021 12:07 AM Age: 40 years old Clinical indication: Pain; Chest pressure; Additional info: Chest pain TECHNIQUE: Imaging protocol: XR of the chest. Views: 1 view. COMPARISON: CR XR chest 1V portable [id number] 03/20/2020 3:04 AM FINDINGS: Lungs: Unremarkable. No consolidation. Pleural spaces: Unremarkable. No pleural effusion. No pneumothorax. Heart/Mediastinum: Unremarkable. No cardiomegaly. Bones/joints: Unremarkable. XR/XR chest 1V portable [id number] IMPRESSION: No acute disease.
--- NOTE | 2021-04-07 00:07 | ED_ITS ---
HPI - Chest Pain General: Chief Complaint: Chest Pain Stated Complaint: CP Time Seen by Provider: 04/07/21 00:06 History of Present Illness: HPI narrative: 40-year-old female comes in today with some complaints of chest discomfort. Patient reports that she laid down in bed and started having some burning discomfort that went up into her chest to her left shoulder and up into her neck. Patient says reported since arriving to the ER her pain has resolved. Patient appears well. Patient appears no acute distress. Patient is recently finished isolation for her Covid 19. On exam patient is alert oriented. Patient does have a history of reflux, hypertension, anxiety. Review of Systems General: Reports: 10 or more systems reviewed and unremarkable except in HPI and below Card: Reports: chest pain PFSH ED PFSH: Medical History Aftercare following surgery of the genitourinary system Kidney stones Moderate obstructive sleep apnea Surgical History H/O laparoscopy 11/07/2020- diagnostic laparoscopy performed by Dr. Husain at [facility] Tubal ligation status (~2005) Family History Mother Cancer Diabetes Grandmother Cancer Family/Other Diabetes Aunt Denies family history of CAD (coronary artery disease) Clotting disorder Dementia Hyperlipidemia Psychiatric illness Chronic kidney disease (CKD) Anesthesia complication Bleeding disorder Family history of premature coronary artery disease Lung disease Hypertension Social History Smoking and tobacco status: former smoker Alcohol intake: current Alcohol intake frequency: holidays/special occasions only Alcohol type: hard liquor Female Reproductive History: Date of last menstrual period: 03/10/21 Physical Exam Const: COMMON NORMALS: no acute distress and patient oriented x3 GENERAL APPEARANCE: cooperative HENMT: COMMON NORMALS: normocephalic and Normal external nose present HEAD & SCALP: normal to inspection and normocephalic NOSE: Normal external nose present MOUTH: Normal oral and palatal mucosa present THROAT: posterior oropharynx normal Eye: GENERAL EYE: appearance normal, both eyes and all related structures Neck/C-Spine: COMMON NORMALS: full ROM Lymph: LYMPHATIC: no lymphadenopathy noted Chest: COMMONS NORMALS: normal inspection of the chest Resp: COMMON NORMALS: normal respiratory effort and clear to auscultation bilaterally EFFORT & INSPECTION: Yes able to speak in complete sentences AUSCULTATION: clear to auscultation bilaterally Cardio: COMMON NORMALS: regular rate and regular rhythm RATE: regular rate RHYTHM: regular rhythm GI: COMMON NORMALS: non-tender : COMMON NORMALS: Yes no CVA tenderness BLADDER/KIDNEY EXAM: Yes no CVA tenderness Back/Pelvis: COMMON NORMALS: no CVA tenderness and thoracic and lumbar spine normal to inspection Extremity: COMMON NORMALS: normal to inspection Neuro: COMMON NORMALS: patient oriented x3 and moves all extremities Psych: COMMON NORMALS: mental status grossly normal and cooperative Skin: COMMON NORMALS: no rashes or lesions noted GENERAL SKIN EXAM: no rashes or lesions noted Course Vital Signs: Vital signs: Vital Signs Temperature 97.6 F 04/06/21 21:29 Pulse Rate 67 04/07/21 00:05 Respiratory Rate 18 04/07/21 00:05 Blood Pressure 107/54 04/07/21 00:05 Pulse Oximetry 98 04/07/21 00:05 MDM - Chest Pain MDM Narrative: Medical decision making narrative: Patient comes in tonight with complaints of chest discomfort. On exam patient appears well. Heart rates regular in the 60s. Skin is warm and dry. Vital signs otherwise are normal. Abdomen soft and nontender. Differential diagnosis includes GERD, hiatal hernia, ACS, anxiety. Chest x-ray was normal. Laboratory values were unremarkable. D-dimer did come back at 0.6 but her EKG shows a normal sinus rhythm without any cardiac strain. Troponin was negative. I believe the patient probably has some reflux that when she laid down tonight aggravated and caused her discomfort. I do not think patient has a PE or ACS. Patient has improved since arriving to the ER without any treatment. Patient has been able to rest and sleep in the ER. Recommended patient watch her diet and avoid eating about 2 h before bedtime may even consider elevating the head of the bed at night. Recommend the patient follow-up with primary care and for further discussion there may be consideration of other treatment or evaluation options. Lab Data: Labs: Lab Results 04/07/21 04/07/21 04/07/21 Range/Units 00:30 00:30 00:30 WBC 8.3 (4.0-10.0) 10^3/ uL RBC 4.90 (4.1-5.3) 10^6/u L Hgb 12.0 (11.5-15.3) g/dL Hct 37.9 (37.0-47.0) % MCV 77.3 L (81-99) fl MCH 24.5 L (28.0-34.0) pg MCHC 31.7 (30.0-36.0) g/dL RDW 16.8 H (12.1-15.1) % Plt Count 356 (130-400) 10^3/c mm MPV 10.2 (7.4-10.4) fL Neut % (Auto) 62.9 % Lymph % (Auto) 29.1 % Sullivan % (Auto) 4.1 % Eos % (Auto) 3.0 % Baso % (Auto) 0.5 % Neut # (Auto) 5.19 (1.8-7.7) 10^3/u L Lymph # (Auto) 2.4 (0.8-4.8) 10^3/u L Sullivan # (Auto) 0.3 (0.2-0.9) 10^3/u L Eos # (Auto) 0.3 (0.0-0.8) 10^3/u L Baso # (Auto) 0.0 (0.0-0.1) 10^3/u L Nucleated RBC % (a uto) 0 % Nucleated RBCs # 0.0 /100WBC D-Dimer 0.62 H (0-0.59) ug/mIFE U Sodium 138 (136-145) mmol/L Potassium 4.5 (3.5-5.1) mmol/L Chloride 104 (98-107) mmol/L Carbon Dioxide 25 (22-29) mmol/L Anion Gap 13.5 (5-19) BUN 8 (6-20) mg/dL Creatinine 0.7 (0.5-0.9) mg/dL GFR Calculation 93.6 (90-130) mL/min Glucose 95 (65-115) mg/dL Calculated Osmolal ity 284 L (285-295) mOsm/k g Calcium 9.7 (8.5-10.5) mg/dL Total Bilirubin 0.2 (0.15-1.2) mg/dL AST 15 (0-32) U/L ALT 15 (0-33) U/L Alkaline Phosphata se 79 (35-105) IU/L Troponin T Gen 5 n g/L (0-10) ng/L Total Protein 6.9 (6.6-8.7) g/dL Albumin 4.0 (3.5-5.2) g/dL Globulin 2.9 (1.3-4.6) g/dL 04/07/21 Range/Units 00:30 WBC (4.0-10.0) 10^3/ uL RBC (4.1-5.3) 10^6/u L Hgb (11.5-15.3) g/dL Hct (37.0-47.0) % MCV (81-99) fl MCH (28.0-34.0) pg MCHC (30.0-36.0) g/dL RDW (12.1-15.1) % Plt Count (130-400) 10^3/c mm MPV (7.4-10.4) fL Neut % (Auto) % Lymph % (Auto) % Sullivan % (Auto) % Eos % (Auto) % Baso % (Auto) % Neut # (Auto) (1.8-7.7) 10^3/u L Lymph # (Auto) (0.8-4.8) 10^3/u L Sullivan # (Auto) (0.2-0.9) 10^3/u L Eos # (Auto) (0.0-0.8) 10^3/u L Baso # (Auto) (0.0-0.1) 10^3/u L Nucleated RBC % (a uto) % Nucleated RBCs # /100WBC D-Dimer (0-0.59) ug/mIFE U Sodium (136-145) mmol/L Potassium (3.5-5.1) mmol/L Chloride (98-107) mmol/L Carbon Dioxide (22-29) mmol/L Anion Gap (5-19) BUN (6-20) mg/dL Creatinine (0.5-0.9) mg/dL GFR Calculation (90-130) mL/min Glucose (65-115) mg/dL Calculated Osmolal ity (285-295) mOsm/k g Calcium (8.5-10.5) mg/dL Total Bilirubin (0.15-1.2) mg/dL AST (0-32) U/L ALT (0-33) U/L Alkaline Phosphata se (35-105) IU/L Troponin T Gen 5 n g/L 6 (0-10) ng/L Total Protein (6.6-8.7) g/dL Albumin (3.5-5.2) g/dL Globulin (1.3-4.6) g/dL Discharge Plan Discharge Patient Disposition: Home Clinical Impression: Atypical chest pain Condition: Stable Prescriptions: No Action Women's Daily Formula 27-0.4 mg tablet 1 tab PO DAILY RF: 0 docusate sodium 100 mg capsule 100 mg PO DAILY RF: 0 cholecalciferol (vitamin D3) 1,000 units PO .daily RF: 0 hydroxyzine HCl 25 mg tablet 25 mg PO QID PRN (Reason: Anxiety) RF: 0 escitalopram oxalate [Lexapro] 10 mg tablet 20 mg PO DAILY RF: 0 lisinopril 10 mg tablet 20 mg PO DAILY RF: 0 omega-3 fatty acids 1,000 mg capsule 1,000 mg PO DAILY RF: 0 Protonix 40 mg tablet,delayed release (DR/EC) 40 mg PO DAILY 30 Days Qty: 30 RF: 2 Vitamin B-12 See Rx Instructions .ROUTE .COMPLEX RF: 0 Discharge Orders: Discharge ED (Routine); Ordered 04/07/21 Ordered By: Maurice Apple Discharge Diet: Usual diet Discharge Activity: Increase activity as tolerated Patient Instructions: Chest Pain (ED), Opioid Safety Activity Restrictions/Additional Instructions: Home and rest. Drink plenty of fluids. Follow-up with primary care for further instructions. Healthy diet and activity. Avoid eating but about 2 h before bedtime as this may cause gastric discomfort and reflux. Return to the ER as needed for worsening symptoms or new concerns. Coding Level of Care Code ED Broadcasting Equipment Mechanic for Mulu Corcoran
[2021-04-07 00:43] LABS: Basophils % 0.5 %; Eosinophils # 0.3 10^3/uL (0.0-0.8); Hematocrit 37.9 % (37.0-47.0); Lymphocytes # 2.4 10^3/uL (0.8-4.8); Lymphocytes % 29.1 %; Mean Corpuscular HGB Conc 31.7 g/dL (30.0-36.0); Mean Corpuscular Hemoglobin 24.5 pg (28.0-34.0); Mean Corpuscular Volume 77.3 fl (81-99); Mean Platelet Volume 10.2 fL (7.4-10.4); Monocytes # 0.3 10^3/uL (0.2-0.9); Monocytes % 4.1 %; Neutrophils # 5.19 10^3/uL (1.8-7.7); Neutrophils % 62.9 %; Nucleated Red Blood Cells % 0 %; Platelet Count 356 10^3/cmm (130-400); Red Cell Distribution Width 16.8 % (12.1-15.1); White Blood Count 8.3 10^3/uL (4.0-10.0)
[2021-04-07 01:02] LABS: Troponin T (5th) Once 6 ng/L (0-10)
[2021-04-07 01:06] LABS: Alanine Aminotransferase 15 U/L (0-33); Alkaline Phosphatase 79 IU/L (35-105); Anion Gap 13.5 (5-19); Aspartate Amino Transferase 15 U/L (0-32); Blood Urea Nitrogen 8 mg/dL (6-20); Calcium 9.7 mg/dL (8.5-10.5); Carbon Dioxide 25 mmol/L (22-29); Chloride 104 mmol/L (98-107); Creatinine Clr Calc Pharmacy 152.5328; Globulin 2.9 g/dL (1.3-4.6); Glomerular Filtration Rate 93.6 mL/min (90-130); Glucose 95 mg/dL (65-115); Osmolality Calculated 284 mOsm/kg (285-295); Potassium 4.5 mmol/L (3.5-5.1); Sodium 138 mmol/L (136-145); Total Bilirubin 0.2 mg/dL (0.15-1.2); Total Protein 6.9 g/dL (6.6-8.7)
[2021-04-07 01:10] LABS: D Dimer 0.62 ug/mIFEU (0-0.59)
--- NOTE | 2021-04-07 01:26 | ECG_ITS ---
[facility] Test Date: 2021-04-07 Pat Name: Awa Morrell Department: Room: Gender: Female Biochemist: : 1980 Requested By: Maurice Yo Order Number: [id number] Zohaib MD: Carl Rhoades M.D. Measurements Intervals [place] Rate: 64 P: 36 MN: 153 QRS: 44 QRSD: 96 T: 28 QT: 398 QTc: 413 Interpretive Statements SINUS RHYTHM Compared to ECG 03/20/2020 02:54:48 Sinus tachycardia no longer present Electronically Signed On 04-07-2021 19:47:35 CDT by Carl Rhoades M.D. [id number]
[2021-04-07 02:01] VITALS: BP 127/88; PULSE 62; RESP 18; TEMP 36.7; O2SAT 98
== END 2021-04-07 02:00 | disposition home or self-care (01) ==
PROVIDERS: Emergency Provider Nurse Practitioner Family
DX: R07.89 Other chest pain (principal); K21.9 Gastro-esophageal reflux disease without esophagitis; I10 Essential (primary) hypertension; Z87.891 Personal history of nicotine dependence; Z86.16 Personal history of COVID-19
CPT/HCPCS: 71045; 80053; 84484; 85025; 85378; 93005; 99283

== ENCOUNTER 2021-04-08 08:28 | Outpatient (CLI) | payer BC, SELFPAY ==
[2021-04-08 09:31] LABS: Calcium 9.8 mg/dL (8.5-10.5)
[2021-04-08 09:39] LABS: 25 Hydroxy Vitamin D 21 ng/mL (30-100)
[2021-04-08 10:39] LABS: Parathyroid Hormone 56.3 pg/mL (15-65)
== END 2021-04-08 08:29 | disposition home or self-care (01) ==
LOC: LAB 08:30
PROVIDERS: Visit Provider Internal Medicine
DX: E55.9 Vitamin D deficiency, unspecified (principal); E83.52 Hypercalcemia
CPT/HCPCS: 36415; 82306; 82310; 83970

== ENCOUNTER 2021-06-02 11:48 | Observation (INO) | payer BC, SELFPAY ==
[2021-06-02 12:05] VITALS: BP 138/83; PULSE 105; RESP 17; TEMP 37.6; O2SAT 99; BMI 47.0
--- NOTE | 2021-06-02 13:19 | CTR_ITS ---
PROCEDURE INFORMATION: Exam: CT Abdomen And Pelvis With Contrast Exam date and time: 06/02/2021 1:19 PM Age: 40 years old Clinical indication: Abdominal pain; Generalized; Additional info: Abdominal pain, n/v/d TECHNIQUE: Imaging protocol: Computed tomography of the abdomen and pelvis with contrast. Radiation optimization: All CT scans at this facility use at least one of these dose optimization techniques: automated exposure control; mA and/or kV adjustment per patient size (includes targeted exams where dose is matched to clinical indication); or iterative reconstruction. Contrast material: OMNI 300; Contrast volume: 95 ml; Contrast route: INTRAVENOUS (IV); COMPARISON: US pelvic with transvaginal 11/15/2019 3:27 PM RADIATION DOSE METRICS: Total DLP (mGy-cm): 1857.51 FINDINGS: Liver: Hepatic steatosis. Right hepatic lobe low-density lesion measuring 14 mm in size with some internal hyperdensity. Gallbladder and bile ducts: Normal. No calcified stones. No ductal dilation. Pancreas: Normal. No ductal dilation. Spleen: Normal. No splenomegaly. Adrenal glands: Normal. No mass. Kidneys and ureters: Bilateral benign renal cysts, negative for follow-up advised. Right kidney nonobstructing renal calyceal stone. Stomach and bowel: Diffuse colonic wall thickening suggestive of a colitis. Appendix: No evidence of appendicitis. Intraperitoneal space: Unremarkable. No free air. No significant fluid collection. Vasculature: Unremarkable. No abdominal aortic aneurysm. Lymph nodes: Scattered prominent nonspecific lymph nodes throughout the mesentery. Urinary bladder: Unremarkable as visualized. Reproductive: Unremarkable as visualized. Bones/joints: Unremarkable. No acute fracture. Soft tissues: Unremarkable. Other findings: Small amount of nonspecific fluid in the pelvis. CT/CT abdomen pelvis w con* [id number] IMPRESSION: 1. Diffuse colonic wall thickening suggestive of a colitis. 2. Small amount of nonspecific fluid in the pelvis. 3. Hepatic steatosis. 4. Right hepatic lobe low-density lesion measuring 14 mm in size with some internal hyperdensity. Further evaluation with non-emergent liver MRI is recommended. 5. Bilateral benign renal cysts, negative for follow-up advised. 6. Right kidney nonobstructing renal calyceal stone. 7. Scattered prominent nonspecific lymph nodes throughout the mesentery. Radiation Dose CTDIVOL = (mGy): DLP = 1857.51 (mGy-cm)
[2021-06-02] MEDS: ondansetron 2 mg/ML SDV 2 mL 4 MG IVP (14:31)
[2021-06-02] MEDS: sodium chloride 0.9% 1,000 ML 999 ML IV (14:31)
[2021-06-02 14:45] LABS: Basophils # 0.1 10^3/uL (0.0-0.1); Basophils % 0.4 %; Eosinophils % 0.2 %; Hematocrit 40.1 % (37.0-47.0); Hemoglobin 12.7 g/dL (11.5-15.3); Lymphocytes % 6.5 %; Mean Corpuscular HGB Conc 31.7 g/dL (30.0-36.0); Mean Corpuscular Hemoglobin 24.4 pg (28.0-34.0); Mean Platelet Volume 10.2 fL (7.4-10.4); Monocytes # 0.6 10^3/uL (0.2-0.9); Monocytes % 4.1 %; Neutrophils % 88.4 %; Nucleated Red Blood Cells % 0 %; Platelet Count 412 10^3/cmm (130-400); Red Blood Count 5.21 10^6/uL (4.1-5.3); White Blood Count 15.1 10^3/uL (4.0-10.0)
[2021-06-02 15:03] LABS: Alanine Aminotransferase 10 U/L (0-33); Albumin Level 4.3 g/dL (3.5-5.2); Alkaline Phosphatase 77 IU/L (35-105); Anion Gap 17.8 (5-19); Aspartate Amino Transferase 10 U/L (0-32); Blood Urea Nitrogen 9 mg/dL (6-20); C Reactive Protein 117.4 mg/L (0.0-4.9); Calcium 9.6 mg/dL (8.5-10.5); Carbon Dioxide 22 mmol/L (22-29); Chloride 102 mmol/L (98-107); Creatinine Clr Calc Pharmacy 137.5628; Globulin 3.2 g/dL (1.3-4.6); Glomerular Filtration Rate 80.3 mL/min (90-130); Glucose 92 mg/dL (65-115); Lipase 25 U/L (13-60); Osmolality Calculated 284 mOsm/kg (285-295); Potassium 3.8 mmol/L (3.5-5.1); Sodium 138 mmol/L (136-145); Total Bilirubin 0.5 mg/dL (0.15-1.2); Total Protein 7.5 g/dL (6.6-8.7)
[2021-06-02 15:04] LABS: Add Urine Culture? No; Add Urine Microscopic? YES; Amorphous Sediment Urine 3+ /hpf; Bacteria Urine 1+ /hpf; Bilirubin Urine 1+ (Negative); Blood Urine 3+ (Negative); Glucose Urine UA Norm (Normal); Ketones Urine 1+ (Negative); Leukocyte Esterase Urine Negative (Negative); Mucus Urine TRACE /hpf; Nitrate Urine Negative (Negative); Protein Urine Neg (Negative); RBC Urine 0-4 /hpf (0-2); Specific Gravity, Urine 1.025 (1.005-1.030); Urine Appearance Cloudy (CLEAR); Urine Color Yellow (Yellow); Urobilinogen Urine 1 mg/dL (Negative); pH Urine 5 (5-7)
[2021-06-02 15:43] LABS: Influenza A by IFA Negative (Negative); Influenza B by IFA Negative (Negative); SARS Covid-2 Antigen Negative (Negative)
[2021-06-02] MEDS: iohexol 300 mg/mL 100 mL Btl IV (15:55)
[2021-06-02] MEDS: hyoscyamine ODT 0.125 mg Tablet 0.25 MG PO (16:49)
--- NOTE | 2021-06-02 17:00 | W.ED.NAVMDI ---
HPI - Nausea/Vomiting/Diarrhea General: Chief complaint: Nausea/Vomiting/Diarrhea Stated complaint: N/V/D, ALL OVER ABD PAIN, BEGAN YESTERDAY Time Seen by Provider: 06/02/21 13:15 Source: patient Mode of arrival: ambulatory Limitations: no limitations History of Present Illness: HPI Narrative: 40-year-old female complaining of generalized abdominal pain, cramping, and profuse diarrhea since last night. Initially diarrhea was green, foamy, then transitioned to bloody few hours ago. For about a week prior to onset, she noticed some general epigastric discomfort and bloating, indigestion. She does have a family member that was sick with some sort of gastrointestinal infection about a week ago. No recent antibiotics No history of inflammatory bowel disease No recent travel or camping. MD elicited complaint: nausea, vomiting, diarrhea and abdominal pain Onset (ago): day(s) Description of vomiting: watery, bloody and continuous Description of diarrhea: blood and watery Associated nausea: Yes Associated abdominal pain: Yes Location of pain: Diffuse Radiation: diffuse Pain consistency: colicky Severity: severe Quality: cramping, stabbing and aching Exacerbating factors: eating and bowel movement Associated symtoms: Reports bloating, diaphoresis, dizziness, fatigue, fevers/chills, anorexia, malaise, myalgias and nausea; Denies change in vision, chest pain, dysuria, headache(s), palpitations, rash or short of breath Treatment prior to arrival: none Review of Systems General: Reports: 10 or more systems reviewed and unremarkable except in HPI and below Const: Reports: chills, body aches, change in appetite, fatigue, malaise and diaphoresis Eyes: Denies: change in vision, blurry vision or photophobia ENMT: Denies: throat pain, enlarged tonsils or odynophagia Card: Denies: chest pain, palpitations or irregular heart rhythm Resp: Denies: dyspnea, productive cough or wheezing GI: Reports: abdominal pain, nausea, bloating, GI cramping, rectal pain, change in stool character, hematochezia and mucus in stool : Reports: flank pain and oliguria; Denies: dysuria Musc: Denies: neck pain, back pain, extremity pain or extremity swelling Skin/Breast: Denies: rash, pruritus or erythema Neuro: Reports: dizziness; Denies: headache(s), numbness in extremities, weakness in extremities, difficulty walking, vertigo or confusion Endo: Denies: polyuria or polydipsia PFSH ED PFSH: Medical History Aftercare following surgery of the genitourinary system Kidney stones Moderate obstructive sleep apnea Surgical History H/O laparoscopy 11/07/2020- diagnostic laparoscopy performed by Dr. Husain at [facility] H/O lithotripsy x2 Tubal ligation status (~2005) Family History Mother Cancer Diabetes Grandmother Cancer Family/Other Diabetes Aunt Denies family history of CAD (coronary artery disease) Clotting disorder Dementia Hyperlipidemia Psychiatric illness Chronic kidney disease (CKD) Anesthesia complication Bleeding disorder Family history of premature coronary artery disease Lung disease Hypertension Social History Smoking and tobacco status: current every day smoker e-cigarettes E-Cigarette Details: vaporizer device and with nicotine E-cig/vape details: uses daily, equivalent to 1 pack per day Alcohol intake: current Alcohol intake frequency: holidays/special occasions only Alcohol type: hard liquor Female Reproductive History: Date of last menstrual period: 03/10/21 Physical Exam Const: COMMON NORMALS: no acute distress and alert GENERAL APPEARANCE: cooperative, comfortable and well kempt; not in distress, not lethargic and not ill appearing NUTRITIONAL APPEARANCE: overweight ORIENTATION/CONSCIOUSNESS: Yes awake, Yes oriented to person, Yes oriented to place and Yes oriented to time; not lethargic HENMT: COMMON NORMALS: normocephalic and atraumatic HEAD & SCALP: normocephalic and atraumatic FACE & SINUS: normal facial exam and face symmetric Eye: COMMON NORMALS: Equal, round and reactive pupils present, EOMs intact bilaterally, conjunctivae normal and no scleral icterus CONJUNCTIVA: Yes conjunctivae normal PUPIL: Yes Equal, round and reactive pupils present Chest: COMMONS NORMALS: normal inspection of the chest Resp: COMMON NORMALS: normal respiratory effort, No retractions and No use of accessory muscles EFFORT & INSPECTION: Yes able to speak in complete sentences GI: COMMON NORMALS: Soft to palpation INSPECTION: No Abdominal wall edema, No Anasarca and No abdominal distension PALPATION: Yes Soft to palpation, Yes Tenderness to palpation present (GI) (diffuse, mild), No Guarding due to palpation present (GI), No Hernia present and No Ascites present : COMMON NORMALS: Yes no CVA tenderness BLADDER/KIDNEY EXAM: Yes no CVA tenderness EXTERNAL FEMALE EXAM: No Hernia present Back/Pelvis: COMMON NORMALS: no CVA tenderness Neuro: SENSORIUM/ORIENTATION: Yes alert, Yes oriented to person, Yes oriented to place, Yes oriented to time and No lethargic Psych: APPEARANCE: Yes well kempt Skin: COMMON NORMALS: no rashes or lesions noted, no wounds, turgor normal and no jaundice GENERAL SKIN EXAM: no rashes or lesions noted and turgor normal Course Vital Signs: Vital signs: Vital Signs Temperature 99.7 F H 06/02/21 12:05 Pulse Rate 110 H 06/02/21 18:38 Respiratory Rate 18 06/02/21 18:38 Blood Pressure 160/107 06/02/21 18:38 Pulse Oximetry 97 06/02/21 18:38 MDM - Nausea/Vomiting/Diarrhea MDM Narrative: Medical decision making narrative: 40-year-old female with acute onset watery diarrhea, abdominal cramping, nausea, and vomiting last night. Now with boody/mucous stool. Relatively well-appearing on exam, not in any acute distress. No peritoneal signs on abdominal exam. Diffuse colitis on CT with small FF in the pelvis.mesenteric adenopathy. Non obstructive kidney stones on the Right. WBC 15, CRP 117 Normal lipase, UA does not suggest acute infection. Covid negative. GI panel pending. Patient agrees to be admitted Discussed with Dr Kline , hospitalist, he accepts. Will start empiric treatment with Zosyn pending micro results. Lab Data: Labs: Lab Results 06/02/21 06/02/21 06/02/21 14:20 14:30 14:30 WBC 15.1 10^3/uL H 10 ^3/uL (4.0-10.0) RBC 5.21 10^6/uL 10^6 /uL (4.1-5.3) Hgb 12.7 g/dL g/dL (11.5-15.3) Hct 40.1 % % (37.0-47.0) MCV 77.0 fl L fl (81-99) MCH 24.4 pg L pg (28.0-34.0) MCHC 31.7 g/dL g/dL (30.0-36.0) RDW 19.0 % H % (12.1-15.1) Plt Count 412 10^3/cmm H 10 ^3/cmm (130-400) MPV 10.2 fL fL (7.4-10.4) Neut % (Auto) 88.4 % % Lymph % (Auto) 6.5 % % [place] % (Auto) 4.1 % % Eos % (Auto) 0.2 % % Baso % (Auto) 0.4 % % Neut # (Auto) 13.30 10^3/uL H 1 0^3/uL (1.8-7.7) Lymph # (Auto) 1.0 10^3/uL 10^3/ uL (0.8-4.8) [place] # (Auto) 0.6 10^3/uL 10^3/ uL (0.2-0.9) Eos # (Auto) 0.0 10^3/uL 10^3/ uL (0.0-0.8) Baso # (Auto) 0.1 10^3/uL 10^3/ uL (0.0-0.1) Nucleated RBC % (a uto) 0 % % Nucleated RBCs # 0.0 /100WBC /100W BC Sodium 138 mmol/L mmol/L (136-145) Potassium 3.8 mmol/L mmol/L (3.5-5.1) Chloride 102 mmol/L mmol/L (98-107) Carbon Dioxide 22 mmol/L mmol/L (22-29) Anion Gap 17.8 (5-19) BUN 9 mg/dL mg/dL (6-20) Creatinine 0.8 mg/dL mg/dL (0.5-0.9) GFR Calculation 80.3 mL/min L mL/ min (90-130) Glucose 92 mg/dL mg/dL (65-115) Calculated Osmolal ity 284 mOsm/kg L mOs m/kg (285-295) Lactate Calcium 9.6 mg/dL mg/dL (8.5-10.5) Total Bilirubin 0.5 mg/dL mg/dL (0.15-1.2) AST 10 U/L U/L (0-32) ALT 10 U/L U/L (0-33) Alkaline Phosphata se 77 IU/L IU/L (35-105) C-Reactive Protein 117.4 mg/L H mg/L (0.0-4.9) Total Protein 7.5 g/dL g/dL (6.6-8.7) Albumin 4.3 g/dL g/dL (3.5-5.2) Globulin 3.2 g/dL g/dL (1.3-4.6) Lipase 25 U/L U/L (13-60) Urine Color Yellow (Yellow) Urine Appearance Cloudy (CLEAR) Urine pH 5 (5-7) Ur Specific Gravit y 1.025 (1.005-1.030) Urine Protein Neg (Negative) Urine Glucose (UA) Norm (Normal) Urine Ketones 1+ H (Negative) Urine Blood 3+ H (Negative) Urine Nitrate Negative (Negative) Urine Bilirubin 1+ H (Negative) Urine Urobilinogen 1 mg/dL H mg/dL (Negative) Ur Leukocyte Susi ase Negative (Negative) Urine RBC 0-4 /hpf H /hpf (0-2) Urine WBC None /hpf /hpf (0-5) Ur Squamous Epith Cells 5-10 /hpf H /hpf (0-5) Amorphous Sediment 3+ /hpf /hpf Urine Bacteria 1+ /hpf H /hpf (NONE) Urine Mucus Trace /hpf /hpf Influenza Type A A g Influenza Type B A g SARS-CoV-2 Ag (Rap id) 06/02/21 06/02/21 06/02/21 14:30 14:30 14:30 WBC RBC Hgb Hct MCV MCH MCHC RDW Plt Count MPV Neut % (Auto) Lymph % (Auto) [place] % (Auto) Eos % (Auto) Baso % (Auto) Neut # (Auto) Lymph # (Auto) [place] # (Auto) Eos # (Auto) Baso # (Auto) Nucleated RBC % (a uto) Nucleated RBCs # Sodium Potassium Chloride Carbon Dioxide Anion Gap BUN Creatinine GFR Calculation Glucose Calculated Osmolal ity Lactate 1.5 mmol/L mmol/L (0.5-2.2) Calcium Total Bilirubin AST ALT Alkaline Phosphata se C-Reactive Protein Total Protein Albumin Globulin Lipase Urine Color Urine Appearance Urine pH Ur Specific Gravit y Urine Protein Urine Glucose (UA) Urine Ketones Urine Blood Urine Nitrate Urine Bilirubin Urine Urobilinogen Ur Leukocyte Susi ase Urine RBC Urine WBC Ur Squamous Epith Cells Amorphous Sediment Urine Bacteria Urine Mucus Influenza Type A A g Negative (Negative) Influenza Type B A g Negative (Negative) SARS-CoV-2 Ag (Rap id) Negative (Negative) Discharge Plan Discharge Patient Disposition: Admitted As Inpatient Clinical Impression: Dehydration, Colitis presumed infectious, Passage of bloody stools Condition: Stable Coding Level of Care Code ED Fill Plant Operator for Chg Fwd Exam Comprehensive
[2021-06-02 17:26] VITALS: RESP 19; O2SAT 96
[2021-06-02] MEDS: HYDROmorphone 1 mg/mL INJ 1 mL IVP (17:26)
[2021-06-02] MEDS: sodium chloride 0.9% 1,000 ML 30 ML IV (17:27)
[2021-06-02 17:30] VITALS: BP 152/88; PULSE 102; RESP 18; O2SAT 97
[2021-06-02] MEDS: LORazepam 2 mg/mL INJ 1 mL 1 MG IVP (18:33)
[2021-06-02 18:34] LABS: Lactate (Lactic Acid level) 1.5 mmol/L (0.5-2.2)
[2021-06-02] MEDS: nicotine 21 mg Patch 1 PATCH TRANSDERMA (18:34)
[2021-06-02] MEDS: piperacillin-tazobactam 4.5 GM in sodium chloride 0.9% (plus) 50 ML IV (18:35)
[2021-06-02 18:38] VITALS: BP 160/107; PULSE 110; RESP 18; O2SAT 97
--- NOTE | 2021-06-02 18:59 | PM.HP ---
Providers/Chief Complaint Primary Care Provider: [facility] ([facility]) Chief Complaint: N/V/D, ALL OVER ABD PAIN, BEGAN YESTERDAY History of Present Illness Awa Morrell is a 40 year old female with past medical history of hypertension, bariatric surgery presents to the ER today with diarrhea and abdominal pain is getting worse over last 7 days. Patient states bowel movements are usually green in color now but started with being black a week ago. Complaining of pain generalized in her belly more so in right lower quadrant, sharp knifelike getting worse for last 3 days. States she is not really hungry. Denies any sick contacts anybody in the family having similar symptoms. Does give history of eating out at [employer] a week ago before the symptoms started. Review of Systems General: Reports: 10 or more systems reviewed and unremarkable except in HPI and below Const: Denies: fever(s), chills, body aches, change in appetite, change in weight, malaise, night sweats, diaphoresis, change in sleep pattern, daytime sleepiness or snoring Eyes: Denies: change in vision, blurry vision, photophobia, eye discomfort or eye discharge ENMT: Denies: throat pain, enlarged tonsils, hoarseness, mouth pain, oral sores, dry mouth, tinnitus, nasal congestion or post nasal drip Card: Denies: chest pain, palpitations, irregular heart rhythm, edema, swelling of feet/ankles, lightheadedness, syncope, pre-syncope, dyspnea on exertion, orthopnea, leg pain with exertion or acrocyanosis Resp: Denies: dyspnea, productive cough, non-productive cough, wheezing, stridor, pain on inspiration, change in phlegm color, hemoptysis or chest congestion GI: Denies: abdominal pain, nausea, vomiting, hematemesis, coffee ground emesis, dysphagia, heartburn, diarrhea, constipation, bloating, GI cramping, change in bowel habits, pain on defecation, hematochezia or melena : Denies: flank pain, dysuria, urinary frequency, urinary urgency, urinary hesitancy, nocturia or hematuria Musc: Denies: neck pain, back pain, extremity pain, joint pain, joint swelling, joint redness, joint stiffness or limited range of motion Neuro: Denies: headache(s), numbness in extremities, weakness in extremities, sensory changes, lack of coordination, difficulty walking, frequent falls, dizziness, vertigo, confusion, Slurred speech present, difficulty communicating thoughts or seizure-like activity Psych: Denies: anxiety, depression, mood swings, panic attacks, hopelessness or irritability Endo: Denies: polyuria, polydipsia, tired all the time, cold intolerance, excessive sweating, flushing or heat intolerance Carlos/Lymph: Denies: easy bruising or easy bleeding All/Imm: Denies: tongue swelling, facial swelling or acute wheezing Medications/Allergies Home Medications Medication Instructions Recorded Confirmed Last Taken Type omega-3 fatty acids 1,000 mg 1,000 mg PO DAILY 09/11/20 06/02/21 05/31/21 History capsule cholecalciferol (vitamin D3) 1,000 units PO DAILY 11/05/20 06/02/21 05/31/21 History docusate sodium 100 mg capsule 100 mg PO DAILY 11/05/20 06/02/21 06/01/21 History hydroxyzine HCl 25 mg tablet 25 mg PO QID PRN 11/05/20 06/02/21 03/04/21 History escitalopram oxalate 10 mg tablet 20 mg PO DAILY tab 11/19/20 06/02/21 06/01/21 History pantoprazole [Protonix] 40 mg PO DAILY 30 Days #30 tab 03/05/21 06/02/21 05/31/21 Rx lisinopril 40 mg tablet 40 mg PO DAILY #90 tab 05/14/21 06/02/21 05/31/21 Rx nitroglycerin 0.4 mg sublingual 0.4 mg SUBLINGUAL Q5M PRN tab 05/14/21 06/02/21 Unknown History tablet Allergies Allergy/AdvReac Type Severity Reaction Status Date / Time No Known Allergies Allergy Verified 05/14/21 08:20 PFSH Acute PFSH: Medical History (Updated 06/02/21 @ 19:18 by Jeremías Ashley MD) Anxiety Atypical chest pain The EKG done on 04/07/2021 revealed a sinus rhythm with a normal ST Ts. Benign essential HTN Dysmenorrhea Gastritis GERD (gastroesophageal reflux disease) Hypercalcemia Kidney stones Moderate obstructive sleep apnea Morbid obesity with BMI of 45.0-49.9, adult Vapes non-nicotine containing substance Vitamin D deficiency Surgical History (Updated 06/02/21 @ 19:18 by Jeremías Ashley MD) H/O laparoscopy 11/07/2020- diagnostic laparoscopy performed by Dr. Husain at [facility] H/O lithotripsy x2 History of tonsillectomy and adenoidectomy Tubal ligation status (~2005) Family History Mother Cancer Diabetes Grandmother Cancer Family/Other Diabetes Aunt Denies family history of CAD (coronary artery disease) Clotting disorder Dementia Hyperlipidemia Psychiatric illness Chronic kidney disease (CKD) Anesthesia complication Bleeding disorder Family history of premature coronary artery disease Lung disease Hypertension Social History (Updated 06/02/21 @ 19:19 by Jeremías Ashley MD) Smoking and tobacco status: current every day smoker e-cigarettes E-Cigarette Details: vaporizer device and with nicotine E-cig/vape details: uses daily, equivalent to 1 pack per day Alcohol intake: current Alcohol intake frequency: holidays/special occasions only Alcohol type: hard liquor Caregiver/support person: Yes Lives independently: Yes Household members: family Female Reproductive History: Date of last menstrual period: 03/10/21 Vitals/I&O/Wt Last Vital Signs Temp 99.7 F H 06/02/21 12:05 Pulse 110 H 06/02/21 18:38 Resp 18 06/02/21 18:38 BP 160/107 06/02/21 18:38 Pulse Ox 97 06/02/21 18:38 Weight last 48 hrs Weight 136.078 kg Physical Exam Narrative: EXAM NARRATIVE: General: No acute distress, AO x3 HEENT: PERRLA, pupils bilaterally equal and reactive Chest: Normal vesicular breath sounds, no added sounds, equal good air entry bilaterally CVS: S1-S2 regular, no murmurs, no tachycardia, no gallops, no rubs Abdomen: Soft, nontender, no organomegaly, bowel sounds present Neuro: No focal deficits, no facial deformity, AO x3, power 5/5 in all limbs Data : 06/03/21 05:15 06/03/21 05:15 Micro: Microbiology 06/02/21 17:07 C.difficile Toxin B Gene (PCR) - Final Stool A&P Assessment and plan (1) Colitis presumed infectious: Status: Acute (2) Dehydration: Status: Acute (3) Passage of bloody stools: Status: Acute (4) Benign essential HTN: Status: Acute Additional A&P Information Sepsis: 2/2 Colitis Criteria met with tachycardia and leukocytosis Colitis: Seen on CT Abd. Stool studies, Check Bcx, procal. Given bloody stool will get ESR and CRP Emperic IV Zosyn. Change as per Cx result. Famotidine 20 mg BID Zofran as needed D5-NS with 20 meq potassium @ 75 cc/hr Monitor electrolytes, magnesium and phosphorus HTN: Goal BP less than 140/90 mmhg C/w home dose of lisinopril. Check TIBC, B12, folate, TSH, A1c, lipid panel Full code SCDs Famotidine for PUD Cardiac diet Attestations Medical Necessity Statement*: >2MN for pancolitis Time Spent in Patient Care: Greater than 35 minutes (>than 50% of time spent in counselling and/or direct pt care on unit). Coding Level of Care Code Acute Personal Counselor for Chg Fwd Diagnoses Colitis presumed infectious K52.9 Dehydration E86.0 Passage of bloody stools K92.1 Benign essential HTN I10
[2021-06-02 19:24] LABS: HCG Qualitative Urine. Negative (Negative)
[2021-06-02 19:30] LABS: Thyroid Stimulating Hormone 1.65 uIU/mL (0.27-4.20)
[2021-06-02] MEDS: morphine 4 mg/mL SDV 1 mL 2 MG IVP (19:58)
--- NOTE | 2021-06-02 20:10 | PC.NURSE ---
REPORT ATTEMPTED, RN UNAVAILABLE, WILL CALL BACK.
[2021-06-02 20:32] VITALS: BP 131/82; PULSE 78; RESP 18; O2SAT 98
[2021-06-02 20:44] VITALS: BMI 47.0
[2021-06-02] MEDS: dextrose 5%-ns + KCl 20 20 MEQ/1,000 ML BAG 75 MEQ IV (21:27)
[2021-06-02 23:16] LABS: Iron 16 ug/dL (37-145); Percent Saturation 3.9 % (20-50); Total Iron Binding Capacity 404 mcg/dl; Unsaturated Iron Binding 388 ug/dL (112-347)
[2021-06-02 23:33] VITALS: BP 129/73; PULSE 102; RESP 18; TEMP 36.8; O2SAT 95
[2021-06-03] MEDS: piperacillin-tazobactam 3.375 GM in sodium chloride 0.9% (plus) 50 ML IV ×2 (02:29→10:18)
[2021-06-03 04:00] VITALS: BP 114/73; PULSE 90; RESP 18; TEMP 36.9; O2SAT 97
[2021-06-03 04:18] VITALS: RESP 18
[2021-06-03] MEDS: morphine 4 mg/mL SDV 1 mL 2 MG IVP ×2 (04:18→08:57)
[2021-06-03] MEDS: ondansetron 2 mg/ML SDV 2 mL 4 MG IVP (04:19)
[2021-06-03 04:54] VITALS: BMI 47.0
[2021-06-03 06:33] LABS: Basophils % 0.5 %; Eosinophils # 0.1 10^3/uL (0.0-0.8); Hematocrit 35.5 % (37.0-47.0); Hemoglobin 11.1 g/dL (11.5-15.3); Lymphocytes # 0.7 10^3/uL (0.8-4.8); Lymphocytes % 8.3 %; Mean Corpuscular HGB Conc 31.3 g/dL (30.0-36.0); Mean Corpuscular Hemoglobin 24.2 pg (28.0-34.0); Mean Corpuscular Volume 77.3 fl (81-99); Mean Platelet Volume 10.5 fL (7.4-10.4); Monocytes # 0.6 10^3/uL (0.2-0.9); Monocytes % 7.3 %; Neutrophils # 6.88 10^3/uL (1.8-7.7); Neutrophils % 82.4 %; Nucleated Red Blood Cells % 0 %; Platelet Count 339 10^3/cmm (130-400); Red Blood Count 4.59 10^6/uL (4.1-5.3); White Blood Count 8.3 10^3/uL (4.0-10.0)
[2021-06-03 07:08] LABS: Alanine Aminotransferase 8 U/L (0-33); Albumin Level 3.8 g/dL (3.5-5.2); Alkaline Phosphatase 86 IU/L (35-105); Anion Gap 16.8 (5-19); Aspartate Amino Transferase 10 U/L (0-32); Blood Urea Nitrogen 9 mg/dL (6-20); Calcium 9.2 mg/dL (8.5-10.5); Carbon Dioxide 20 mmol/L (22-29); Chloride 105 mmol/L (98-107); Globulin 2.9 g/dL (1.3-4.6); Glomerular Filtration Rate 93.6 mL/min (90-130); Glucose 88 mg/dL (65-115); Magnesium 1.7 mg/dL (1.7-2.3); Osmolality Calculated 284 mOsm/kg (285-295); Potassium 3.8 mmol/L (3.5-5.1); Sodium 138 mmol/L (136-145); Total Bilirubin 0.3 mg/dL (0.15-1.2); Total Protein 6.7 g/dL (6.6-8.7)
[2021-06-03 07:34] LABS: Chol HDL Ratio 5.97 mg/dL (0.0-4.40); Cholesterol 197 mg/dL (0-200); HDL Cholesterol 33 mg/dL (60-100); LDL Cholesterol Calculated 137 mg/dL (50-129); Triglycerides 137 mg/dL (0-150); VLDL Cholestrol Calculation 27 mg/dL (0-30)
[2021-06-03 08:00] VITALS: BP 121/82; PULSE 90; RESP 16; TEMP 36.6; O2SAT 97
[2021-06-03 08:04] LABS: Estmated Average Glucose 108; Hemoglobin A1C 5.4 % (4.0-6.0)
[2021-06-03] MEDS: escitalopram 10 mg Tablet 20 MG PO (08:27)
[2021-06-03] MEDS: lisinopril 20 mg Tablet 40 MG PO (08:27)
[2021-06-03] MEDS: pantoprazole DR 40 mg Tablet PO (08:28)
[2021-06-03 08:57] VITALS: RESP 16
--- NOTE | 2021-06-03 09:44 | PC.CHAP ---
Pastoral Care Encounter/Spiritual Assessment Type of Contact [] Declined stratigrapher visit [] Patient/Family/Request visit [] Outpatient visit [] Follow-up visit [] Physician referral [] Code/Alert [x Routine visit [] Staff referral [] Actively dying [] Patient sleeping [] Family support [] [] Out of room [] Palliative care [] [] Receiving care in room [] Pre-surgical visit [] Trauma [] Long length of stay [] ICU visit [] Other: Relational/Emotional Strength [x] Patient feels connected with others/family/visitors/staff [] Distress [] Loneliness/isolation [] Abandonment Spirituality of Patient []x Person of Leny [] Attends Mandaen of their Leny x[] Believes in Prayer [] Reads Bible or Samaritan materials [] There are Spiritual issues to be addressed Veterans Employment Representative Interventions [x] Prayer [x] Active listening [x] Non-anxious presence [x] Spiritual/emotional support [] Crisis/trauma care [] Spiritual counseling [] Bereavement support [] Provided bereavement packet [] Provided Bible/devotional materials [] Provided toy/stuffed animal, coloring book to patient or family member [] Provided Communion [] Anointing/[place] [] Salvation [x] Completed spiritual assessment [] Other: Impact on Illness or Injury [] Angry [] Fearful [] Anxious [] Often cries [] Exhaustion [] Unable to work [] Unable to attend jew [] Unable to walk/stand [] Unable to read [] Unable to drive [] Unable to eat/drink [] Unable to sleep [] Unable to be with family [] Patient intubated [] Other: Summary patient has pain Time spent with patient 15 min
[2021-06-03 11:59] VITALS: BP 102/66; PULSE 76; RESP 16; TEMP 36.3; O2SAT 97
--- NOTE | 2021-06-03 12:41 | PM.DCS ---
Discharge Providers Date of Admission: 06/02/21 19:39 Date of Discharge: June 03, 2021 Attending Provider at Admission: Candis Allen MD Attending Provider at Discharge: Jeremías Ashley MD Primary Care Provider: [facility] (KRUNAL) Diagnoses at Discharge Discharge Diagnosis (1) Colitis presumed infectious: Status: Acute (2) Dehydration: Status: Acute (3) Passage of bloody stools: Status: Acute (4) Benign essential HTN: Status: Acute Reason for Visit Reason for Visit: N/V/D, ALL OVER ABD PAIN, BEGAN YESTERDAY Hospital Course Hospital Course Awa Morrell is a 40 year old female with past medical history of hypertension, bariatric surgery, recent COVID-19 infection in February 2021 presents to the ER today with diarrhea and abdominal pain is getting worse over last 7 days. Patient was admitted to the hospital for severe dehydration and multiple episodes of diarrhea with possible bloody bowel movements. During hospitalization her hemoglobin remained stable. She was started on IV hydration and IV antibiotics. Her bowel movements improved. Stool studies came back positive for Campylobacter so far negative. Patient is been discharged in hemodynamically stable condition on oral azithromycin for 3 days for management of Campylobacter induced diarrhea. She is advised to maintain her oral hydration with up to 2 L of fluid daily which will be continued up to at least 500 cc of Gatorade to maintain electrolytes. She is advised to follow-up with a primary care provider within next 7 to 10 days. Physical Exam Narrative: EXAM NARRATIVE: General: No acute distress, AO x3 HEENT: PERRLA, pupils bilaterally equal and reactive Chest: Normal vesicular breath sounds, no added sounds, equal good air entry bilaterally CVS: S1-S2 regular, no murmurs, no tachycardia, no gallops, no rubs Abdomen: Soft, nontender, no organomegaly, bowel sounds present Neuro: No focal deficits, no facial deformity, AO x3, power 5/5 in all limbs Discharge Data Data Completed and Pending: Completed Studies During Hospitalization Category Date Time Status CT abdomen pelvis w con* [id number] Urge nt Cat Scan 06/02/21 13:19 Completed Pending at discharge Category Date Time Status Blood Culture Sta t Lab 06/02/21 18:32 Results Coronavirus Test [facility] Routi ne Lab 06/02/21 14:30 Received Erythrocyte Sedim entation Rate Rout ine Lab 06/03/21 05:15 Received Labs from last 24 hours 06/03/21 06/03/21 06/03/21 05:15 05:15 05:15 WBC Corrected WBC RBC Hgb Hct MCV MCH MCHC RDW Plt Count MPV Gran % Neut % (Auto) Lymph % (Auto) [place] % (Auto) Eos % (Auto) Baso % (Auto) Neut # (Auto) Lymph # (Auto) [place] # (Auto) Eos # (Auto) Baso # (Auto) Absolute Gran (aut o) Nucleated RBC % (a uto) Nucleated RBCs # ESR Pending Sodium Potassium Chloride Carbon Dioxide Anion Gap BUN Creatinine GFR Calculation Glucose Estimat Average Gl ucose 108 Hemoglobin A1c 5.4 Calculated Osmolal ity Lactate Calcium Magnesium Iron TIBC % Saturation Unsat Iron Binding Total Bilirubin AST ALT Alkaline Phosphata se C-Reactive Protein Total Protein Albumin Globulin Triglycerides 137 Cholesterol 197 LDL Cholesterol, C alc 137 H Total VLDL Cholest christiano 27 HDL Cholesterol 33 L Cholesterol/HDL Ra zora 5.97 H Lipase Procalcitonin TSH HCG, Qual Urine Color Urine Appearance Urine pH Ur Specific Gravit y Urine Protein Urine Glucose (UA) Urine Ketones Urine Blood Urine Nitrate Urine Bilirubin Urine Urobilinogen Ur Leukocyte Susi ase Urine RBC Urine WBC Ur Squamous Epith Cells Amorphous Sediment Urine Bacteria Urine Mucus Nasal/Oral COVID-1 9 PCR Influenza Type A A g Influenza Type B A g SARS-CoV-2 Ag (Rap id) 06/03/21 06/03/21 06/02/21 05:15 05:15 14:30 WBC 8.3 Corrected WBC RBC 4.59 Hgb 11.1 L Hct 35.5 L MCV 77.3 L MCH 24.2 L MCHC 31.3 RDW 19.0 H Plt Count 339 MPV 10.5 H Gran % Neut % (Auto) 82.4 Lymph % (Auto) 8.3 [place] % (Auto) 7.3 Eos % (Auto) 1.0 Baso % (Auto) 0.5 Neut # (Auto) 6.88 Lymph # (Auto) 0.7 L [place] # (Auto) 0.6 Eos # (Auto) 0.1 Baso # (Auto) 0.0 Absolute Gran (aut o) Nucleated RBC % (a uto) 0 Nucleated RBCs # 0.0 ESR Sodium 138 Potassium 3.8 Chloride 105 Carbon Dioxide 20 L Anion Gap 16.8 BUN 9 Creatinine 0.7 GFR Calculation 93.6 Glucose 88 Estimat Average Gl ucose Hemoglobin A1c Calculated Osmolal ity 284 L Lactate Calcium 9.2 Magnesium 1.7 Iron TIBC % Saturation Unsat Iron Binding Total Bilirubin 0.3 AST 10 ALT 8 Alkaline Phosphata se 86 C-Reactive Protein Total Protein 6.7 Albumin 3.8 Globulin 2.9 Triglycerides Cholesterol LDL Cholesterol, C alc Total VLDL Cholest christiano HDL Cholesterol Cholesterol/HDL Ra zora Lipase Procalcitonin TSH 1.65 HCG, Qual Urine Color Urine Appearance Urine pH Ur Specific Gravit y Urine Protein Urine Glucose (UA) Urine Ketones Urine Blood Urine Nitrate Urine Bilirubin Urine Urobilinogen Ur Leukocyte Susi ase Urine RBC Urine WBC Ur Squamous Epith Cells Amorphous Sediment Urine Bacteria Urine Mucus Nasal/Oral COVID-1 9 PCR Influenza Type A A g Influenza Type B A g SARS-CoV-2 Ag (Rap id) 06/02/21 06/02/21 06/02/21 14:30 14:30 14:30 WBC Corrected WBC RBC Hgb Hct MCV MCH MCHC RDW Plt Count MPV Gran % Neut % (Auto) Lymph % (Auto) [place] % (Auto) Eos % (Auto) Baso % (Auto) Neut # (Auto) Lymph # (Auto) [place] # (Auto) Eos # (Auto) Baso # (Auto) Absolute Gran (aut o) Nucleated RBC % (a uto) Nucleated RBCs # ESR Cancelled Sodium Potassium Chloride Carbon Dioxide Anion Gap BUN Creatinine GFR Calculation Glucose Estimat Average Gl ucose Hemoglobin A1c Calculated Osmolal ity Lactate 1.5 Calcium Magnesium Iron 16 L TIBC 404 % Saturation 3.9 L Unsat Iron Binding 388 H Total Bilirubin AST ALT Alkaline Phosphata se C-Reactive Protein Total Protein Albumin Globulin Triglycerides Cholesterol LDL Cholesterol, C alc Total VLDL Cholest christiano HDL Cholesterol Cholesterol/HDL Ra zroa Lipase Procalcitonin 0.10 TSH HCG, Qual Urine Color Urine Appearance Urine pH Ur Specific Gravit y Urine Protein Urine Glucose (UA) Urine Ketones Urine Blood Urine Nitrate Urine Bilirubin Urine Urobilinogen Ur Leukocyte Susi ase Urine RBC Urine WBC Ur Squamous Epith Cells Amorphous Sediment Urine Bacteria Urine Mucus Nasal/Oral COVID-1 9 PCR Influenza Type A A g Influenza Type B A g SARS-CoV-2 Ag (Rap id) 06/02/21 06/02/21 06/02/21 14:30 14:30 14:30 WBC Corrected WBC RBC Hgb Hct MCV MCH MCHC RDW Plt Count MPV Gran % Neut % (Auto) Lymph % (Auto) [place] % (Auto) Eos % (Auto) Baso % (Auto) Neut # (Auto) Lymph # (Auto) [place] # (Auto) Eos # (Auto) Baso # (Auto) Absolute Gran (aut o) Nucleated RBC % (a uto) Nucleated RBCs # ESR Sodium Potassium Chloride Carbon Dioxide Anion Gap BUN Creatinine GFR Calculation Glucose Estimat Average Gl ucose Hemoglobin A1c Calculated Osmolal ity Lactate Calcium Magnesium Iron TIBC % Saturation Unsat Iron Binding Total Bilirubin AST ALT Alkaline Phosphata se C-Reactive Protein Total Protein Albumin Globulin Triglycerides Cholesterol LDL Cholesterol, C alc Total VLDL Cholest christiano HDL Cholesterol Cholesterol/HDL Ra zora Lipase Procalcitonin TSH HCG, Qual Urine Color Urine Appearance Urine pH Ur Specific Gravit y Urine Protein Urine Glucose (UA) Urine Ketones Urine Blood Urine Nitrate Urine Bilirubin Urine Urobilinogen Ur Leukocyte Susi ase Urine RBC Urine WBC Ur Squamous Epith Cells Amorphous Sediment Urine Bacteria Urine Mucus Nasal/Oral COVID-1 9 PCR Pending Influenza Type A A g Negative Influenza Type B A g Negative SARS-CoV-2 Ag (Rap id) Negative 06/02/21 06/02/21 06/02/21 14:30 14:30 14:20 WBC 15.1 H Corrected WBC Emergency Veterinary Technician RBC 5.21 Hgb 12.7 Hct 40.1 MCV 77.0 L MCH 24.4 L MCHC 31.7 RDW 19.0 H Plt Count 412 H MPV 10.2 Gran % Emergency Veterinary Technician Neut % (Auto) 88.4 Lymph % (Auto) 6.5 [place] % (Auto) 4.1 Eos % (Auto) 0.2 Baso % (Auto) 0.4 Neut # (Auto) 13.30 H Lymph # (Auto) 1.0 [place] # (Auto) 0.6 Eos # (Auto) 0.0 Baso # (Auto) 0.1 Absolute Gran (aut o) Emergency Veterinary Technician Nucleated RBC % (a uto) 0 Nucleated RBCs # 0.0 ESR Sodium 138 Potassium 3.8 Chloride 102 Carbon Dioxide 22 Anion Gap 17.8 BUN 9 Creatinine 0.8 GFR Calculation 80.3 L Glucose 92 Estimat Average Gl ucose Hemoglobin A1c Calculated Osmolal ity 284 L Lactate Calcium 9.6 Magnesium Iron TIBC % Saturation Unsat Iron Binding Total Bilirubin 0.5 AST 10 ALT 10 Alkaline Phosphata se 77 C-Reactive Protein 117.4 H Total Protein 7.5 Albumin 4.3 Globulin 3.2 Triglycerides Cholesterol LDL Cholesterol, C alc Total VLDL Cholest christiano HDL Cholesterol Cholesterol/HDL Ra zora Lipase 25 Procalcitonin TSH HCG, Qual Negative Urine Color Urine Appearance Urine pH Ur Specific Gravit y Urine Protein Urine Glucose (UA) Urine Ketones Urine Blood Urine Nitrate Urine Bilirubin Urine Urobilinogen Ur Leukocyte Susi ase Urine RBC Urine WBC Ur Squamous Epith Cells Amorphous Sediment Urine Bacteria Urine Mucus Nasal/Oral COVID-1 9 PCR Influenza Type A A g Influenza Type B A g SARS-CoV-2 Ag (Rap id) 06/02/21 14:20 WBC Corrected WBC RBC Hgb Hct MCV MCH MCHC RDW Plt Count MPV Gran % Neut % (Auto) Lymph % (Auto) [place] % (Auto) Eos % (Auto) Baso % (Auto) Neut # (Auto) Lymph # (Auto) [place] # (Auto) Eos # (Auto) Baso # (Auto) Absolute Gran (aut o) Nucleated RBC % (a uto) Nucleated RBCs # ESR Sodium Potassium Chloride Carbon Dioxide Anion Gap BUN Creatinine GFR Calculation Glucose Estimat Average Gl ucose Hemoglobin A1c Calculated Osmolal ity Lactate Calcium Magnesium Iron TIBC % Saturation Unsat Iron Binding Total Bilirubin AST ALT Alkaline Phosphata se C-Reactive Protein Total Protein Albumin Globulin Triglycerides Cholesterol LDL Cholesterol, C alc Total VLDL Cholest christiano HDL Cholesterol Cholesterol/HDL Ra zora Lipase Procalcitonin TSH HCG, Qual Urine Color Yellow Urine Appearance Cloudy Urine pH 5 Ur Specific Gravit y 1.025 Urine Protein Neg Urine Glucose (UA) Norm Urine Ketones 1+ H Urine Blood 3+ H Urine Nitrate Negative Urine Bilirubin 1+ H Urine Urobilinogen 1 H Ur Leukocyte Susi ase Negative Urine RBC 0-4 H Urine WBC None Ur Squamous Epith Cells 5-10 H Amorphous Sediment 3+ Urine Bacteria 1+ H Urine Mucus Trace Nasal/Oral COVID-1 9 PCR Influenza Type A A g Influenza Type B A g SARS-CoV-2 Ag (Rap id) Addt'l Data from Hospital Stay: Laboratory Results WBC 8.3 10^3/uL (4.0- 10.0) 06/03/21 05:15 Corrected WBC Emergency Veterinary Technician 06/02/21 14:30 RBC 4.59 10^6/uL (4.1 -5.3) 06/03/21 05:15 Hgb 11.1 g/dL (11.5-1 5.3) L 06/03/21 05:15 Hct 35.5 % (37.0-47.0 ) L 06/03/21 05:15 MCV 77.3 fl (81-99) L 06/03/21 05:15 MCH 24.2 pg (28.0-34. 0) L 06/03/21 05:15 MCHC 31.3 g/dL (30.0-3 6.0) 06/03/21 05:15 RDW 19.0 % (12.1-15.1 ) H 06/03/21 05:15 Plt Count 339 10^3/cmm (130 -400) 06/03/21 05:15 MPV 10.5 fL (7.4-10.4 ) H 06/03/21 05:15 Gran % Emergency Veterinary Technician 06/02/21 14:30 Neut % (Auto) 82.4 % 06/03/21 05:15 Lymph % (Auto) 8.3 % 06/03/21 05:15 [place] % (Auto) 7.3 % 06/03/21 05:15 Eos % (Auto) 1.0 % 06/03/21 05:15 Baso % (Auto) 0.5 % 06/03/21 05:15 Neut # (Auto) 6.88 10^3/uL (1.8 -7.7) 06/03/21 05:15 Lymph # (Auto) 0.7 10^3/uL (0.8- 4.8) L 06/03/21 05:15 [place] # (Auto) 0.6 10^3/uL (0.2- 0.9) 06/03/21 05:15 Eos # (Auto) 0.1 10^3/uL (0.0- 0.8) 06/03/21 05:15 Baso # (Auto) 0.0 10^3/uL (0.0- 0.1) 06/03/21 05:15 Absolute Gran (aut o) Emergency Veterinary Technician 06/02/21 14:30 Nucleated RBC % (a uto) 0 % 06/03/21 05:15 Nucleated RBCs # 0.0 /100WBC 06/03/21 05:15 ESR Cancelled 06/02/21 14:30 Sodium 138 mmol/L (136-1 45) 06/03/21 05:15 Potassium 3.8 mmol/L (3.5-5 .1) 06/03/21 05:15 Chloride 105 mmol/L (98-10 7) 06/03/21 05:15 Carbon Dioxide 20 mmol/L (22-29) L 06/03/21 05:15 Anion Gap 16.8 (5-19) 06/03/21 05:15 BUN 9 mg/dL (6-20) 06/03/21 05:15 Creatinine 0.7 mg/dL (0.5-0. 9) 06/03/21 05:15 GFR Calculation 93.6 mL/min (90-1 30) 06/03/21 05:15 Glucose 88 mg/dL (65-115) 06/03/21 05:15 Estimat Average Gl ucose 108 06/03/21 05:15 Hemoglobin A1c 5.4 % (4.0-6.0) 06/03/21 05:15 Calculated Osmolal ity 284 mOsm/kg (285- 295) L 06/03/21 05:15 Lactate 1.5 mmol/L (0.5-2 .2) 06/02/21 14:30 Calcium 9.2 mg/dL (8.5-10 .5) 06/03/21 05:15 Magnesium 1.7 mg/dL (1.7-2. 3) 06/03/21 05:15 Iron 16 ug/dL (37-145) L 06/02/21 14:30 TIBC 404 mcg/dl 06/02/21 14:30 % Saturation 3.9 % (20-50) L 06/02/21 14:30 Unsat Iron Binding 388 ug/dL (112-34 7) H 06/02/21 14:30 Total Bilirubin 0.3 mg/dL (0.15-1 .2) 06/03/21 05:15 AST 10 U/L (0-32) 06/03/21 05:15 ALT 8 U/L (0-33) 06/03/21 05:15 Alkaline Phosphata se 86 IU/L (35-105) 06/03/21 05:15 C-Reactive Protein 117.4 mg/L (0.0-4 .9) H 06/02/21 14:30 Total Protein 6.7 g/dL (6.6-8.7 ) 06/03/21 05:15 Albumin 3.8 g/dL (3.5-5.2 ) 06/03/21 05:15 Globulin 2.9 g/dL (1.3-4.6 ) 06/03/21 05:15 Triglycerides 137 mg/dL (0-150) 06/03/21 05:15 Cholesterol 197 mg/dL (0-200) 06/03/21 05:15 LDL Cholesterol, C alc 137 mg/dL (50-129 ) H 06/03/21 05:15 Total VLDL Cholest christiano 27 mg/dL (0-30) 06/03/21 05:15 HDL Cholesterol 33 mg/dL (60-100) L 06/03/21 05:15 Cholesterol/HDL Ra zora 5.97 mg/dL (0.0-4 .40) H 06/03/21 05:15 Lipase 25 U/L (13-60) 06/02/21 14:30 Procalcitonin 0.10 ng/mL (0-0.5 ) 06/02/21 14:30 TSH 1.65 uIU/mL (0.27 -4.20) 06/02/21 14:30 HCG, Qual Negative (Negati ve) 06/02/21 14:20 Urine Color Yellow (Yellow) 06/02/21 14:20 Urine Appearance Cloudy (CLEAR) 06/02/21 14:20 Urine pH 5 (5-7) 06/02/21 14:20 Ur Specific Gravit y 1.025 (1.005-1.0 30) 06/02/21 14:20 Urine Protein Neg (Negative) 06/02/21 14:20 Urine Glucose (UA) Norm (Normal) 06/02/21 14:20 Urine Ketones 1+ (Negative) H 06/02/21 14:20 Urine Blood 3+ (Negative) H 06/02/21 14:20 Urine Nitrate Negative (Negati ve) 06/02/21 14:20 Urine Bilirubin 1+ (Negative) H 06/02/21 14:20 Urine Urobilinogen 1 mg/dL (Negative ) H 06/02/21 14:20 Ur Leukocyte Susi ase Negative (Negati ve) 06/02/21 14:20 Urine RBC 0-4 /hpf (0-2) H 06/02/21 14:20 Urine WBC None /hpf (0-5) 06/02/21 14:20 Ur Squamous Epith Cells 5-10 /hpf (0-5) H 06/02/21 14:20 Amorphous Sediment 3+ /hpf 06/02/21 14:20 Urine Bacteria 1+ /hpf (NONE) H 06/02/21 14:20 Urine Mucus Trace /hpf 06/02/21 14:20 Influenza Type A A g Negative (Negati ve) 06/02/21 14:30 Influenza Type B A g Negative (Negati ve) 06/02/21 14:30 SARS-CoV-2 Ag (Rap id) Negative (Negati ve) 06/02/21 14:30 Impressions Abdomen/Pelvis CT 06/02/21 13:19 IMPRESSION: 1. Diffuse colonic wall thickening suggestive of a colitis. 2. Small amount of nonspecific fluid in the pelvis. 3. Hepatic steatosis. 4. Right hepatic lobe low-density lesion measuring 14 mm in size with some internal hyperdensity. Further evaluation with non-emergent liver MRI is recommended. 5. Bilateral benign renal cysts, negative for follow-up advised. 6. Right kidney nonobstructing renal calyceal stone. 7. Scattered prominent nonspecific lymph nodes throughout the mesentery. Radiation Dose CTDIVOL = (mGy): DLP = 1857.51 (mGy-cm) Vitals: Last Vital Signs Temp 97.4 F L 06/03/21 11:59 Pulse 76 06/03/21 11:59 Resp 16 06/03/21 11:59 BP 102/66 06/03/21 11:59 Pulse Ox 97 06/03/21 11:59 Discharge Plan Discharge Patient Disposition: Home Condition: Stable Prescriptions: New azithromycin 500 mg tablet See Rx Instructions .ROUTE .COMPLEX Qty: 3 RF: 0 Continued cholecalciferol (vitamin D3) 1,000 units PO DAILY RF: 0 hydroxyzine HCl 25 mg tablet 25 mg PO QID PRN (Reason: Anxiety) RF: 0 escitalopram oxalate [Lexapro] 10 mg tablet 20 mg PO DAILY RF: 0 nitroglycerin 0.4 mg tablet, sublingual 0.4 mg sublingual Q5M PRN (Reason: chest pain) RF: 0 lisinopril 40 mg tablet 40 mg PO DAILY Qty: 90 RF: 3 omega-3 fatty acids 1,000 mg capsule 1,000 mg PO DAILY RF: 0 pantoprazole [Protonix] 40 mg tablet,delayed release (DR/EC) 40 mg PO DAILY 30 Days Qty: 30 RF: 2 Held docusate sodium 100 mg capsule 100 mg PO DAILY RF: 0 Hold Instructions: Resume on 06/15/21. Discharge Orders: Discharge Order (Routine); Ordered 06/03/21 Ordered By: Jeremías Ashley Referrals: [facility] [Primary Care Provider] - Discharge Diet: Usual diet Discharge Activity: Resume usual activity Patient Instructions: Opioid Safety Activity Restrictions/Additional Instructions: Take azithromycin for next 3 days. Drink up to 2 L of fluid daily including 500 cc of Gatorade to maintain your electrolytes. Please follow-up with a primary care provider within next 1 week. Discharge Attestations Time Spent in Discharge Care*: greater than 30 min Specific Discharge Activities: educating patient, discussing with pcp/other providers, discussing with embedded case manager/social workers/dc planners, documenting/other paperwork and evaluating patient/reviewing data Status at Discharge: Cognitive status at discharge: cognitively intact, Behavioral status at discharge: cooperative, Functional status at discharge: independent ambulation Overall status at discharge: patient is back to baseline Quality Metrics Clinical Quality Measures During this hospital stay, did patient experience: None Coding Level of Care Code Acute Chg FW DC note Diagnoses Colitis presumed infectious K52.9 Dehydration E86.0 Passage of bloody stools K92.1 Benign essential HTN I10
[2021-06-03] MEDS: azithromycin 250 mg Tablet 500 MG PO (13:56)
[2021-06-03 14:32] VITALS: BP 102/66; PULSE 76; RESP 16; TEMP 36.3; O2SAT 98
[2021-06-03 16:14] LABS: Vitamin B12 314 pg/mL (232-1245)
--- NOTE | 2021-06-03 18:01 | PC.RESP ---
Smoking Cessation information sent to patient.
[2021-06-04 08:38] LABS: Coronavirus Test Green County Not Detected
[2021-06-06 12:41] LABS: Erythrocyte Sedimentation Rate 17 mm/hr (0-15)
== END 2021-06-03 14:36 | disposition home or self-care (01) ==
LOC: ER 18:54 → MEDSURG 06-03 07:17
PROVIDERS: Emergency Medicine; Admitting Provider Student in an Organized Health Care Education/Training Program; Emergency Provider Family Medicine; Visit Provider Student in an Organized Health Care Education/Training Program
DX: A04.5 Campylobacter enteritis (principal); I10 Essential (primary) hypertension; E66.01 Morbid (severe) obesity due to excess calories; Z68.42 Body mass index [BMI] 45.0-49.9, adult; E55.9 Vitamin D deficiency, unspecified; E86.0 Dehydration; G47.33 Obstructive sleep apnea (adult) (pediatric); K21.9 Gastro-esophageal reflux disease without esophagitis; F41.9 Anxiety disorder, unspecified; F17.290 Nicotine dependence, other tobacco product, uncomplicated; Z98.84 Bariatric surgery status; Z86.16 Personal history of COVID-19
CPT/HCPCS: 36415; 74177; 80053; 80061; 81001; 81025; 82607; 83036; 83540; 83550; 83605; 83630; 83690; 83735; 84145; 84443; 85025; 85651; 86140; 86403; 87040; 87426; 87493; 87506; 87635; 87804; 96365; 96366; 96367; 96375; 99285; G0378; J1170; J2060; J2270; J2405; J2543; J7030; Q0144; Q9967

== ENCOUNTER 2021-06-27 14:09 | Outpatient (CLI) | payer BC, SELFPAY ==
--- NOTE | 2021-06-27 14:30 | MR_ITS ---
WS: [id number] MRI LIVER with and without CONTRAST. COMPARISON: CT abdomen 06/02/2021, 03/20/2020. Multiplanar, multisequence imaging is performed with and without contrast. 13 mm nodule recently described in the posterior superior liver is difficult to visualize on all sequ ences due to small size and change in position during breathing pattern. Seen best on the coronal T2 fast image is a 13 mm slightly lobulated hyperintense nodule. This is not seen on all sequences. On t he postcontrast imaging this nodule starts with mild peripheral enhancement and nearly completely tracy ls in on the subsequent delayed imaging suggesting this is a benign hemangioma. No additional lesions are identified within the liver. Normal portal vein. Small bilateral renal cysts are identified. The largest measures 10 mm. Normal size pancreas. Normal adrenal glands. Negative gallbladder. MR/MR abdomen wo/w con* [id number] IMPRESSION: 1. Previously described hepatic mass measures 13 mm. Not seen on all sequences due to the small size. This does have the most typical appearance for a benign hemangioma. Suggest interval 3-4 month follow-up MRI with and without contrast to confirm there is no enlargement and this is likely a hemangioma which is st able. 2. Bilateral renal cysts. 3. No ascites.
[2021-06-27] MEDS: gadobenate dimeglumine 20 mL vial IV (16:09)
== END 2021-06-27 14:10 | disposition home or self-care (01) ==
PROVIDERS: Visit Provider Family Medicine
DX: K76.89 Other specified diseases of liver (principal); Q61.02 Congenital multiple renal cysts
CPT/HCPCS: 74183; A9577

== ENCOUNTER 2021-07-02 11:27 | Outpatient (CLI) | payer BC, SELFPAY ==
--- NOTE | 2021-07-02 11:46 | ECG_ITS ---
[facility] Test Date: 2021-07-02 Pat Name: Awa Morrell Department: Room: Gender: Female Correspondence Dictator: : 1980 Requested By: Danielle Chappell Order Number: [id number] Zohaib MD: Danielle Chappell M.D. Interpretive Statements NAME OF STUDY: TREADMILL STRESS ECHOCARDIOGRAM INDICATION: Chest Pain, PROCEDURE: The baseline electrocardiogram showed normal sinus rhythm with normal ST-Ts. At the baseline, the patient's blood pressure was 125/77 mm Hg with a heart rate of 86. The patient exercised for 5 minutes and 57 seconds on a standard Drake protocol. Patient attained a maximum heart rate of 177 beats per minute(97% of the maximum predicted heart rate) with a blood pressure at the peak exercise of 168/84 mm Hg. The EKG at the peak exercise revealed no significant changes. Patient did not have any chest pain or any significant arrhythmis with the exercise The echocardiographic pictures were taken at the baseline, immediate post exercise and during the recovery phase, at the standard views. During the recovery phase, there were no new changes. Blood pressure at the end of the recovery phase was 102/60 mm Hg with a heart rate of 93 per minute. CONCLUSION: 1. No significant EKG changes with the treadmill exercise 2. No exercise-induced chest pain or cardiac arrhythmia 3. Slightly impaired exercise tolerance, attained a maximum of 7.0 METs 4. Echocardiographic pictures were taken at the standard views; see separate report. Electronically Signed On 07-12-2021 10:42:21 PODIATRIC AIDE by Danielle Chappell M.D. [email or web address]
[2021-07-02 11:49] VITALS: BMI 47.0
--- NOTE | 2021-07-02 12:15 | USCV_ITS ---
Stress Echo Awa Morrell Age: 40 Gender: F : 1980 Exam Date: 07/02/2021 12:02 Ordering Phys: Danielle Chappell MD ([email or web address]) Technologist: Carolina Lennon Exam Location: [facility] Indication: Chest Pain Rhythm: Sinus Patient History: Chest pain, Smoker, Hypertension Cardiac Medications: JOSE ANGEL Inhibitor Medications in past 24 hours: NONE Contrast: Optison Stress Results Protocol: Drake Total dose(mL): 3 Exercise Duration (min:sec): 05:57 METS: 7.0 Resting HR: 67 Resting BP: 125 / 77 Peak HR: 177 Peak BP: 182 / 85 Max Predicted HR: 182 97 % Max Predicted HR Target HR: 155 Double Product: 13443 Stress Summary: The patient's target heart rate was achieved BP Response: Normal Reason for Termination: Test terminated after reaching target heart rate (85% max predicted), Maximal effort/unable to continue Cardiac Symptoms: Short of Breath ECG Analysis Resting ECG: Please see separate report Stress ECG: Please see separate report Arrhythmia: Please see separate report MEASUREMENTS (Male/Female) Normal Values FINDINGS The study was a suboptimal quality. Contrast agent (Optisol) was used to delineate the endocardial borders. A baseline echocardiogram revealed normal LV size and ejection fraction. Segmental wall motion analysis revealed no gross wall motion abnormalities. Study quality was suboptimal. With the peak exercise, there was good augmentation of all the segments with no exercise-induced wall motion abnormalities. During the recovery phase, no new wall motion abnormalities were noted CONCLUSIONS 1. Normal echocardiographic response to exercise. 2. Study was performed with the contrast agent- Optison. 3. No significant coronary ischemia, based on the above finding Dr Danielle Chappell MD [facility] (Electronically Signed) Final Date: 10 July 2021 06:35 S
[2021-07-02 12:48] VITALS: BP 100/59; PULSE 99
[2021-07-02] MEDS: perflutren protein-a microsphr 0.22 mg/mL SDV 3 mL IV (13:03)
== END 2021-07-02 11:28 | disposition home or self-care (01) ==
LOC: CDL 11:28
PROVIDERS: PCP Family Medicine; Visit Provider Internal Medicine Cardiovascular Disease
DX: R07.9 Chest pain, unspecified (principal); R06.02 Shortness of breath
CPT/HCPCS: 93017; 93350; 93352; Q9956

== ENCOUNTER 2021-10-02 13:35 | Outpatient (CLI) | payer BC, SELFPAY ==
--- NOTE | 2021-10-02 13:30 | USCV_ITS ---
Awa Morrell Age: 40 Gender: F : 1980 Exam Date: 10/02/2021 14:00 Ordering Phys: Danielle Chappell MD ([email or web address]) Technologist: Parth Mccoy [place] [facility] [place]: carotid bruit Risk Factors: Previous Vascular Surgery: Right Brachial BP: / Left Brachial BP: / Right Left Velocity (cm/s) Spectral Plaque Velocity (cm/s) Spectral Plaque Syst/Diast Broadening Syst/Diast Broadening 109.10/36.40 Prox CCA 121.80/ 32.80 121.30/28.70 Mid CCA 82.30 / 31.80 93.70/ 33.10 Distal CCA 74.60 / 30.30 94.00/ 32.60 Prox ICA 136.70/ 59.50 113.40/45.80 Mid ICA 131.20/ 61.70 111.10/44.30 Distal ICA 123.50/ 63.90 141.10 ECA 162.10 0.94 ICA/CCA 1.59 Antegrade Vertebral Antegrade 61.40/ 17.10 cm/s 93.70/ 30.90 cm/s Tri Subclavian Tri 103.4 152.5 0 0 FINDINGS Thickening in the colon carotid artery and of the bifurcations No unstable plaques or lesions. Normal Doppler flow velocities and ratios Antegrade flow in the vertebral arteries bilaterally CONCLUSIONS Numerous thickening in the carotid arteries sanded bifurcations bilaterally No significant plaques or stenosis noted Dr Danielle Chappell MD [facility] (Electronically Signed) Final Date: 03 October 2021 13:15 S
== END 2021-10-02 13:36 | disposition home or self-care (01) ==
LOC: RAD 13:36
PROVIDERS: PCP Family Medicine; Visit Provider Internal Medicine Cardiovascular Disease
DX: R09.89 Other specified symptoms and signs involving the circulatory and respiratory systems (principal); I65.23 Occlusion and stenosis of bilateral carotid arteries
CPT/HCPCS: 93880

== ENCOUNTER 2021-10-02 13:37 | Outpatient (CLI) | payer BC, SELFPAY ==
[2021-10-02 15:23] LABS: 25 Hydroxy Vitamin D > 100 ng/mL (30-100)
== END 2021-10-02 13:38 | disposition home or self-care (01) ==
LOC: LAB 13:38
PROVIDERS: PCP Family Medicine; Visit Provider Internal Medicine
DX: E55.9 Vitamin D deficiency, unspecified (principal)
CPT/HCPCS: 36415; 82306

== ENCOUNTER 2021-10-08 16:23 | Outpatient (CLI) | payer BC, SELFPAY ==
[2021-10-08 17:29] LABS: Calcium 9.8 mg/dL (8.5-10.5)
[2021-10-08 17:32] LABS: Parathyroid Hormone 60.8 pg/mL (15-65)
== END 2021-10-08 16:24 | disposition home or self-care (01) ==
LOC: LAB 16:32
PROVIDERS: PCP Family Medicine; Visit Provider Internal Medicine
DX: E55.9 Vitamin D deficiency, unspecified (principal); N20.0 Calculus of kidney
CPT/HCPCS: 36415; 82310; 83970

== ENCOUNTER 2021-11-15 15:52 | Outpatient (CLI) | payer BC, SELFPAY ==
--- NOTE | 2021-11-15 15:57 | MR_ITS ---
WS: [id number] MRI ABDOMEN with and without CONTRAST. COMPARISON: 06/27/2021 Multiplanar, multisequence imaging is performed with and without contrast. Sagittal and axial T1 fat sat sequences post-MultiHance 20 cc IV. Liver is mildly enlarged extending over length of 18 cm. There is mild diffuse hepatic steatosis. On the T1 opposed phase imaging there is mild diffuse loss of signal throughout the liver. Again noted i s the T2 hyperintense lesion in the posterior superior liver, just posterior to the proximal RIGHT he patic vein. This lesion is low signal on the in and out phase imaging. Homogeneously bright on the T2 sequences. Well-circumscribed lesion measures 19 x 20 mm. Very minimal increase in size since the pr ior examination. Measurements are very similar to the CT from 06/02/2021. Small bilateral cortical cysts within each kidney are reidentified without increase in size. No renal mass or abnormal enhancement. Normal gallbladder. No ascites. Normal appendix and spleen. No adrenal mass. Lung bases are clear. MR/MR abdomen wo/w con* [id number] IMPRESSION: 1. Very minimal increase in size of the hepatic lesion just posterior to the R IGHT hepatic vein. Lesion measures 19 x 20 mm and follows fluid signal on all n onenhanced sequences. Only a delayed, 5 minute, image was performed postcontras t due to overheating of the magnet. There was mild peripheral enhancement. Due to its stability favor this is probably hemangioma. 2. We attempted to bring the patient back for additional imaging. Patient has decided to forego additional MRI imaging at this time. 3. We can attempt to do a hepatic CT with hemangioma protocol as an alternativ e examination. Part of the reason the study was suboptimal was due to the patie nt's body habitus and overheating of the magnet. CT evaluation would eliminate this problem.
[2021-11-15] MEDS: gadobenate dimeglumine 20 mL vial IV (16:46)
== END 2021-11-15 15:53 | disposition home or self-care (01) ==
PROVIDERS: PCP Family Medicine; Visit Provider Family Medicine
DX: K76.89 Other specified diseases of liver (principal)
CPT/HCPCS: 74183

== ENCOUNTER 2022-01-20 08:49 | Day surgery (SDC) | payer BC, SELFPAY ==
[2022-01-16 09:42] VITALS: BMI 47.0
--- NOTE | 2022-01-20 07:59 | W.PM.OPSFHP ---
Same Day Surgery H&P Indication for Procedure/HPI DATE OF PROCEDURE: January 20, 2022 CHIEF COMPLAINT/INDICATIONFOR SURGICAL PROCEDURE: Abdominal pain and constipation PREOP DIAGNOSIS: GERD associated with morbid obesity PLANNED PROCEDURE: Operation Date: 01/20/22 10:45 Proposed Procedures p EGD 19940/66580/R92.1(Not Applicable) - Marco Antonio Romo MD s Colonoscopy(Not Applicable) - Marco Antonio Romo MD Medications/Allergies* Home Medications Medication Instructions Recorded Confirmed Type hydroxyzine HCl 25 mg tablet 25 mg PO QID PRN 11/05/20 01/16/22 History nitroglycerin 0.4 mg sublingual 0.4 mg SUBLINGUAL Q5M PRN tab 05/14/21 01/16/22 History tablet ferrous fumarate 325 mg (106 mg 325 mg PO DAILY 11/20/21 01/16/22 History iron) tablet (Ferretts) loratadine 10 mg tablet (Allergy 10 mg PO DAILY 11/26/21 01/16/22 History Relief (loratadine)) ergocalciferol (vitamin D2) 1,250 1 unit PO .WKLY 01/16/22 01/16/22 History mcg (50,000 unit) capsule (Vitamin D2) escitalopram oxalate 20 mg tablet 20 mg PO DAILY 01/16/22 01/16/22 History fluticasone propionate 50 2 spray INTRANASAL DAILY PRN 01/16/22 01/16/22 History mcg/actuation nasal spray,suspension ibuprofen 800 mg tablet 800 mg PO TID PRN 01/16/22 01/16/22 History Allergies/Adverse Reactions Allergy/AdvReac Type Severity Reaction Status Date / Time No Known Allergies Allergy Verified 01/09/22 09:40 Pertinent History/Comorbid Conditions* Medical History (Updated 01/09/22 @ 10:25 by Marco Antonio Romo MD) Anxiety and depression Atypical chest pain The EKG done on 04/07/2021 revealed a sinus rhythm with a normal ST Ts. Benign essential HTN Chronic pelvic pain in female GERD (gastroesophageal reflux disease) Hypercalcemia Kidney stones Moderate obstructive sleep apnea Morbid obesity with BMI of 45.0-49.9, adult Vapes non-nicotine containing substance Viral URI Vitamin D deficiency Weight gain Surgical History (Updated 06/02/21 @ 19:18 by Jeremías Ashley MD) H/O laparoscopy 11/07/2020- diagnostic laparoscopy performed by Dr. Husain at [facility] H/O lithotripsy x2 History of tonsillectomy and adenoidectomy Tubal ligation status (~2005) Family History (Updated 11/24/19 @ 10:44 by Kim Fernandez LPN) Diabetes Mother Family/Other Aunt Cancer Mother Grandmother Denies family history of CAD (coronary artery disease) Clotting disorder Dementia Hyperlipidemia Psychiatric illness Chronic kidney disease (CKD) Anesthesia complication Bleeding disorder Family history of premature coronary artery disease Lung disease Hypertension Social History Smoking and tobacco status: current every day smoker e-cigarettes E-Cigarette Details: vaporizer device and with nicotine E-cig/vape details: uses daily, equivalent to 1 pack per day Alcohol intake: current Alcohol intake frequency: holidays/special occasions only Alcohol type: hard liquor Caregiver/support person: Yes Lives independently: Yes Household members: family Pertinent Exam Findings alert, oriented x 3, clear to auscultation bilaterally, regular rate & rhythm, operative site marked and procedure specific exam findings Recommendations Surgery/Procedure today Coding Level of Care Code 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
[2022-01-20 09:22] VITALS: BP 129/72; PULSE 88; RESP 18; TEMP 36.3; O2SAT 95
[2022-01-20] MEDS: sodium chloride 0.9% 1,000 ML 30 ML IV (09:29)
[2022-01-20 09:32] LABS: OR HCG Qualitative Urine Negative (Negative)
--- NOTE | 2022-01-20 10:09 | ANES.PREANE2 ---
Pre-Anesthetic Assessment Height/Weight: Height 1.7 m Weight 136.078 kg Temp Pulse Resp BP Pulse Ox 97.4 F L 88 18 129/72 95 01/20/22 09:22 01/20/22 09:22 01/20/22 09:22 01/20/22 09:22 01/20/22 09:22 Preop Diagnosis: chronic const and hematochezia Operation Date: 01/20/22 10:45 Proposed Procedures p EGD [id number]/R92.1(Not Applicable) - Marco Antonio Romo MD s Colonoscopy(Not Applicable) - Marco Antonio Romo MD Familial anesthetic complications: none Was Beta Christin taken within 24 hours: N/A Was Clonidine taken within 24 hours: N/A Last intake: Intake Last Liquid Date 01/19/22 Last Liquid Time 23:30 Last Solid Date 01/18/22 Last Solid Time 22:00 Social No alcohol and No tobacco Exam alert, oriented x 3, clear to auscultation bilaterally and regular rate & rhythm Airway Submandibular: within normal limits Cervical ROM: within normal limits Mallampati: Class II Dentition: full CV/HEM Anemia and Hypertension GI Gastroesophageal Reflux Disease Metabolic Morbid Obesity Neuropsych Anxiety and Depression Anesthetic Plan ASA status: 3 Anesthesia: General Medications/Allergies Home Medications Medication Instructions Recorded Confirmed Last Taken Type hydroxyzine HCl 25 mg tablet 25 mg PO QID PRN 11/05/20 01/16/22 01/19/22 History pantoprazole 40 mg tablet,delayed 40 mg PO DAILY 30 Days #30 tab 03/05/21 01/16/22 01/19/22 Rx release (Protonix) lisinopril 40 mg tablet 40 mg PO DAILY #90 tab 05/14/21 01/16/22 01/19/22 Rx nitroglycerin 0.4 mg sublingual 0.4 mg SUBLINGUAL Q5M PRN tab 05/14/21 01/16/22 Unknown History tablet ferrous fumarate 325 mg (106 mg 325 mg PO DAILY 11/20/21 01/16/22 01/19/22 History iron) tablet (Ferretts) loratadine 10 mg tablet (Allergy 10 mg PO DAILY 11/26/21 01/16/22 01/19/22 History Relief (loratadine)) ergocalciferol (vitamin D2) 1,250 1 unit PO .WKLY 01/16/22 01/16/22 01/19/22 History mcg (50,000 unit) capsule (Vitamin D2) escitalopram oxalate 20 mg tablet 20 mg PO DAILY 01/16/22 01/16/22 01/19/22 History fluticasone propionate 50 2 spray INTRANASAL DAILY PRN 01/16/22 01/16/22 01/19/22 History mcg/actuation nasal spray,suspension ibuprofen 800 mg tablet 800 mg PO TID PRN 01/16/22 01/16/22 01/19/22 History Allergies Allergy/AdvReac Type Severity Reaction Status Date / Time No Known Allergies Allergy Verified 01/09/22 09:40 Current Medications Generic Name Dose Route Start Last Admin Trade Name Freq PRN Reason Stop Dose Admin Sodium Chloride 1,000 mls @ 30 mls/hr 01/20/22 09:15 01/20/22 09:29 Sodium Chloride 0.9% IV 30 mls/hr .Q24H KASEY Administration PFSH Anesthesia Medical History Anxiety and depression Atypical chest pain The EKG done on 04/07/2021 revealed a sinus rhythm with a normal ST Ts. Benign essential HTN Chronic pelvic pain in female GERD (gastroesophageal reflux disease) Hypercalcemia Kidney stones Moderate obstructive sleep apnea Morbid obesity with BMI of 45.0-49.9, adult Vapes non-nicotine containing substance Viral URI Vitamin D deficiency Weight gain Surgical History H/O laparoscopy 11/07/2020- diagnostic laparoscopy performed by Dr. Husain at [facility] H/O lithotripsy x2 History of tonsillectomy and adenoidectomy Tubal ligation status (~2005) Family History Mother Cancer Diabetes Grandmother Cancer Family/Other Diabetes Aunt Denies family history of CAD (coronary artery disease) Clotting disorder Dementia Hyperlipidemia Psychiatric illness Chronic kidney disease (CKD) Anesthesia complication Bleeding disorder Family history of premature coronary artery disease Lung disease Hypertension Social History Smoking and tobacco status: current every day smoker e-cigarettes E-Cigarette Details: vaporizer device and with nicotine E-cig/vape details: uses daily, equivalent to 1 pack per day Alcohol intake: current Alcohol intake frequency: holidays/special occasions only Alcohol type: hard liquor Caregiver/support person: Yes Lives independently: Yes Household members: family Female Reproductive History Date of last menstrual period: 01/16/22 Data Anesthesia Cardiac Studies: Stress Echocardiogram 07/02/21
[2022-01-20 11:25] VITALS: BP 114/80; PULSE 71; RESP 14; TEMP 36.3; O2SAT 98
[2022-01-20 11:38] VITALS: BP 111/78; PULSE 76; RESP 16; O2SAT 97
--- NOTE | 2022-01-20 13:53 | ANE.PACU2 ---
Inpatient post-anesthesia follow up: Airway intact: Yes Vital signs: Temperature 97.4 F Pulse Rate 76 Respiratory Rate 16 Blood Pressure 111/78 Pulse Oximetry 97 Oxygen Delivery Me thod Room Air Oxygen Flow Rate 4 Fraction of Inspir ed Oxygen Hydration adequate: Yes Nausea and vomiting: No Pain level: 1 Mental status: Baseline
[2022-01-21 13:49] LABS: H. Pylori / CLO Test Negative
== END 2022-01-20 12:00 | disposition home or self-care (01) ==
PROVIDERS: Anesthesiology; PCP Family Medicine; Visit Provider Internal Medicine
PROC: 0DJ08ZZ Inspection of Upper Intestinal Tract, Via Natural or Artificial Opening Endoscopic (ICD-10-PCS; CPT 43235; principal; 2022-01-20 10:45)
PROC: 0DJD8ZZ Inspection of Lower Intestinal Tract, Via Natural or Artificial Opening Endoscopic (ICD-10-PCS; CPT 45378; 2022-01-20 10:45)
DX: K92.1 Melena (principal); K64.4 Residual hemorrhoidal skin tags; K57.30 Diverticulosis of large intestine without perforation or abscess without bleeding; K21.00 Gastro-esophageal reflux disease with esophagitis, without bleeding; Z87.11 Personal history of peptic ulcer disease; I10 Essential (primary) hypertension; E66.01 Morbid (severe) obesity due to excess calories; Z68.42 Body mass index [BMI] 45.0-49.9, adult; F41.9 Anxiety disorder, unspecified; F32.9 Major depressive disorder, single episode, unspecified; E55.9 Vitamin D deficiency, unspecified; F17.290 Nicotine dependence, other tobacco product, uncomplicated
CPT/HCPCS: 43239; 45378; 81025; 84703; 87077; J2704; J7030

== ENCOUNTER 2022-11-06 21:14 | Emergency (ER) | payer BC, SELFPAY ==
[2022-11-06 21:39] VITALS: BP 135/79; PULSE 95; RESP 15; TEMP 36.9; O2SAT 96; BMI 48.5
[2022-11-06 23:27] VITALS: PULSE 89; RESP 16; O2SAT 99
--- NOTE | 2022-11-07 01:12 | W.ED.GENADLT ---
HPI - General Adult General: Chief complaint: General Medical Stated complaint: possibly ingested cleaner touch up worker Time Seen by Provider: 11/06/22 21:43 History of Present Illness: Patient is in today for possible ingestion of a toxic substance. Patient reports that she was cleaning with cleaner touch up worker and dropped some of the crystals on her kitchen counter into a small puddle of water. Patient reports that she did not really realize she had done that and later was making a sandwich on the same counter without her glasses on. She reports that she took 2 bites of the sandwich and felt a little warm above her upper lip. Patient states that she put her glasses on and looked at the counter and it appears that there is a puddle of light on the counter. Patient did not drink or eat anything further because she did not know if she should induce vomiting or drink. Patient came directly to the ER within 20 minutes. Associated symptoms: Deny chest pain, dyspnea, headache(s), nausea, palpitations, syncope or vomiting Review of Systems Const: Denies: fever(s), chills or body aches Eyes: Denies: change in vision or blurry vision ENMT: Denies: throat pain Card: Denies: chest pain, palpitations, irregular heart rhythm, lightheadedness or syncope Resp: Denies: dyspnea, productive cough or non-productive cough GI: Denies: abdominal pain, nausea or vomiting : Denies: flank pain, difficulty voiding, dysuria, urinary frequency, urinary urgency or urinary hesitancy Musc: Denies: neck pain or back pain Neuro: Denies: headache(s), numbness in extremities or weakness in extremities PFSH ED PFSH: Medical History Anxiety and depression Atypical chest pain The EKG done on 04/07/2021 revealed a sinus rhythm with a normal ST Ts. Benign essential HTN Chronic pelvic pain in female GERD (gastroesophageal reflux disease) Hypercalcemia Kidney stones Moderate obstructive sleep apnea Morbid obesity with BMI of 45.0-49.9, adult Vapes non-nicotine containing substance Viral URI Vitamin D deficiency Weight gain Surgical History H/O laparoscopy 11/07/2020- diagnostic laparoscopy performed by Dr. Husain at [facility] H/O lithotripsy x2 History of tonsillectomy and adenoidectomy Tubal ligation status (~2005) Family History Mother Cancer Diabetes Grandmother Cancer Family/Other Diabetes Aunt Denies family history of CAD (coronary artery disease) Clotting disorder Dementia Hyperlipidemia Psychiatric illness Chronic kidney disease (CKD) Anesthesia complication Bleeding disorder Family history of premature coronary artery disease Lung disease Hypertension Social History Smoking and tobacco status: current every day smoker e-cigarettes E-Cigarette Details: vaporizer device and with nicotine E-cig/vape details: uses daily, equivalent to 1 pack per day Alcohol intake: current Alcohol intake frequency: holidays/special occasions only Alcohol type: hard liquor Caregiver/support person: Yes Lives independently: Yes Household members: family Physical Exam Const: COMMON NORMALS: no acute distress GENERAL APPEARANCE: cooperative ORIENTATION/CONSCIOUSNESS: Yes awake HENMT: MOUTH: Normal oral and palatal mucosa present THROAT: posterior oropharynx normal Resp: COMMON NORMALS: normal respiratory effort, No retractions, No use of accessory muscles and clear to auscultation bilaterally EFFORT & INSPECTION: Yes symmetric chest movement AUSCULTATION: clear to auscultation bilaterally Cardio: COMMON NORMALS: regular rate, regular rhythm, S1 normal heart sound present and S2 normal heart sound present RATE: regular rate RHYTHM: regular rhythm HEART SOUNDS: S1 normal heart sound present and S2 normal heart sound present GI: COMMON NORMALS: Normal to inspection, nondistended, normoactive bowel sounds present, Soft to palpation, non-tender, No hepatosplenomegaly present, no masses and no bruits INSPECTION: Yes normal to inspection PALPATION: Yes Soft to palpation and Yes No hepatosplenomegaly present Skin: NARRATIVE SKIN EXAM: No erythema noted to the upper lip where patient states the skin feels warm. No erythema to hands or patient has been cleaning with cleaner touch up worker. Course Vital Signs: Vital signs: Vital Signs Temperature 98.4 F 11/06/22 21:39 Pulse Rate 89 11/06/22 23:27 Respiratory Rate 16 11/06/22 23:27 Blood Pressure 135/79 11/06/22 21:39 Pulse Oximetry 99 11/06/22 23:27 Oxygen Delivery Me thod 11/06/22 21:39 MDM - General Adult Medical Decision Making Patient is in for a possible ingestion of cleaner touch up worker. She is extremely anxious that she has ingested cleaner touch up worker. I did contact poison control because patient is complaining of burning to the skin above her lip. There is no complaints of burning in her mouth. Oral mucosa and posterior oropharynx appear within normal limits. Speaking with poison control it is advised that the patient drink plenty of water. Wash the face with soap and water to make sure that all residue of drink clean is removed. They advised the patient should not experience any significant impact as it is already been more than an hour since ingestion. Patient is able to drink water. Her face is washed. Aftercare instructions given. Encouraged her to keep poison control phone number handy should she ever have an accidental ingestion again. Also encouraged her to make sure that food is not around any cleaning products. Discharge Plan Discharge Patient Disposition: Home Clinical Impression: Ingested substance, unknown, nonmedicinal Condition: Stable Prescriptions: No Action hydroxyzine HCl 25 mg tablet 25 mg PO QID PRN (Reason: Anxiety) nitroglycerin 0.4 mg tablet, sublingual 0.4 mg sublingual Q5M PRN (Reason: chest pain) Ferretts 325 mg (106 mg iron) tablet 325 mg PO DAILY loratadine [Allergy Relief (loratadine)] 10 mg tablet 10 mg PO DAILY fluticasone propionate 50 mcg/actuation spray,suspension See Rx Instructions .ROUTE .COMPLEX Qty: 48 3RF Dose Instruction: SPRAY 1 SPRAY INTO EACH NOSTRIL TWICE DAILY FOR NASAL CONGESTION Rx Instructions: SPRAY 1 SPRAY INTO EACH NOSTRIL TWICE DAILY FOR NASAL CONGESTION lisinopril 40 mg tablet 40 mg PO DAILY Qty: 90 3RF Linzess 145 mcg capsule See Rx Instructions .ROUTE .COMPLEX Qty: 90 1RF Dose Instruction: TAKE 1 CAPSULE BY MOUTH EVERY DAY Rx Instructions: TAKE 1 CAPSULE BY MOUTH EVERY DAY ergocalciferol (vitamin D2) [Vitamin D2] 1,250 mcg (50,000 unit) capsule 1 unit PO .WKLY escitalopram oxalate 20 mg tablet 20 mg PO DAILY Protonix 40 mg tablet,delayed release (DR/EC) 40 mg PO BID 30 Days Qty: 60 2RF Discharge Orders: Discharge ED (Routine); Ordered 11/06/22 Ordered By: Olena Leo Referrals: Román Henao MD [Primary Care Provider] - Discharge Diet: Usual diet Discharge Activity: Resume usual activity Activity Restrictions/Additional Instructions: I spoke with poison control. They recommended that you drink plenty of fluids and make sure that you wash her face with soap and water. Your face was washed in ER tonight I recommend to wash it again before bed and then in the morning when you wake up. Continue drinking plenty of water. At this time, you are having no symptoms of burning or pain in your mouth or your throat should you have any new or worsening symptoms return to the ER. I recommend always using gloves and keeping food away from any cleaning products. I recommend having poison control phone number handy should you ever have an encounter again and you can call them right away. 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
== END 2022-11-06 23:28 | disposition home or self-care (01) ==
PROVIDERS: Emergency Provider Nurse Practitioner Family; PCP Family Medicine
DX: T65.891A Toxic effect of other specified substances, accidental (unintentional), initial encounter (principal); F17.210 Nicotine dependence, cigarettes, uncomplicated; I10 Essential (primary) hypertension
CPT/HCPCS: 99283

== ENCOUNTER 2023-01-28 07:56 | Oncology outpatient (recurring) (ONCR) | payer BC, SELFPAY ==
[2023-01-28 09:17] LABS: Basophils # 0.1 10^3/uL (0.0-0.1); Basophils % 0.6 %; Eosinophils # 0.3 10^3/uL (0.0-0.8); Eosinophils % 4.1 %; Hematocrit 35.4 % (37.0-47.0); Hemoglobin 10.5 g/dL (11.5-15.3); Lymphocytes # 2.1 10^3/uL (0.8-4.8); Lymphocytes % 27.3 %; Mean Corpuscular HGB Conc 29.7 g/dL (30.0-36.0); Mean Corpuscular Hemoglobin 22.4 pg (28.0-34.0); Mean Corpuscular Volume 75.5 fl (81-99); Mean Platelet Volume 9.4 fL (7.4-10.4); Monocytes # 0.6 10^3/uL (0.2-0.9); Monocytes % 7.6 %; Neutrophils # 4.69 10^3/uL (1.8-7.7); Neutrophils % 60.1 %; Nucleated Red Blood Cells % 0 %; Platelet Count 401 10^3/cmm (130-400); Red Blood Count 4.69 10^6/uL (4.1-5.3); Red Cell Distribution Width 18.6 % (12.1-15.1); White Blood Count 7.8 10^3/uL (4.0-10.0)
[2023-01-28 09:18] LABS: Reticulocyte % 2.2 % (0.5-2.0)
[2023-01-28 09:40] LABS: Alanine Aminotransferase 15 U/L (0-33); Albumin Level 4.3 g/dL (3.5-5.2); Alkaline Phosphatase 100 U/L (35-105); Anion Gap 12.9 (5-19); Aspartate Amino Transferase 18 U/L (0-32); Blood Urea Nitrogen 10 mg/dL (6-20); Calcium 9.7 mg/dL (8.5-10.5); Carbon Dioxide 26 mmol/L (22-29); Chloride 107 mmol/L (98-107); Ferritin 8 ng/mL (15-150); Globulin 2.8 g/dL (1.3-4.6); Glomerular Filtration Rate 92.7 mL/min (90-130); Glucose 108 mg/dL (65-115); Iron 18 ug/dL (37-145); Osmolality Calculated 292 mOsm/kg (285-295); Potassium 4.9 mmol/L (3.5-5.1); Sodium 141 mmol/L (136-145); Total Bilirubin 0.2 mg/dL (0.15-1.2); Total Protein 7.1 g/dL (6.6-8.7)
== END 2023-02-06 23:59 | disposition home or self-care (01) ==
PROVIDERS: PCP Family Medicine; Visit Provider Internal Medicine Medical Oncology
DX: D64.9 Anemia, unspecified (principal)
CPT/HCPCS: 36415; 80053; 82728; 83540; 85025; 85045

== ENCOUNTER 2023-03-03 08:00 | Oncology outpatient (recurring) (ONCR) | payer BC, SELFPAY ==
[2023-02-24 08:08] VITALS: BP 132/74; PULSE 78; RESP 18; TEMP 36.6; O2SAT 97
[2023-02-24] MEDS: sodium chloride 0.9% 250 ML 75 ML IV (08:29)
[2023-02-24] MEDS: ferric carboxy (IVPB) 750 MG in sodium chloride 0.9% (100 ml) 100 ML 300 MG IV (08:47)
[2023-02-24 09:36] VITALS: BP 141/87; PULSE 80; RESP 18; TEMP 36.6; O2SAT 98
[2023-03-03 08:13] VITALS: BP 129/72; PULSE 88; RESP 18; TEMP 37; O2SAT 98
[2023-03-03] MEDS: ferric carboxy (IVPB) 750 MG in sodium chloride 0.9% (100 ml) 100 ML 345 MG IV (08:28)
[2023-03-03 09:00] VITALS: BP 119/90; PULSE 87; RESP 18; TEMP 37; O2SAT 98
== END 2023-03-09 23:59 | disposition home or self-care (01) ==
PROVIDERS: PCP Family Medicine; Visit Provider Internal Medicine Medical Oncology
DX: D64.9 Anemia, unspecified (principal)
CPT/HCPCS: 96365; J1439; J7050

== ENCOUNTER 2023-03-25 11:44 | Oncology outpatient (recurring) (ONCR) | payer BC, SELFPAY ==
[2023-03-25 11:53] VITALS: BMI 49.6
[2023-03-25 11:54] VITALS: BP 156/94; PULSE 84; RESP 18; TEMP 36.6; O2SAT 98
[2023-03-25 12:07] LABS: Basophils # 0.1 10^3/uL (0.0-0.1); Basophils % 0.7 %; Eosinophils # 0.3 10^3/uL (0.0-0.8); Eosinophils % 3.8 %; Hematocrit 39.5 % (37.0-47.0); Hemoglobin 12.6 g/dL (11.5-15.3); Lymphocytes # 2.1 10^3/uL (0.8-4.8); Lymphocytes % 27.8 %; Mean Corpuscular HGB Conc 31.9 g/dL (30.0-36.0); Mean Corpuscular Hemoglobin 25.7 pg (28.0-34.0); Mean Corpuscular Volume 80.6 fl (81-99); Mean Platelet Volume 9.6 fL (7.4-10.4); Monocytes # 0.6 10^3/uL (0.2-0.9); Monocytes % 7.7 %; Neutrophils # 4.55 10^3/uL (1.8-7.7); Neutrophils % 59.7 %; Nucleated Red Blood Cells % 0 %; Platelet Count 304 10^3/cmm (130-400); Red Cell Distribution Width 24.9 % (12.1-15.1); White Blood Count 7.6 10^3/uL (4.0-10.0)
== END 2023-04-09 23:59 | disposition home or self-care (01) ==
PROVIDERS: PCP Family Medicine; Visit Provider Internal Medicine Medical Oncology
DX: D64.9 Anemia, unspecified (principal)
CPT/HCPCS: 36415; 85025

== ENCOUNTER 2023-04-22 12:03 | Oncology outpatient (recurring) (ONCR) | payer BC, SELFPAY ==
[2023-04-22 12:32] VITALS: BP 134/84; PULSE 81; RESP 16; TEMP 36.6; O2SAT 98
[2023-04-22 12:47] LABS: Basophils # 0.1 10^3/uL (0.0-0.1); Basophils % 0.6 %; Eosinophils # 0.3 10^3/uL (0.0-0.8); Eosinophils % 3.7 %; Lymphocytes # 1.9 10^3/uL (0.8-4.8); Lymphocytes % 24.3 %; Mean Corpuscular HGB Conc 32.9 g/dL (30-55); Mean Corpuscular Hemoglobin 27.1 pg (27-33); Mean Corpuscular Volume 82.4 fl (85-98); Mean Platelet Volume 9.9 fL (7.4-10.4); Monocytes # 0.5 10^3/uL (0.2-0.9); Monocytes % 6.4 %; Neutrophils # 5.13 10^3/uL (1.8-7.7); Neutrophils % 64.7 %; Nucleated Red Blood Cells % 0 %; Platelet Count 304 10^3/cmm (157-399); Red Cell Distribution Width 21.4 % (12.1-15.1); White Blood Count 7.93 10^3/uL (3.29-11.43)
[2023-04-22 13:12] LABS: Alanine Aminotransferase 20 U/L (0-33); Albumin Level 4.1 g/dL (3.5-5.2); Alkaline Phosphatase 96 U/L (35-105); Anion Gap 12.2 (5-19); Aspartate Amino Transferase 15 U/L (0-32); Blood Urea Nitrogen 8 mg/dL (6-20); Calcium 10.1 mg/dL (8.5-10.5); Carbon Dioxide 27 mmol/L (22-29); Chloride 102 mmol/L (98-107); Ferritin 101 ng/mL (15-150); Globulin 2.8 g/dL (1.3-4.6); Glomerular Filtration Rate 92.7 mL/min (90-130); Glucose 84 mg/dL (65-115); Iron 49 ug/dL (37-145); Osmolality Calculated 282 mOsm/kg (285-295); Percent Saturation 18.2 % (20-50); Potassium 4.2 mmol/L (3.5-5.1); Sodium 137 mmol/L (136-145); Total Bilirubin 0.4 mg/dL (0.15-1.2); Total Iron Binding Capacity 269 mcg/dl; Total Protein 6.9 g/dL (6.6-8.7); Unsaturated Iron Binding 220 ug/dL (112-347)
== END 2023-05-09 23:59 | disposition home or self-care (01) ==
PROVIDERS: Nurse Practitioner Family; PCP Family Medicine; Visit Provider Internal Medicine Medical Oncology
DX: D64.9 Anemia, unspecified (principal)
CPT/HCPCS: 36415; 80053; 82728; 83540; 83550; 85025

== ENCOUNTER 2023-07-08 13:12 | Oncology outpatient (recurring) (ONCR) | payer BC, SELFPAY ==
[2023-07-08 13:15] VITALS: BP 142/85; PULSE 98; RESP 16; TEMP 36.7; O2SAT 97
[2023-07-08 13:31] LABS: Basophils # 0.1 10^3/uL (0.0-0.1); Basophils % 0.7 %; Eosinophils # 0.3 10^3/uL (0.0-0.8); Eosinophils % 3.2 %; Lymphocytes # 2.1 10^3/uL (0.8-4.8); Lymphocytes % 25.7 %; Mean Corpuscular HGB Conc 33.5 g/dL (30-55); Mean Corpuscular Hemoglobin 29.1 pg (27-33); Mean Corpuscular Volume 86.8 fl (85-98); Mean Platelet Volume 9.7 fL (7.4-10.4); Monocytes # 0.7 10^3/uL (0.2-0.9); Neutrophils % 62.2 %; Nucleated Red Blood Cells % 0 %; Platelet Count 312 10^3/cmm (157-399); Red Blood Count 4.61 10^6/uL (3.85-5.65); Red Cell Distribution Width 13.9 % (12.1-15.1); White Blood Count 8.21 10^3/uL (3.29-11.43)
[2023-07-08 13:48] LABS: Alanine Aminotransferase 21 U/L (0-33); Albumin Level 4.2 g/dL (3.5-5.2); Alkaline Phosphatase 90 U/L (35-105); Anion Gap 12.8 (5-19); Aspartate Amino Transferase 16 U/L (0-32); Blood Urea Nitrogen 9 mg/dL (6-20); Calcium 10.3 mg/dL (8.5-10.5); Carbon Dioxide 25 mmol/L (22-29); Chloride 104 mmol/L (98-107); Ferritin 61 ng/mL (15-150); Globulin 2.7 g/dL (1.3-4.6); Glomerular Filtration Rate 92.7 mL/min (90-130); Glucose 106 mg/dL (65-115); Iron 52 ug/dL (37-145); Osmolality Calculated 285 mOsm/kg (285-295); Percent Saturation 17.4 % (20-50); Potassium 3.8 mmol/L (3.5-5.1); Sodium 138 mmol/L (136-145); Total Bilirubin 0.5 mg/dL (0.15-1.2); Total Iron Binding Capacity 298 mcg/dl; Total Protein 6.9 g/dL (6.6-8.7); Unsaturated Iron Binding 246 ug/dL (112-347)
== END 2023-07-09 23:59 | disposition home or self-care (01) ==
PROVIDERS: Nurse Practitioner Family; PCP Family Medicine; Visit Provider Internal Medicine Medical Oncology
DX: D64.9 Anemia, unspecified (principal)
CPT/HCPCS: 36415; 80053; 82728; 83540; 83550; 85025

== ENCOUNTER → 2023-09-15 12:11 | Outpatient (BNVA) | payer BC, SELFPAY | PROVIDERS: PCP Family Medicine; Visit Provider Internal Medicine | DX: E55.9 Vitamin D deficiency, unspecified (principal); E83.52 Hypercalcemia; K92.1 Melena | CPT/HCPCS: 36415; 82306; 85025 ==

== ENCOUNTER 2023-09-23 16:52 | Emergency (ER) | payer BC, SELFPAY ==
[2023-09-23 17:00] VITALS: BP 178/87; PULSE 102; PULSE 107; RESP 18; O2SAT 98; O2SAT 99
--- NOTE | 2023-09-23 17:00 | XRR_ITS ---
PROCEDURE INFORMATION: Exam: XR Chest Exam date and time: 09/23/2023 5:08 PM Age: 42 years old Clinical indication: Pain; Chest pressure; Additional info: Chest pain TECHNIQUE: Imaging protocol: Radiologic exam of the chest. Views: 1 view. COMPARISON: CR XR chest 1V portable [id number] 04/07/2021 1:07 AM FINDINGS: Lungs: Unremarkable. No consolidation. Pleural spaces: Unremarkable. No pleural effusion. No pneumothorax. Heart/Mediastinum: Unremarkable. No cardiomegaly. Bones/joints: Unremarkable. XR/XR chest 1V portable [id number] IMPRESSION: No acute findings.
--- NOTE | 2023-09-23 17:00 | ECG_ITS ---
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 Measurements Intervals [place] Rate: 109 P: 40 ND: 136 QRS: 51 QRSD: 90 T: 26 QT: 326 QTc: 441 Interpretive Statements SINUS TACHYCARDIA NONSPECIFIC T-WAVE ABNORMALITY Compared to ECG 04/07/2021 01:36:46 T-wave abnormality now present Sinus rhythm no longer present Electronically Signed On 09-24-2023 12:05:35 INTERN by Carl Rhoades M.D. [email or web address]
--- NOTE | 2023-09-23 17:20 | ED_ITS ---
HPI - Chest Pain 2 General: Chief Complaint: Chest Pain Stated Complaint: chest pains Time Seen by Provider: 09/23/23 16:59 History of Present Illness: Patient presents to the ER with complaints of burning in her left chest that radiates up into her neck and her arm. This been going on for the last several days off and on. Patient does not know anything that makes it better or makes it worse. Patient also complains of numbness in these areas. Patient has never had any heart history per se other than hypertension. Patient says she has had a lot more anxiety and stress in the last several days and thinks this may be the cause of it but wanted to come in to be checked out. Patient denies any shortness of breath, diaphoresis, nausea vomiting fevers chills Review of Systems 2 General: Reports: 10 or more systems reviewed and unremarkable except in HPI and below PFSH ED 2 PFSH: Medical History Viral URI Anxiety and depression GERD (gastroesophageal reflux disease) Atypical chest pain The EKG done on 04/07/2021 revealed a sinus rhythm with a normal ST Ts. Benign essential HTN Chronic pelvic pain in female Morbid obesity with BMI of 45.0-49.9, adult Vapes non-nicotine containing substance Vitamin D deficiency Moderate obstructive sleep apnea Weight gain Hypercalcemia Kidney stones Surgical History History of tonsillectomy and adenoidectomy H/O lithotripsy x2 H/O laparoscopy 11/07/2020- diagnostic laparoscopy performed by Dr. Husain at [facility] Tubal ligation status (~2005) Family History Mother Cancer Diabetes Grandmother Cancer Family/Other Diabetes Aunt Denies family history of CAD (coronary artery disease) Clotting disorder Dementia Hyperlipidemia Psychiatric illness Chronic kidney disease (CKD) Anesthesia complication Bleeding disorder Family history of premature coronary artery disease Lung disease Hypertension Social History Smoking and tobacco/nicotine status: current every day tobacco/nicotine user cigarettes Packs smoked per day: 1 Years cigarettes smoked: 30 Alcohol intake: current Alcohol intake frequency: holidays/special occasions only Alcohol type: hard liquor Substance/Drug Use: never Caregiver/support person: Yes Lives independently: Yes Household members: family Physical Exam 2 Const: COMMON NORMALS: no acute distress, average body habitus, patient oriented x3, no limitations, healthy appearing, alert and well nourished HENMT: COMMON NORMALS: normocephalic, atraumatic, hearing grossly normal bilaterally, external ears normal, Normal external nose present, moist oral mucous membranes and oropharynx normal HEAD & SCALP: normocephalic and atraumatic NOSE: Normal external nose present EXTERNAL EAR: Yes external ears normal Neck/C-Spine: COMMON NORMALS: full ROM, no lymphadenopathy, supple, no meningeal signs, no JVD and Thyroid normal THYROID: Thyroid normal Chest: COMMONS NORMALS: normal inspection of the chest and normal palpation of entire chest wall Resp: COMMON NORMALS: normal respiratory effort, No retractions, No use of accessory muscles and clear to auscultation bilaterally AUSCULTATION: clear to auscultation bilaterally Cardio: COMMON NORMALS: no JVD, regular rate, regular rhythm, S1 normal heart sound present, S2 normal heart sound present, No gallops present (Cardio), No clicks present (Cardio), No murmurs present (Cardio) and No rub (Cardio) R ATE: regular rate RHYTHM: regular rhythm HEART SOUNDS: S1 normal heart sound present and S2 normal heart sound present GI: COMMON NORMALS: Normal to inspection, nondistended, normoactive bowel sounds present, Soft to palpation, non-tender, No hepatosplenomegaly present and no masses PALPATION: Yes Soft to palpation and Yes No hepatosplenomegaly present Neuro: COMMON NORMALS: patient oriented x3 SENSORIUM/ORIENTATION: Yes alert MENINGEAL SIGNS: Yes no meningeal signs Course 2 Vital Signs: Vital signs: Vital Signs Pulse Rate 96 09/23/23 18:54 Respiratory Rate 19 H 09/23/23 18:54 Blood Pressure 154/81 09/23/23 18:54 Pulse Oximetry 97 09/23/23 18:54 Oxygen Delivery Me thod Room Air 09/23/23 18:00 MDM - Chest Pain Medical Decision Making Patient presents to the ER with complaints of left-sided chest pain that can radiated to her shoulder and up into her neck and down her arm. Patient was worked up in a standard cardiac fashion with serial EKGs, serial lab work, chest x-ray, all of which showed no acute cardiac findings. Initial troponin was less than 6, 2-hour troponin was 6, for delta of essentially 0. Is felt that this pain is noncardiac in nature and patient will be discharged and referred back to her PCP for further evaluation testing. Differential Diagnosis Unlikely acute massive pulmonary embolism, acute respiratory failure, acute myocardial infarction, cardiac arrest or sudden cardiac Medical Records I reviewed the patient's medical records. Lab Data I reviewed the patient's lab results. 09/23/23 17:07 09/23/23 17:07 Radiology Impressions Chest X-Ray 09/23/23 17:00 IMPRESSION: No acute findings. Laboratory Results WBC 9.29 10^3/uL (3.29-11.43) 09/23/23 17:07 RBC 4.95 10^6/uL (3.85-5.65) 09/23/23 17:07 Hgb 14.10 g/dL (11.27-16.99) 09/23/23 17:07 Hct 42.3 % (36-47) 09/23/23 17:07 MCV 85.5 fl (85-98) 09/23/23 17:07 MCH 28.5 pg (27-33) 09/23/23 17:07 MCHC 33.3 g/dL (30-55) 09/23/23 17:07 RDW 13.9 % (12.1-15.1) 09/23/23 17:07 Plt Count 359 10^3/cmm (157-399) 09/23/23 17:07 MPV 10.1 fL (7.4-10.4) 09/23/23 17:07 Neut % (Auto) 61.1 % 09/23/23 17:07 Lymph % (Auto) 26.9 % 09/23/23 17:07 [place] % (Auto) 7.6 % 09/23/23 17:07 Eos % (Auto) 3.4 % 09/23/23 17:07 Baso % (Auto) 0.6 % 09/23/23 17:07 Neut # (Auto) 5.66 10^3/uL (1.8-7.7) 09/23/23 17:07 Lymph # (Auto) 2.5 10^3/uL (0.8-4.8) 09/23/23 17:07 [place] # (Auto) 0.7 10^3/uL (0.2-0.9) 09/23/23 17:07 Eos # (Auto) 0.3 10^3/uL (0.0-0.8) 09/23/23 17:07 Baso # (Auto) 0.1 10^3/uL (0.0-0.1) 09/23/23 17:07 Nucleated RBC % (auto) 0 % 09/23/23 17:07 Nucleated RBCs # 0.0 /100WBC 09/23/23 17:07 Sodium 139 mmol/L (136-145) 09/23/23 17:07 Potassium 4.4 mmol/L (3.5-5.1) 09/23/23 17:07 Chloride 103 mmol/L (98-107) 09/23/23 17:07 Carbon Dioxide 25 mmol/L (22-29) 09/23/23 17:07 Anion Gap 15.4 (5-19) 09/23/23 17:07 BUN 9 mg/dL (6-20) 09/23/23 17:07 Creatinine 0.7 mg/dL (0.5-0.9) 09/23/23 17:07 GFR Calculation 92.7 mL/min (90-130) 09/23/23 17:07 Glucose 111 mg/dL (65-115) 09/23/23 17:07 Calculated Osmolality 287 mOsm/kg (285-295) 09/23/23 17:07 Calcium 10.5 mg/dL (8.5-10.5) 09/23/23 17:07 Total Bilirubin 0.4 mg/dL (0.15-1.2) 09/23/23 17:07 AST 21 U/L (0-32) 09/23/23 17:07 ALT 22 U/L (0-33) 09/23/23 17:07 Alkaline Phosphatase 102 U/L (35-105) 09/23/23 17:07 Troponin T Baseline < 6 ng/L (0-10) 09/23/23 17:07 Troponin T 120 Minute 6.00 ng/L (0-10) 09/23/23 18:46 Delta Troponin T 0.54805 ABS# (0-10) 09/23/23 18:46 Total Protein 6.8 g/dL (6.6-8.7) 09/23/23 17:07 Albumin 4.3 g/dL (3.5-5.2) 09/23/23 17:07 Globulin 2.5 g/dL (1.3-4.6) 09/23/23 17:07 All radiology interpretation(s) finalized by discharge EKG Data EKG 1: I personally reviewed and interpreted this EKG as follows: EKG interpretation date: 09/23/23 EKG interpretation time: 16:59 Prior EKG tracings: available for review Interpretation: Ventricular rate 109 bpm, CA interval 136, QRS duration 90, QTc of 390, sinus tachycardia nonspecific T wave abnormality Discharge Plan Discharge Patient Disposition: Home Clinical Impression: Chest pain, non-cardiac Condition: Stable Prescriptions: No Action loratadine [Allergy Relief (loratadine)] 10 mg tablet 10 mg PO DAILY PRN (Reason: allergic symptoms) cholecalciferol (vitamin D3) 1,250 mcg (50,000 unit) wafer PO atorvastatin 10 mg tablet 10 mg PO DAILY amlodipine 2.5 mg tablet 2.5 mg PO DAILY fluticasone propionate 50 mcg/actuation spray,suspension See Rx Instructions .ROUTE .COMPLEX Qty: 48 3RF Dose Instruction: SPRAY 1 SPRAY INTO EACH NOSTRIL TWICE DAILY FOR NASAL CONGESTION Rx Instructions: SPRAY 1 SPRAY INTO EACH NOSTRIL TWICE DAILY FOR NASAL CONGESTION lisinopril 40 mg tablet 40 mg PO DAILY Qty: 90 3RF Injectafer 100 mg iron/2 mL solution 750 mg IV Q7D Qty: 30 0RF cholecalciferol (vitamin D3) 1,250 mcg (50,000 unit) capsule 50,000 unit PO .weekly 60 Days Qty: 60 0RF Ozempic 1 mg/dose (4 mg/3 mL) pen injector 1 mg SUBCUT Q7D Qty: 3 0RF Rx Instructions: 1mg weekly Ozempic 0.25 mg or 0.5 mg (2 mg/3 mL) pen injector 0.5 mg SUBCUT Q7D 30 Days Qty: 3 0RF Rx Instructions: 0.5mg weekly x one month Ozempic 0.25 mg or 0.5 mg (2 mg/3 mL) pen injector 0.25 mg SUBCUT Q7D 30 Days Qty: 3 0RF Rx Instructions: 0.25mg weekly x one month escitalopram oxalate 20 mg tablet 20 mg PO DAILY Discharge Orders: Discharge ED (Routine); Ordered 09/23/23 Ordered By: Fab Galvan Referrals: Román Henao MD [Primary Care Provider] - 1 week Patient Instructions: Chest Pain - Noncardiac Activity Restrictions/Additional Instructions: Your evaluation in ER did not show any acute cardiac cause for your chest pain. It is felt to be noncardiac in nature. Please follow-up with your family practice physician within the next 7 days for further evaluation testing. If your pain worsens or changes please return to the ER. Coding Level of Care Code ED Emergency Veterinary Technician for Mulu Corcoran
[2023-09-23 17:22] LABS: Basophils # 0.1 10^3/uL (0.0-0.1); Basophils % 0.6 %; Eosinophils # 0.3 10^3/uL (0.0-0.8); Eosinophils % 3.4 %; Hematocrit 42.3 % (36-47); Lymphocytes # 2.5 10^3/uL (0.8-4.8); Lymphocytes % 26.9 %; Mean Corpuscular HGB Conc 33.3 g/dL (30-55); Mean Corpuscular Hemoglobin 28.5 pg (27-33); Mean Corpuscular Volume 85.5 fl (85-98); Mean Platelet Volume 10.1 fL (7.4-10.4); Monocytes # 0.7 10^3/uL (0.2-0.9); Monocytes % 7.6 %; Neutrophils # 5.66 10^3/uL (1.8-7.7); Neutrophils % 61.1 %; Nucleated Red Blood Cells % 0 %; Platelet Count 359 10^3/cmm (157-399); Red Blood Count 4.95 10^6/uL (3.85-5.65); Red Cell Distribution Width 13.9 % (12.1-15.1); White Blood Count 9.29 10^3/uL (3.29-11.43)
[2023-09-23 17:30] VITALS: BP 145/76; PULSE 102; O2SAT 97
[2023-09-23 17:43] LABS: Troponin(5th) Baseline < 6 ng/L (0-10)
[2023-09-23 17:46] LABS: Alanine Aminotransferase 22 U/L (0-33); Albumin Level 4.3 g/dL (3.5-5.2); Alkaline Phosphatase 102 U/L (35-105); Blood Urea Nitrogen 9 mg/dL (6-20); Calcium 10.5 mg/dL (8.5-10.5); Carbon Dioxide 25 mmol/L (22-29); Chloride 103 mmol/L (98-107); Globulin 2.5 g/dL (1.3-4.6); Glomerular Filtration Rate 92.7 mL/min (90-130); Glucose 111 mg/dL (65-115); Osmolality Calculated 287 mOsm/kg (285-295); Sodium 139 mmol/L (136-145); Total Bilirubin 0.4 mg/dL (0.15-1.2); Total Protein 6.8 g/dL (6.6-8.7)
[2023-09-23 18:00] VITALS: BP 132/72; PULSE 105; O2SAT 97
[2023-09-23 18:19] LABS: Anion Gap 15.4 (5-19); Aspartate Amino Transferase 21 U/L (0-32); Potassium 4.4 mmol/L (3.5-5.1)
[2023-09-23 18:54] VITALS: BP 154/81; PULSE 96; RESP 19; O2SAT 97
[2023-09-23 19:07] LABS: Troponin 5 2HR Delta 0.00001 ABS# (0-10)
== END 2023-09-23 19:24 | disposition home or self-care (01) ==
PROVIDERS: Emergency Provider Emergency Medicine; PCP Family Medicine
DX: R07.89 Other chest pain (principal); F17.210 Nicotine dependence, cigarettes, uncomplicated; I10 Essential (primary) hypertension
CPT/HCPCS: 36415; 71045; 80053; 84484; 85025; 93005; 99285

== ENCOUNTER 2023-09-25 10:19 | Emergency (ER) | payer OTHER, BC, SELFPAY ==
[2023-09-25 10:46] VITALS: BP 164/85; PULSE 112; RESP 16; TEMP 36.6; O2SAT 97
--- NOTE | 2023-09-25 11:21 | ECG_ITS ---
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 Measurements Intervals [place] Rate: 97 P: 50 CT: 159 QRS: 74 QRSD: 86 T: 46 QT: 328 QTc: 417 Interpretive Statements SINUS RHYTHM Compared to ECG 09/23/2023 16:59:12 Sinus tachycardia no longer present T-wave abnormality no longer present Electronically Signed On 09-25-2023 13:59:56 GARAGE LABORER by Carl Rhoades M.D. [id number]
--- NOTE | 2023-09-25 11:31 | ED_ITS ---
HPI - General Adult General: Chief complaint: General Medical Stated complaint: elevated bp Time Seen by Provider: 09/25/23 11:00 Source: patient Mode of arrival: ambulatory Limitations: no limitations History of Present Illness: 42-year-old female who has a history of hypertension she states that she had a gas leak at work so EMS arrived and was triaging people she states her blood pressure was over 200s that sent her here she states her blood pressure has been running higher than he typically has over the last few weeks she has no medical complaints at this time denies any headache or chest pain. Associated symptoms: Deny chest pain, dyspnea, headache(s), nausea, rash or vomiting Review of Systems Const: Denies: fever(s), chills, body aches or change in appetite ENMT: Denies: throat pain or dental pain Card: Denies: chest pain Resp: Denies: dyspnea GI: Denies: abdominal pain, nausea, vomiting or diarrhea Musc: Denies: neck pain or back pain Skin/Breast: Denies: rash Neuro: Denies: headache(s) PFSH ED PFSH: Medical History Viral URI Anxiety and depression GERD (gastroesophageal reflux disease) Atypical chest pain The EKG done on 04/07/2021 revealed a sinus rhythm with a normal ST Ts. Benign essential HTN Chronic pelvic pain in female Morbid obesity with BMI of 45.0-49.9, adult Vapes non-nicotine containing substance Vitamin D deficiency Moderate obstructive sleep apnea Weight gain Hypercalcemia Kidney stones Surgical History History of tonsillectomy and adenoidectomy H/O lithotripsy x2 H/O laparoscopy 11/07/2020- diagnostic laparoscopy performed by Dr. Husain at [facility] Tubal ligation status (~2005) Family History Mother Cancer Diabetes Grandmother Cancer Family/Other Diabetes Aunt Denies family history of CAD (coronary artery disease) Clotting disorder Dementia Hyperlipidemia Psychiatric illness Chronic kidney disease (CKD) Anesthesia complication Bleeding disorder Family history of premature coronary artery disease Lung disease Hypertension Social History Smoking and tobacco/nicotine status: current every day tobacco/nicotine user cigarettes Packs smoked per day: 1 Years cigarettes smoked: 30 Alcohol intake: current Alcohol intake frequency: holidays/special occasions only Alcohol type: hard liquor Substance/Drug Use: never Caregiver/support person: Yes Lives independently: Yes Household members: family Physical Exam Const: COMMON NORMALS: no acute distress, patient oriented x3 and healthy appearing HENMT: COMMON NORMALS: normocephalic and atraumatic HEAD & SCALP: normocephalic and atraumatic Neck/C-Spine: COMMON NORMALS: full ROM and supple Chest: COMMONS NORMALS: normal inspection of the chest Resp: COMMON NORMALS: normal respiratory effort Cardio: COMMON NORMALS: regular rate, regular rhythm and No murmurs present (Cardio) RATE: regular rate RHYTHM: regular rhythm Extremity: COMMON NORMALS: normal to inspection and full ROM Neuro: COMMON NORMALS: patient oriented x3, moves all extremities and no focal motor deficits Psych: COMMON NORMALS: mental status grossly normal, Normal thought process present and cooperative THOUGHT PROCESS: Normal thought process present Skin: COMMON NORMALS: no rashes or lesions noted and no wounds GENERAL SKIN EXAM: no rashes or lesions noted Course Vital Signs: Vital signs: Vital Signs Temperature 97.9 F 09/25/23 10:46 Pulse Rate 112 H 09/25/23 10:46 Respiratory Rate 16 09/25/23 10:46 Blood Pressure 164/85 09/25/23 10:46 Pulse Oximetry 97 09/25/23 10:46 Oxygen Delivery Me thod Room Air 09/25/23 10:46 MDM - General Adult Medical Decision Making Patient presents here with hypertension she has no complaints here EKG is normal we will increase her Norvasc from 2.5-5 she has follow-up next week. Medical Records I reviewed the patient's medical records. All radiology interpretation(s) finalized by discharge EKG Data EKG 1: I personally reviewed and interpreted this EKG as follows: EKG interpretation date: 09/25/23 EKG interpretation time: 11:39 Interpretation: nsr hr [address] or t wave abnormalities qrs 86 qtc 382 Discharge Plan Discharge Patient Disposition: Home Clinical Impression: Benign essential HTN Condition: Stable Prescriptions: Changed amlodipine 2.5 mg tablet 5 mg PO DAILY Qty: 30 0RF No Action loratadine [Allergy Relief (loratadine)] 10 mg tablet 10 mg PO DAILY PRN (Reason: allergic symptoms) cholecalciferol (vitamin D3) 1,250 mcg (50,000 unit) wafer PO atorvastatin 10 mg tablet 10 mg PO DAILY fluticasone propionate 50 mcg/actuation spray,suspension See Rx Instructions .ROUTE .COMPLEX Qty: 48 3RF Dose Instruction: SPRAY 1 SPRAY INTO EACH NOSTRIL TWICE DAILY FOR NASAL CONGESTION Rx Instructions: SPRAY 1 SPRAY INTO EACH NOSTRIL TWICE DAILY FOR NASAL CONGESTION lisinopril 40 mg tablet 40 mg PO DAILY Qty: 90 3RF Injectafer 100 mg iron/2 mL solution 750 mg IV Q7D Qty: 30 0RF cholecalciferol (vitamin D3) 1,250 mcg (50,000 unit) capsule 50,000 unit PO .weekly 60 Days Qty: 60 0RF Ozempic 1 mg/dose (4 mg/3 mL) pen injector 1 mg SUBCUT Q7D Qty: 3 0RF Rx Instructions: 1mg weekly Ozempic 0.25 mg or 0.5 mg (2 mg/3 mL) pen injector 0.5 mg SUBCUT Q7D 30 Days Qty: 3 0RF Rx Instructions: 0.5mg weekly x one month Ozempic 0.25 mg or 0.5 mg (2 mg/3 mL) pen injector 0.25 mg SUBCUT Q7D 30 Days Qty: 3 0RF Rx Instructions: 0.25mg weekly x one month escitalopram oxalate 20 mg tablet 20 mg PO DAILY Discharge Orders: Discharge ED (Routine); Ordered 09/25/23 Ordered By: Aida Preston Referrals: Román Henao MD [Primary Care Provider] - 1-3 days Discharge Diet: Advance as tolerated Discharge Activity: Resume usual activity Patient Instructions: Hypertension (ED) Coding Level of Care Code ED Rubber Roller Grinder Operator for Mulu Corcoran
== END 2023-09-25 12:24 | disposition home or self-care (01) ==
PROVIDERS: Emergency Provider Emergency Medicine; PCP Family Medicine
DX: I10 Essential (primary) hypertension (principal); F17.210 Nicotine dependence, cigarettes, uncomplicated
CPT/HCPCS: 93005; 99283

== ENCOUNTER 2023-10-08 12:40 | Oncology outpatient (recurring) (ONCR) | payer BC, SELFPAY ==
[2023-10-08 13:07] LABS: Basophils # 0.1 10^3/uL (0.0-0.1); Basophils % 0.6 %; Eosinophils # 0.3 10^3/uL (0.0-0.8); Eosinophils % 3.3 %; Hematocrit 41.1 % (36-47); Lymphocytes # 2.2 10^3/uL (0.8-4.8); Lymphocytes % 26.3 %; Mean Corpuscular HGB Conc 32.4 g/dL (30-55); Mean Corpuscular Hemoglobin 27.6 pg (27-33); Mean Corpuscular Volume 85.3 fl (85-98); Mean Platelet Volume 9.5 fL (7.4-10.4); Monocytes # 0.5 10^3/uL (0.2-0.9); Monocytes % 6.1 %; Neutrophils # 5.29 10^3/uL (1.8-7.7); Neutrophils % 63.2 %; Nucleated Red Blood Cells % 0 %; Platelet Count 356 10^3/cmm (157-399); Red Blood Count 4.82 10^6/uL (3.85-5.65); Red Cell Distribution Width 13.9 % (12.1-15.1); White Blood Count 8.37 10^3/uL (3.29-11.43)
[2023-10-08 13:52] LABS: Alanine Aminotransferase 18 U/L (0-33); Alkaline Phosphatase 111 U/L (35-105); Anion Gap 13.6 (5-19); Aspartate Amino Transferase 22 U/L (0-32); Blood Urea Nitrogen 7 mg/dL (6-20); Carbon Dioxide 26 mmol/L (22-29); Chloride 107 mmol/L (98-107); Creatinine Clr Calc Pharmacy 141.2913; Ferritin 21 ng/mL (15-150); Globulin 2.9 g/dL (1.3-4.6); Glomerular Filtration Rate 79.4 mL/min (90-130); Glucose 139 mg/dL (65-115); Iron 64 ug/dL (37-145); Osmolality Calculated 294 mOsm/kg (285-295); Percent Saturation 19.2 % (20-50); Potassium 4.6 mmol/L (3.5-5.1); Sodium 142 mmol/L (136-145); Total Bilirubin 0.4 mg/dL (0.15-1.2); Total Iron Binding Capacity 333 mcg/dl; Total Protein 6.9 g/dL (6.6-8.7); Unsaturated Iron Binding 269 ug/dL (112-347)
[2023-10-08 14:34] LABS: Chol HDL Ratio 4.67 mg/dL (0.0-4.40); Cholesterol 154 mg/dL (0-200); HDL Cholesterol 33 mg/dL (60-100); LDL Cholesterol Calculated 93 mg/dL (50-129); LDL HDL Ratio 2.82 RATIO (0.00-3.22); Triglycerides 140 mg/dL (0-150)
== END 2023-10-08 23:59 | disposition home or self-care (01) ==
PROVIDERS: Nurse Practitioner Family; PCP Family Medicine; Visit Provider Internal Medicine Medical Oncology
DX: D64.9 Anemia, unspecified (principal); E78.5 Hyperlipidemia, unspecified
CPT/HCPCS: 36415; 80053; 80061; 82728; 83540; 83550; 85025

== ENCOUNTER 2023-10-08 13:04 | Outpatient (CLI) | payer BC, SELFPAY ==
[2023-10-08 14:13] LABS: Thyroid Stimulating Hormone 0.93 uIU/mL (0.27-4.20); Vitamin B12 250 pg/mL (232-1245)
[2023-10-08 14:21] LABS: Estmated Average Glucose 114; Hemoglobin A1C 5.6 % (4.0-6.0)
[2023-10-08 14:25] LABS: Folate Level 9.8 ng/mL (4.8-37.3)
[2023-10-08 14:36] LABS: Free T4 Free Thyroxine 1.14 ng/dL (0.82-1.77)
== END 2023-10-08 13:05 | disposition home or self-care (01) ==
LOC: LAB 13:06
PROVIDERS: PCP Family Medicine; Visit Provider Internal Medicine
DX: E55.9 Vitamin D deficiency, unspecified (principal)
CPT/HCPCS: 36415; 82310; 82607; 82746; 83036; 83970; 84439; 84443

== ENCOUNTER 2023-10-13 15:22 | Outpatient (CLI) | payer BC, SELFPAY ==
[2023-10-13 17:02] LABS: 25 Hydroxy Vitamin D 34 ng/mL (30-100)
== END 2023-10-13 15:23 | disposition home or self-care (01) ==
LOC: LAB 15:23
PROVIDERS: PCP Family Medicine; Visit Provider Internal Medicine
DX: E55.9 Vitamin D deficiency, unspecified (principal)
CPT/HCPCS: 36415; 82306

== ENCOUNTER → 2023-12-03 09:08 | Outpatient (BNVA) | payer BC, SELFPAY | PROVIDERS: PCP Family Medicine; Visit Provider Obstetrics & Gynecology | DX: Z12.4 Encounter for screening for malignant neoplasm of cervix (principal) | CPT/HCPCS: 87624 ==

== ENCOUNTER 2023-12-07 13:19 | Oncology outpatient (recurring) (ONCR) | payer BC, SELFPAY ==
[2023-12-07 13:39] LABS: Basophils # 0.1 10^3/uL (0.0-0.1); Basophils % 0.8 %; Eosinophils # 0.3 10^3/uL (0.0-0.8); Eosinophils % 3.4 %; Lymphocytes # 2.4 10^3/uL (0.8-4.8); Lymphocytes % 26.5 %; Mean Corpuscular HGB Conc 32.5 g/dL (30-55); Mean Corpuscular Hemoglobin 27.3 pg (27-33); Mean Platelet Volume 10.2 fL (7.4-10.4); Monocytes # 0.5 10^3/uL (0.2-0.9); Neutrophils # 5.83 10^3/uL (1.8-7.7); Nucleated Red Blood Cells % 0 %; Platelet Count 350 10^3/cmm (157-399); Red Blood Count 4.76 10^6/uL (3.85-5.65); Red Cell Distribution Width 14.9 % (12.1-15.1); White Blood Count 9.12 10^3/uL (3.29-11.43)
[2023-12-07 13:59] LABS: Alanine Aminotransferase 16 U/L (0-33); Alkaline Phosphatase 112 U/L (35-105); Anion Gap 12.8 (5-19); Aspartate Amino Transferase 16 U/L (0-32); Blood Urea Nitrogen 10 mg/dL (6-20); Calcium 9.4 mg/dL (8.5-10.5); Carbon Dioxide 25 mmol/L (22-29); Chloride 105 mmol/L (98-107); Ferritin 10 ng/mL (15-150); Globulin 2.9 g/dL (1.3-4.6); Glomerular Filtration Rate 79.4 mL/min (90-130); Glucose 124 mg/dL (65-115); Iron 31 ug/dL (37-145); Osmolality Calculated 286 mOsm/kg (285-295); Percent Saturation 10.6 % (20-50); Potassium 4.8 mmol/L (3.5-5.1); Sodium 138 mmol/L (136-145); Total Bilirubin 0.2 mg/dL (0.15-1.2); Total Iron Binding Capacity 290 mcg/dl; Total Protein 6.9 g/dL (6.6-8.7); Unsaturated Iron Binding 259 ug/dL (112-347)
== END 2023-12-08 23:59 | disposition home or self-care (01) ==
LOC: ONCMED 13:19
PROVIDERS: Nurse Practitioner Family; PCP Family Medicine; Visit Provider Internal Medicine Medical Oncology
DX: D64.9 Anemia, unspecified (principal); K92.1 Melena
CPT/HCPCS: 36415; 80053; 82728; 83540; 83550; 85025

== ENCOUNTER 2023-12-16 14:53 | Oncology outpatient (recurring) (ONCR) | payer BC, SELFPAY ==
--- NOTE | 2023-12-16 15:30 | MM_ITS ---
WS: [id number] BILATERAL 3D TOMOSYNTHESIS DIGITAL SCREENING MAMMOGRAPHY WITH CAD CLINICAL INFORMATION: Z12.31 - Encounter for screening mammogram for malignant ... HISTORY: Screening mammogram. No current complaints. COMPARISON: Baseline TECHNIQUE: Bilateral CC and MLO views. FINDINGS: Scattered fibroglandular densities bilaterally. No suspicious focal mass, asymmetry, calcifications, or architectural distortion. No evidence of malignancy. A few tiny incidental punctate calcifications . MM/[id number] IMPRESSION: BI-RADS: 2-Benign FOLLOW UP: 1 Year Follow-up Recommend return to annual screening mammography.
== END 2024-01-08 23:59 | disposition home or self-care (01) ==
LOC: RAD 14:53 → ONCMED 12-28 15:15
PROVIDERS: PCP Family Medicine; Visit Provider Internal Medicine Medical Oncology
DX: Z12.31 Encounter for screening mammogram for malignant neoplasm of breast; Z53.9 Procedure and treatment not carried out, unspecified reason
CPT/HCPCS: 77063; 77067

== ENCOUNTER 2023-12-18 11:09 | Outpatient (CLI) | payer BC, SELFPAY | END 2023-12-18 11:10 | disposition home or self-care (01) | LOC: LAB 11:12 | PROVIDERS: PCP Family Medicine; Visit Provider Obstetrics & Gynecology | DX: R63.5 Abnormal weight gain (principal); Z13.220 Encounter for screening for lipoid disorders; Z13.1 Encounter for screening for diabetes mellitus | CPT/HCPCS: 36415; 86160; 86162; 86235; 86255; 86376 ==

== ENCOUNTER 2023-12-23 07:18 | Emergency (ER) | payer BC, SELFPAY ==
[2023-12-23 07:25] VITALS: BP 145/81; PULSE 102; RESP 16; TEMP 36.5; O2SAT 96; BMI 48.0
--- NOTE | 2023-12-23 07:34 | ED_ITS ---
HPI - Abdominal Pain 2 General: Chief Complaint: Abdominal Pain Stated Complaint: N/V/D, right side and abd pain Time Seen by Provider: 12/23/23 07:21 Source: patient Mode of arrival: ambulatory History of Present Illness: 42-year-old female presents emergency ro om complaining nausea vomiting and diarrhea began 3 days ago. She has had some fever and chills at times denies dysuria urgency or frequency with the diarrhea she has had some irritation around the rectum and a little bit of blood. No active bleeding only present with bowel movements. She has some right-sided flank pain. She has had kidney stones in the past requiring lithotripsy. Her gallbladder is still intact. MD elicited complaint: abdominal pain and flank pain (Right) Pertinent past history: kidney stones Onset (ago): day(s) (3) Pain Consistency: constant Location: RUQ and R flank Severity: moderate Quality: cramping Exacerbating factors: eating Relieving factors: nothing Associated Symptoms: Reports bloating, change in stool character, chills, GI cramping, diarrhea, fever(s), nausea and vomiting; Denies anorexia, belching, change in bowel habits, coffee ground emesis, constipation, dyspepsia, dysuria, excessive flatus, heartburn, hematochezia, hematuria, hematemesis, fecal incontinence, loose stools, melena, poor appetite and syncope Review of Systems 2 Const: Reports: fever(s) and chills Card: Denies: chest pain or syncope Resp: Denies: dyspnea GI: Reports: abdominal pain, nausea, vomiting, diarrhea, bloating, GI cramping and change in stool character; Denies: hematemesis, coffee ground emesis, heartburn, constipation, belching, excessive flatus, fecal incontinence, change in bowel habits, hematochezia or melena : Reports: flank pain (right); Denies: dysuria, urinary frequency, urinary urgency or hematuria Musc: Denies: neck pain or back pain Skin/Breast: Denies: rash PFSH ED 2 PFSH: Medical History Viral URI Anxiety and depression GERD (gastroesophageal reflux disease) Atypical chest pain The EKG done on 04/07/2021 revealed a sinus rhythm with a normal ST Ts. Benign essential HTN Chronic pelvic pain in female Morbid obesity with BMI of 45.0-49.9, adult Vapes non-nicotine containing substance Vitamin D deficiency Moderate obstructive sleep apnea Weight gain Hypercalcemia Kidney stones Surgical History History of tonsillectomy and adenoidectomy H/O lithotripsy x2 H/O laparoscopy 11/07/2020- diagnostic laparoscopy performed by Dr. Husain at [facility] Tubal ligation status (~2005) Family History Mother Cancer Diabetes Grandmother Cancer Family/Other Diabetes Aunt Denies family history of CAD (coronary artery disease) Clotting disorder Dementia Hyperlipidemia Psychiatric illness Chronic kidney disease (CKD) Anesthesia complication Bleeding disorder Family history of premature coronary artery disease Lung disease Hypertension Social History Smoking and tobacco/nicotine status: unknown if used tobacco/nicotine Alcohol intake: current Alcohol intake frequency: holidays/special occasions only Alcohol type: hard liquor Substance/Drug Use: never Caregiver/support person: Yes Lives independently: Yes Household members: family Physical Exam 2 Const: COMMON NORMALS: no acute distress GENERAL APPEARANCE: cooperative and comfortable ORIENTATION/CONSCIOUSNESS: Yes awake, Yes oriented to person, Yes oriented to place and Yes oriented to time HENMT: COMMON NORMALS: normocephalic, atraumatic and hearing grossly normal bilaterally HEAD & SCALP: normocephalic and atraumatic Resp: COMMON NORMALS: normal respiratory effort, No retractions, No use of accessory muscles and clear to auscultation bilaterally AUSCULTATION: clear to auscultation bilaterally Cardio: COMMON NORMALS: regular rate, regular rhythm and No murmurs present (Cardio) RATE: regular rate RHYTHM: regular rhythm GI: COMMON NORMALS: Soft to palpation and No hepatosplenomegaly present A USCULTATION: Yes normoactive bowel sounds PALPATION: Yes Soft to palpation, No Tenderness to palpation present (GI), No Guarding due to palpation present (GI) and Yes No hepatosplenomegaly present Extremity: COMMON NORMALS: normal to inspection, capillary refill normal, no clubbing, cyanosis or edema, no calf tenderness and no pedal edema Neuro: SENSORIUM/ORIENTATION: Yes oriented to person, Yes oriented to place and Yes oriented to time Skin: COMMON NORMALS: no rashes or lesions noted GENERAL SKIN EXAM: no rashes or lesions noted Course 2 Vital Signs: Vital signs: Vital Signs Temperature 97.7 F 12/23/23 07:25 Pulse Rate 94 12/23/23 09:28 Respiratory Rate 16 12/23/23 07:25 Blood Pressure 127/98 12/23/23 09:28 Pulse Oximetry 94 12/23/23 09:28 Oxygen Delivery Me thod Room Air 12/23/23 07:25 MDM - Abdominal Pain Medical Decision Making CT shows mesenteric lymphadenopathy otherwise no significant abnormality urine did not show signs of cystitis no sign of nephrolithiasis on the CT will discharge home she has colonoscopy scheduled. Follow-up with primary care if symptoms persist may need further evaluation. Notation the radiologist report that lymphadenopathy had been noted previously. Medical Records I reviewed the patient's medical records. Lab Data I reviewed the patient's lab results. 12/23/23 07:42 12/23/23 07:42 Labs/Radiology: Radiology Impressions Abdomen/Pelvis CT 12/23/23 07:45 IMPRESSION: 1. No hydronephrosis in either kidney. No obstructing renal or ureteral calculi. 2. Nonobstructing tiny subcentimeter calyceal tip calculi bilaterally. 3. Enlarged nonspecific central mesenteric lymph nodes similar compared to the prior studies. 4. Mild hepatomegaly. 5. No other acute findings. Laboratory Results WBC 6.17 10^3/uL (3.29-11.43) 12/23/23 07:42 RBC 4.96 10^6/uL (3.85-5.65) 12/23/23 07:42 Hgb 13.60 g/dL (11.27-16.99) 12/23/23 07:42 Hct 40.5 % (36-47) 12/23/23 07:42 MCV 81.7 fl (85-98) L 12/23/23 07:42 MCH 27.4 pg (27-33) 12/23/23 07:42 MCHC 33.6 g/dL (30-55) 12/23/23 07:42 RDW 15.3 % (12.1-15.1) H 12/23/23 07:42 Plt Count 308 10^3/cmm (157-399) 12/23/23 07:42 MPV 10.5 fL (7.4-10.4) H 12/23/23 07:42 Neut % (Auto) 61.4 % 12/23/23 07:42 Lymph % (Auto) 23.5 % 12/23/23 07:42 [place] % (Auto) 8.3 % 12/23/23 07:42 Eos % (Auto) 5.5 % 12/23/23 07:42 Baso % (Auto) 0.8 % 12/23/23 07:42 Neut # (Auto) 3.79 10^3/uL (1.8-7.7) 12/23/23 07:42 Lymph # (Auto) 1.5 10^3/uL (0.8-4.8) 12/23/23 07:42 [place] # (Auto) 0.5 10^3/uL (0.2-0.9) 12/23/23 07:42 Eos # (Auto) 0.3 10^3/uL (0.0-0.8) 12/23/23 07:42 Baso # (Auto) 0.1 10^3/uL (0.0-0.1) 12/23/23 07:42 Nucleated RBC % (auto) 0 % 12/23/23 07:42 Nucleated RBCs # 0.0 /100WBC 12/23/23 07:42 Sodium 141 mmol/L (136-145) 12/23/23 07:42 Potassium 3.9 mmol/L (3.5-5.1) 12/23/23 07:42 Chloride 107 mmol/L (98-107) 12/23/23 07:42 Carbon Dioxide 23 mmol/L (22-29) 12/23/23 07:42 Anion Gap 14.9 (5-19) 12/23/23 07:42 BUN 8 mg/dL (6-20) 12/23/23 07:42 Creatinine 0.7 mg/dL (0.5-0.9) 12/23/23 07:42 GFR Calculation 92.7 mL/min (90-130) 12/23/23 07:42 Glucose 105 mg/dL (65-115) 12/23/23 07:42 Calculated Osmolality 291 mOsm/kg (285-295) 12/23/23 07:42 Calcium 9.7 mg/dL (8.5-10.5) 12/23/23 07:42 Total Bilirubin 0.3 mg/dL (0.15-1.2) 12/23/23 07:42 AST 30 U/L (0-32) 12/23/23 07:42 ALT 41 U/L (0-33) H 12/23/23 07:42 Alkaline Phosphatase 86 U/L (35-105) 12/23/23 07:42 Total Protein 6.8 g/dL (6.6-8.7) 12/23/23 07:42 Albumin 3.8 g/dL (3.5-5.2) 12/23/23 07:42 Globulin 3.0 g/dL (1.3-4.6) 12/23/23 07:42 Lipase 49 U/L (13-60) 12/23/23 07:42 HCG, Qual Negative (Negative) 12/23/23 07:42 Urine Color Dark yellow (Yellow) 12/23/23 07:56 Urine Appearance Clear (CLEAR) 12/23/23 07:56 Urine pH 5 (5-7) 12/23/23 07:56 Ur Specific Millis 1.025 (1.005-1.030) 12/23/23 07:56 Urine Protein Neg (Negative) 12/23/23 07:56 Urine Glucose (UA) Norm (Normal) 12/23/23 07:56 Urine Ketones Negative (Negative) 12/23/23 07:56 Urine Blood 3+ (Negative) H 12/23/23 07:56 Urine Nitrate Negative (Negative) 12/23/23 07:56 Urine Bilirubin Neg (Negative) 12/23/23 07:56 Urine Urobilinogen 4 mg/dL (Negative) H 12/23/23 07:56 Ur Leukocyte Esterase Negative (Negative) 12/23/23 07:56 Urine RBC 0-4 /hpf (0-2) H 12/23/23 07:56 Urine WBC 0-4 /hpf (0-5) H 12/23/23 07:56 Ur Squamous Epith Cells 0-4 /hpf (0-5) H 12/23/23 07:56 Calcium Oxalate Crystal 15-25 /hpf H 12/23/23 07:56 Amorphous Sediment Not Reportable 12/23/23 07:56 Urine Bacteria Trace /hpf (NONE) 12/23/23 07:56 Urine Mucus 2+ /hpf 12/23/23 07:56 All radiology interpretation(s) finalized by discharge Discharge Plan Discharge Patient Disposition: Home Clinical Impression: Mesenteric lymphadenopathy, Abdominal pain Condition: Stable Prescriptions: New promethazine 25 mg tablet 25 mg PO Q6H PRN (Reason: nausea and vomiting) Qty: 20 0RF No Action loratadine [Allergy Relief (loratadine)] 10 mg tablet 10 mg PO DAILY PRN (Reason: allergic symptoms) omeprazole 10 mg capsule,delayed release(DR/EC) 10 mg PO DAILY Injectafer 100 mg iron/2 mL solution 750 mg IV Q7D Qty: 30 0RF atorvastatin 10 mg tablet 10 mg PO QPM fluticasone propionate 50 mcg/actuation spray,suspension See Rx Instructions .ROUTE .COMPLEX PRN (Reason: ALLERIGC RHINITIS) Dose Instruction: SPRAY 1 SPRAY INTO EACH NOSTRIL TWICE DAILY FOR NASAL CONGESTION Rx Instructions: SPRAY 1 SPRAY INTO EACH NOSTRIL TWICE DAILY FOR NASAL CONGESTION PRN; cholecalciferol (vitamin D3) 1,250 mcg (50,000 unit) capsule 50,000 unit PO .weekly 60 Days Qty: 60 0RF Victoza 3-Aidan 0.6 mg/0.1 mL (18 mg/3 mL) pen injector See Rx Instructions SUBCUT DAILY 90 Days Qty: 27 0RF Rx Instructions: subcutaneously daily; 0.6mg daily for 1 week, 1.2 daily for 1 week and then 1.8mg daily amlodipine 10 mg tablet 10 mg PO QPM lisinopril 40 mg tablet 40 mg PO QPM ketoconazole 2 % shampoo See Rx Instructions .ROUTE .COMPLEX Rx Instructions: WASH TO SCALP 2-3 TIMES A WEEK SET 5 MINS BEFORE RINSING NEEDED FOR PSORIASIS. triamcinolone acetonide 0.5 % cream 1 applic TOPICAL BID PRN (Reason: Skin Irritation) triamcinolone acetonide 0.1 % ointment 1 applic TOPICAL DIRECTED PRN (Reason: Skin Irritation) nitroglycerin 0.4 mg tablet, sublingual See Rx Instructions .ROUTE .COMPLEX Rx Instructions: PUT 1 TAB UNDER TONGUE DIRECTED NEEDED. REPEAT EVERY 5 MIN FOR 3 DOSES. CALL 911 IF NOT BETTER clobetasol 0.05 % solution See Rx Instructions .ROUTE .COMPLEX Rx Instructions: APPLY TO SCALP TWICE DAILY NEEDED FOR PSORIASIS. Discharge Orders: Discharge ED (Routine); Ordered 12/23/23 Ordered By: Edgardo Trent Referrals: Román Henao MD [Primary Care Provider] - Discharge Diet: Clear Liquid Discharge Activity: Resume usual activity Patient Instructions: Abdominal Pain (ED), Opioid Safety, Pain Management Activity Restrictions/Additional Instructions: Thank you for choosing [facility] for your healthcare needs today. Please realize this is an emergency room and that we are providing you with a medical screening exam and this may not be complete and all inclusive of all the testing and or work up that you may need to determine your ailment or severity of your illness. It is very important that you follow up as instructed or that you return to the Emergency Department should you have concerns or if your condition changes or worsens in any way. You are seen emergency room with complaint of abdominal pain. Your white count was normal. CT of the abdomen shows enlarged mesenteric lymph nodes but no other significant abnormality. Follow-up with a colonoscopy as scheduled and with your primary care doctor you can use promethazine as needed for nausea or vomiting. Clear liquid diet for the next 24 to 48 hours and advance as tolerated Coding Level of Care Code ED Slot Floorman for Mulu Corcoran
[2023-12-23] MEDS: ondansetron 2 mg/ML SDV 2 mL 4 MG IVP (07:43)
[2023-12-23] MEDS: sodium chloride 0.9% 1,000 ML 999 ML IV (07:43)
--- NOTE | 2023-12-23 07:45 | CT_ITS ---
WS: [id number] CT ABDOMEN PELVIS TECHNIQUE: Noncontrast CT of the abdomen and pelvis with coronal and sagittal reformatted images. CLINICAL INFORMATION: flank pain COMPARISON: CT 2020 DLP: 1162.[address] scans at [facility] use at least one of these dose optimization techniques: automated e xposure control; mA and/or kV adjustment per patient size (includes targeted exams where dose is matc hed to clinical indication); or iterative reconstruction. FINDINGS: Mild hepatomegaly lung bases are well aerated. Small esophageal hiatal hernia. Fluid and food product s in the distended stomach. Normal noncontrast spleen. Noncontrast pancreas is normal. Adrenal glands are normal. No obstructing renal or ureteral calculi. No hydronephrosis in either kidney. Tiny nonob structing calyceal tip calculi bilaterally. Prominent central mesenteric lymph nodes unchanged compar ed to the prior studies. This is nonspecific but may be inflammatory or reactive. Gallbladder is cont racted. No evidence of small or large bowel obstruction. Tiny fat-containing umbilical hernia. Lobulated nonc ontrast uterus similar to previous. CT/CT kidney stone [id number] IMPRESSION: 1. No hydronephrosis in either kidney. No obstructing renal or ureteral calcul i. 2. Nonobstructing tiny subcentimeter calyceal tip calculi bilaterally. 3. Enlarged nonspecific central mesenteric lymph nodes similar compared to the prior studies. 4. Mild hepatomegaly. 5. No other acute findings.
[2023-12-23 08:01] LABS: Basophils # 0.1 10^3/uL (0.0-0.1); Basophils % 0.8 %; Eosinophils # 0.3 10^3/uL (0.0-0.8); Eosinophils % 5.5 %; Hematocrit 40.5 % (36-47); Lymphocytes # 1.5 10^3/uL (0.8-4.8); Lymphocytes % 23.5 %; Mean Corpuscular HGB Conc 33.6 g/dL (30-55); Mean Corpuscular Hemoglobin 27.4 pg (27-33); Mean Corpuscular Volume 81.7 fl (85-98); Mean Platelet Volume 10.5 fL (7.4-10.4); Monocytes # 0.5 10^3/uL (0.2-0.9); Monocytes % 8.3 %; Neutrophils # 3.79 10^3/uL (1.8-7.7); Neutrophils % 61.4 %; Nucleated Red Blood Cells % 0 %; Platelet Count 308 10^3/cmm (157-399); Red Blood Count 4.96 10^6/uL (3.85-5.65); Red Cell Distribution Width 15.3 % (12.1-15.1); White Blood Count 6.17 10^3/uL (3.29-11.43)
[2023-12-23 08:14] LABS: Alanine Aminotransferase 41 U/L (0-33); Albumin Level 3.8 g/dL (3.5-5.2); Alkaline Phosphatase 86 U/L (35-105); Anion Gap 14.9 (5-19); Aspartate Amino Transferase 30 U/L (0-32); Blood Urea Nitrogen 8 mg/dL (6-20); Calcium 9.7 mg/dL (8.5-10.5); Carbon Dioxide 23 mmol/L (22-29); Chloride 107 mmol/L (98-107); Creatinine Clr Calc Pharmacy 156.2738; Glomerular Filtration Rate 92.7 mL/min (90-130); Glucose 105 mg/dL (65-115); Lipase 49 U/L (13-60); Osmolality Calculated 291 mOsm/kg (285-295); Potassium 3.9 mmol/L (3.5-5.1); Sodium 141 mmol/L (136-145); Total Bilirubin 0.3 mg/dL (0.15-1.2); Total Protein 6.8 g/dL (6.6-8.7)
[2023-12-23 08:25] LABS: HCG, Serum Qual Negative (Negative)
[2023-12-23 08:25] LABS: Protein Urine Neg (Negative); Specific Gravity, Urine 1.025 (1.005-1.030); Urine Appearance Clear (CLEAR); Urine Color Dark Yellow (Yellow); pH Urine 5 (5-7)
[2023-12-23 08:26] LABS: Add Urine Microscopic? YES; Bilirubin Urine Neg (Negative); Blood Urine 3+ (Negative); Glucose Urine UA Norm (Normal); Ketones Urine Negative (Negative); Leukocyte Esterase Urine Negative (Negative); Nitrate Urine Negative (Negative); Urobilinogen Urine 4 mg/dL (Negative)
[2023-12-23 08:28] LABS: Add Urine Culture? No; Bacteria Urine TRACE /hpf; Calcium Oxalate Crystals Urine 15-25 /hpf; Mucus Urine 2+ /hpf; RBC Urine 0-4 /hpf (0-2); Squamous Epithelial Cell Urine 0-4 /hpf (0-5); WBC Urine 0-4 /hpf (0-5)
[2023-12-23 09:28] VITALS: BP 127/98; PULSE 94; O2SAT 94
[2023-12-23 10:15] VITALS: BP 127/98; PULSE 94; O2SAT 94
== END 2023-12-23 10:18 | disposition home or self-care (01) ==
PROVIDERS: Emergency Provider Family Medicine; PCP Family Medicine
DX: R59.1 Generalized enlarged lymph nodes (principal); I10 Essential (primary) hypertension
CPT/HCPCS: 74176; 80053; 81001; 83690; 84703; 85025; 96374; 99285; J2405; J7030

== ENCOUNTER 2024-01-21 15:30 | Oncology outpatient (recurring) (ONCR) | payer BC, SELFPAY ==
[2024-01-14 16:13] VITALS: BP 112/70; PULSE 85; RESP 17; TEMP 36.9; O2SAT 98
[2024-01-14] MEDS: ferric carboxy (IVPB) 750 MG in sodium chloride 0.9% (100 ml) 100 ML 345 MG IV (16:19)
[2024-01-14 16:51] VITALS: BP 132/76; PULSE 84; RESP 16; TEMP 36.3; O2SAT 96
[2024-01-21 15:28] VITALS: BP 124/75; PULSE 103; RESP 18; O2SAT 98
[2024-01-21] MEDS: ferric carboxy (IVPB) 750 MG in sodium chloride 0.9% (100 ml) 100 ML 345 MG IV (15:32)
[2024-01-21 15:55] VITALS: BP 100/70; PULSE 96; RESP 16; TEMP 36.4; O2SAT 96
== END 2024-02-07 23:59 | disposition home or self-care (01) ==
PROVIDERS: PCP Family Medicine; Visit Provider Internal Medicine Medical Oncology
DX: Z53.9 Procedure and treatment not carried out, unspecified reason; D64.9 Anemia, unspecified
CPT/HCPCS: 96365; J1439

== ENCOUNTER 2024-02-18 13:52 | Oncology outpatient (recurring) (ONCR) | payer BC, SELFPAY ==
[2024-02-18 14:32] LABS: Basophils # 0.1 10^3/uL (0.0-0.1); Basophils % 0.8 %; Eosinophils # 0.2 10^3/uL (0.0-0.8); Eosinophils % 2.6 %; Hematocrit 43.2 % (36-47); Lymphocytes # 2.4 10^3/uL (0.8-4.8); Lymphocytes % 27.8 %; Mean Corpuscular HGB Conc 32.9 g/dL (30-55); Mean Corpuscular Hemoglobin 28.3 pg (27-33); Mean Corpuscular Volume 86.2 fl (85-98); Mean Platelet Volume 10.2 fL (7.4-10.4); Monocytes # 0.6 10^3/uL (0.2-0.9); Monocytes % 6.6 %; Neutrophils # 5.21 10^3/uL (1.8-7.7); Neutrophils % 61.8 %; Nucleated Red Blood Cells % 0 %; Platelet Count 314 10^3/cmm (157-399); Red Blood Count 5.01 10^6/uL (3.85-5.65); Red Cell Distribution Width 17.4 % (12.1-15.1); White Blood Count 8.44 10^3/uL (3.29-11.43)
[2024-02-18 14:52] LABS: Alanine Aminotransferase 16 U/L (0-33); Albumin Level 4.6 g/dL (3.5-5.2); Alkaline Phosphatase 102 U/L (35-105); Anion Gap 15.3 (5-19); Aspartate Amino Transferase 12 U/L (0-32); Blood Urea Nitrogen 9 mg/dL (6-20); Calcium 10.7 mg/dL (8.5-10.5); Carbon Dioxide 24 mmol/L (22-29); Chloride 102 mmol/L (98-107); Ferritin 267 ng/mL (15-150); Globulin 2.8 g/dL (1.3-4.6); Glomerular Filtration Rate 92.2 mL/min (90-130); Glucose 89 mg/dL (65-115); Iron 64 ug/dL (37-145); Osmolality Calculated 282 mOsm/kg (285-295); Percent Saturation 28.1 % (20-50); Potassium 4.3 mmol/L (3.5-5.1); Sodium 137 mmol/L (136-145); Total Bilirubin 0.4 mg/dL (0.15-1.2); Total Iron Binding Capacity 227 mcg/dl; Total Protein 7.4 g/dL (6.6-8.7); Unsaturated Iron Binding 163 ug/dL (112-347)
== END 2024-03-09 23:59 | disposition home or self-care (01) ==
PROVIDERS: Nurse Practitioner Family; PCP Family Medicine; Visit Provider Internal Medicine Medical Oncology
DX: D64.9 Anemia, unspecified
CPT/HCPCS: 36415; 80053; 82728; 83540; 83550; 85025

== ENCOUNTER 2024-02-18 14:37 | Outpatient (CLI) | payer BC, SELFPAY ==
[2024-02-18 15:07] LABS: Chol HDL Ratio 5.47 mg/dL (0.0-4.40); Cholesterol 186 mg/dL (0-200); HDL Cholesterol 34 mg/dL (60-100); LDL Cholesterol Calculated 115 mg/dL (50-129); LDL HDL Ratio 3.38 RATIO (0.00-3.22); Triglycerides 186 mg/dL (0-150)
[2024-02-18 15:23] LABS: 25 Hydroxy Vitamin D 22 ng/mL (30-100)
[2024-02-18 15:23] LABS: Creatinine Urine, Random 111 mg/dL (28-217); Microalbum Creatinine Ratio Ur 9 mg/dL (0-20); Microalbumin Random Urine 1 ug/dL (0-20)
[2024-02-18 15:27] LABS: Estmated Average Glucose 97
== END 2024-02-18 14:38 | disposition home or self-care (01) ==
LOC: LAB 14:38
PROVIDERS: PCP Family Medicine; Visit Provider Internal Medicine
DX: E55.9 Vitamin D deficiency, unspecified (principal); E66.01 Morbid (severe) obesity due to excess calories; Z68.42 Body mass index [BMI] 45.0-49.9, adult; R63.5 Abnormal weight gain; D64.9 Anemia, unspecified
CPT/HCPCS: 80061; 82044; 82306; 83036

== ENCOUNTER → 2024-03-08 08:38 | Outpatient (BNVA) | payer BC, SELFPAY | PROVIDERS: PCP Family Medicine; Visit Provider Internal Medicine | DX: E55.9 Vitamin D deficiency, unspecified (principal); K59.09 Other constipation; E21.3 Hyperparathyroidism, unspecified | CPT/HCPCS: 82310; 83970 ==

== ENCOUNTER → 2024-04-27 15:22 | Outpatient (BNVA) | payer BC, SELFPAY | PROVIDERS: PCP Family Medicine; Visit Provider Nurse Practitioner Family | DX: Z01.89 Encounter for other specified special examinations (principal) | CPT/HCPCS: 87070; 87075; 87205 ==

== ENCOUNTER 2024-05-18 14:12 | Oncology outpatient (recurring) (ONCR) | payer BC, SELFPAY ==
[2024-05-18 14:48] LABS: Basophils # 0.1 10^3/uL (0.0-0.1); Basophils % 0.9 %; Eosinophils # 0.3 10^3/uL (0.0-0.8); Eosinophils % 4.1 %; Lymphocytes # 2.2 10^3/uL (0.8-4.8); Lymphocytes % 28.4 %; Mean Corpuscular HGB Conc 33.5 g/dL (30-55); Mean Corpuscular Hemoglobin 29.5 pg (27-33); Mean Corpuscular Volume 88.1 fl (85-98); Mean Platelet Volume 9.8 fL (7.4-10.4); Monocytes # 0.4 10^3/uL (0.2-0.9); Monocytes % 5.1 %; Neutrophils # 4.68 10^3/uL (1.8-7.7); Neutrophils % 61.2 %; Nucleated Red Blood Cells % 0 %; Platelet Count 345 10^3/cmm (157-399); Red Blood Count 4.88 10^6/uL (3.85-5.65); Red Cell Distribution Width 13.2 % (12.1-15.1); White Blood Count 7.64 10^3/uL (3.29-11.43)
[2024-05-18 15:06] LABS: Alanine Aminotransferase 17 U/L (0-33); Albumin Level 4.1 g/dL (3.5-5.2); Alkaline Phosphatase 105 U/L (35-105); Anion Gap 10.6 (5-19); Aspartate Amino Transferase 13 U/L (0-32); Blood Urea Nitrogen 9 mg/dL (6-20); Calcium 10.1 mg/dL (8.5-10.5); Carbon Dioxide 25 mmol/L (22-29); Chloride 100 mmol/L (98-107); Ferritin 72 ng/mL (15-150); Globulin 2.9 g/dL (1.3-4.6); Glomerular Filtration Rate 92.2 mL/min (90-130); Glucose 143 mg/dL (65-115); Iron 44 ug/dL (37-145); Osmolality Calculated 275 mOsm/kg (285-295); Percent Saturation 15.6 % (20-50); Potassium 3.6 mmol/L (3.5-5.1); Sodium 132 mmol/L (136-145); Total Bilirubin 0.3 mg/dL (0.15-1.2); Total Iron Binding Capacity 281 mcg/dl; Unsaturated Iron Binding 237 ug/dL (112-347)
== END 2024-06-09 23:59 | disposition home or self-care (01) ==
PROVIDERS: Nurse Practitioner Family; PCP Family Medicine; Visit Provider Internal Medicine Medical Oncology
DX: Z53.9 Procedure and treatment not carried out, unspecified reason; D64.9 Anemia, unspecified; E61.1 Iron deficiency
CPT/HCPCS: 36415; 80053; 82728; 83540; 83550; 85025

== ENCOUNTER 2024-06-29 15:14 | Oncology outpatient (recurring) (ONCR) | payer BC, SELFPAY ==
[2024-06-29 15:27] LABS: Basophils # 0.1 10^3/uL (0.0-0.1); Basophils % 0.8 %; Eosinophils # 0.2 10^3/uL (0.0-0.8); Eosinophils % 2.8 %; Lymphocytes # 2.5 10^3/uL (0.8-4.8); Lymphocytes % 29.1 %; Mean Corpuscular HGB Conc 33.7 g/dL (30-55); Mean Corpuscular Hemoglobin 29.5 pg (27-33); Mean Corpuscular Volume 87.6 fl (85-98); Mean Platelet Volume 9.6 fL (7.4-10.4); Monocytes # 0.6 10^3/uL (0.2-0.9); Monocytes % 6.9 %; Neutrophils # 5.08 10^3/uL (1.8-7.7); Nucleated Red Blood Cells % 0 %; Platelet Count 312 10^3/cmm (157-399); Red Blood Count 4.91 10^6/uL (3.85-5.65); Red Cell Distribution Width 13.4 % (12.1-15.1); White Blood Count 8.46 10^3/uL (3.29-11.43)
[2024-06-29 15:49] LABS: Iron 70 ug/dL (37-145); Percent Saturation 22.4 % (20-50); Total Iron Binding Capacity 312 mcg/dl; Unsaturated Iron Binding 242 ug/dL (112-347)
== END 2024-07-09 23:59 | disposition home or self-care (01) ==
LOC: ONCMED 15:14
PROVIDERS: Nurse Practitioner Family; PCP Family Medicine; Visit Provider Internal Medicine Medical Oncology
DX: E61.1 Iron deficiency
CPT/HCPCS: 36415; 83540; 83550; 85025

== ENCOUNTER 2024-07-06 15:16 | Outpatient (CLI) | payer BC, SELFPAY ==
--- NOTE | 2024-07-06 15:20 | XRR_ITS ---
PROCEDURE INFORMATION: Exam: XR Sacrum and Coccyx, 2 or More Views Exam date and time: 07/06/2024 3:24 PM Age: 43 years old Clinical indication: Pain in coccyx area; Patient HX: Chronic tailbone and bilateral hip pain, especially when rising from sitting, hip numbness; Additional info: Coccydynia TECHNIQUE: Imaging protocol: XR of the sacrum and coccyx, 2 or more views. COMPARISON: CT kidney stone [id number] 12/23/2023 8:42 AM FINDINGS: Bones/joints: Prominence of the bilateral acetabular roofs, more so on the right. No acute fracture or dislocation. No aggressive skeletal lesions. Soft tissues: Normal. XR/XR sacrum coccyx min 2V [id number] IMPRESSION: Prominence of the bilateral acetabular roofs, more so on the right. This can be seen with pincer type femoroacetabular morphology. COMMENTS: Consider MRI of the sacrum/coccyx if the patient continues with clinical symptoms.
== END 2024-07-06 15:17 | disposition home or self-care (01) ==
LOC: RAD 15:17
PROVIDERS: PCP Family Medicine; Visit Provider Family Medicine
DX: M24.852 Other specific joint derangements of left hip, not elsewhere classified (principal); M53.3 Sacrococcygeal disorders, not elsewhere classified
CPT/HCPCS: 72220

== ENCOUNTER 2024-07-29 09:12 | Outpatient (CLI) | payer BC, SELFPAY ==
--- NOTE | 2024-07-29 09:17 | MR_ITS ---
WS: [id number] MRI PELVIS WITHOUT CONTRAST. COMPARISON: CT 12/23/2023 Multiplanar, multisequence imaging is performed without contrast. Uterus is enlarged and heterogeneous. There is a central low signal mass on all sequences. Mass measu res 7.3 x 7.5 x 5.5 cm. On the transverse imaging the endometrium appears to be displaced to the LEFT of midline. Favor this is a fibroid which does abut the endometrium. No ascites or adenopathy. No adnexal mass. No marrow signal abnormality to suggest an acute fracture. Visualized lumbosacral spine is normal. No significant narrowing of the hip joints. No labral tear or joint effusion. No tendon tears. MR/MR pelvis wo con* [id number] IMPRESSION: 1. No pelvic fracture or marrow edema. 2. No hip joint effusion. 3. Uterine enlargement. 4. Large uterine mass measures 7.3 x 7.5 x 5.5 cm. This is most likely a fibro id with the endometrium and being displaced to the LEFT. Recommend follow-up tr ansvaginal pelvic ultrasound.
== END 2024-07-29 09:13 | disposition home or self-care (01) ==
LOC: RAD 09:13
PROVIDERS: PCP Family Medicine; Visit Provider Family Medicine
DX: D25.9 Leiomyoma of uterus, unspecified (principal); N85.2 Hypertrophy of uterus; R20.0 Anesthesia of skin; M25.551 Pain in right hip; M53.3 Sacrococcygeal disorders, not elsewhere classified
CPT/HCPCS: 72195

== ENCOUNTER 2024-08-09 08:35 | Outpatient (CLI) | payer BC, SELFPAY ==
--- NOTE | 2024-08-09 08:38 | USR_ITS ---
PROCEDURE INFORMATION: Exam: US Pelvis, Complete, Non-Obstetric Exam date and time: 08/09/2024 8:52 AM Age: 43 years old Clinical indication: Condition or disease; Uterine condition; Fibroids; Additional info: Uterine fibroids TECHNIQUE: Imaging protocol: Transabdominal pelvic nonobstetric ultrasound. Complete exam. Real time ultrasound with image documentation. COMPARISON: US pelv w/transvag [id number] 11/15/2019 3:27 PM FINDINGS: Uterus: There is a large uterine mass, presumably a fibroid. This measures approximately 6 cm in size.Endometrial stripe is normal. Right ovary/adnexa: Ovary is normal. No mass. Normal blood flow. Left ovary/adnexa: Ovary is normal. No mass. Normal blood flow. Intraperitoneal space: No intraperitoneal fluid. Urinary bladder: Normal. US/US pelv w/transvag [id number] IMPRESSION: Large uterine fibroid.
== END 2024-08-09 08:36 | disposition home or self-care (01) ==
LOC: RAD 08:35
PROVIDERS: PCP Family Medicine; Visit Provider Family Medicine
DX: D25.9 Leiomyoma of uterus, unspecified (principal)
CPT/HCPCS: 76830; 76856

== ENCOUNTER 2024-08-18 14:12 | Oncology outpatient (recurring) (ONCR) | payer BC, SELFPAY ==
[2024-08-18 14:37] LABS: Basophils # 0.1 10^3/uL (0.0-0.1); Basophils % 0.7 %; Eosinophils # 0.3 10^3/uL (0.0-0.8); Eosinophils % 3.3 %; Lymphocytes # 2.5 10^3/uL (0.8-4.8); Lymphocytes % 28.1 %; Mean Corpuscular HGB Conc 33.2 g/dL (30-55); Mean Corpuscular Hemoglobin 28.5 pg (27-33); Mean Corpuscular Volume 85.9 fl (85-98); Mean Platelet Volume 9.8 fL (7.4-10.4); Monocytes # 0.7 10^3/uL (0.2-0.9); Monocytes % 7.4 %; Neutrophils % 60.2 %; Nucleated Red Blood Cells % 0 %; Platelet Count 336 10^3/cmm (157-399); Red Blood Count 5.12 10^6/uL (3.85-5.65); Red Cell Distribution Width 13.7 % (12.1-15.1)
[2024-08-18 14:53] LABS: Alanine Aminotransferase 19 U/L (0-33); Albumin Level 4.5 g/dL (3.5-5.2); Alkaline Phosphatase 97 U/L (35-105); Anion Gap 15.8 (5-19); Aspartate Amino Transferase 16 U/L (0-32); Blood Urea Nitrogen 10 mg/dL (6-20); Calcium 10.7 mg/dL (8.5-10.5); Carbon Dioxide 22 mmol/L (22-29); Chloride 104 mmol/L (98-107); Ferritin 42 ng/mL (15-150); Globulin 2.9 g/dL (1.3-4.6); Glomerular Filtration Rate 110.2 mL/min (90-130); Glucose 82 mg/dL (65-115); Iron 55 ug/dL (37-145); Osmolality Calculated 282 mOsm/kg (285-295); Percent Saturation 15.8 % (20-50); Potassium 4.8 mmol/L (3.5-5.1); Sodium 137 mmol/L (136-145); Total Bilirubin 0.4 mg/dL (0.15-1.2); Total Iron Binding Capacity 346 mcg/dl; Total Protein 7.4 g/dL (6.6-8.7); Unsaturated Iron Binding 291 ug/dL (112-347)
[2024-08-18 17:17] LABS: Bilirubin Urine Negative (Negative); Blood Urine Negative (Negative); Glucose Urine UA Negative (Normal); Ketones Urine Trace (Negative); Leukocyte Esterase Urine Negative (Negative); Nitrate Urine Negative (Negative); Protein Urine Negative (Negative); Specific Gravity, Urine 1.018 (1.005-1.030); Urine Appearance Clear (CLEAR); Urine Color Yellow (Yellow); pH Urine 5.5 (5-7)
[2024-08-18 17:23] LABS: Add Urine Microscopic? YES; Bacteria Urine Trace /hpf; Squamous Epithelial Cell Urine 0-5 /hpf (0-5)
== END 2024-09-09 23:59 | disposition home or self-care (01) ==
PROVIDERS: Nurse Practitioner Family; PCP Family Medicine; Visit Provider Internal Medicine Medical Oncology
DX: E61.1 Iron deficiency (principal); R30.0 Dysuria
CPT/HCPCS: 36415; 80053; 81001; 82728; 83540; 83550; 85025

== ENCOUNTER 2024-09-07 16:01 | Outpatient (CLI) | payer BC, SELFPAY ==
[2024-09-07 16:42] LABS: Estmated Average Glucose 114; Hemoglobin A1C 5.6 % (4.0-6.0)
[2024-09-07 17:33] LABS: Anion Gap 15.1 (5-19); Blood Urea Nitrogen 8 mg/dL (6-20); Calcium 10.6 mg/dL (8.5-10.5); Carbon Dioxide 25 mmol/L (22-29); Chloride 101 mmol/L (98-107); Glomerular Filtration Rate 92.2 mL/min (90-130); Glucose 92 mg/dL (65-115); Osmolality Calculated 282 mOsm/kg (285-295); Potassium 4.1 mmol/L (3.5-5.1); Sodium 137 mmol/L (136-145)
[2024-09-07 17:34] LABS: Calcium 10.8 mg/dL (8.5-10.5)
[2024-09-07 17:35] LABS: 25 Hydroxy Vitamin D 33 ng/mL (30-100)
[2024-09-07 17:40] LABS: Parathyroid Hormone 91.2 pg/mL (15-65)
== END 2024-09-07 16:02 | disposition home or self-care (01) ==
LOC: LAB 16:02
PROVIDERS: PCP Family Medicine; Visit Provider Internal Medicine
DX: E55.9 Vitamin D deficiency, unspecified (principal); E66.01 Morbid (severe) obesity due to excess calories; Z68.41 Body mass index [BMI] 40.0-44.9, adult
CPT/HCPCS: 36415; 80048; 82306; 82310; 83036; 83970

== ENCOUNTER 2024-09-28 07:38 | Outpatient (CLI) | payer BC, SELFPAY ==
--- NOTE | 2024-09-28 08:00 | NM_ITS ---
WS: [id number] NUCLEAR MEDICINE PARATHYROID SCAN HISTORY: hyperparathyroidism COMPARISON: None available. Patient is injected with 20.1 mCi technetium 99m Sestamibi. Static imaging of the anterior neck and upper thorax submitted at injection time and 1.5 hours postinjection. Sternal notch marker and chin markers are placed. Normal activity and uptake in the thyroid gland bilaterally on the early imaging. On the delayed imaging, activity from the thyroid gland has nearly washed out. There is a persistent area of increased uptake along the inferior RIGHT neck at the level of the inferior lobe of the thyroid. NM/NM parathyroid [id number] IMPRESSION: Highly suspicious for parathyroid adenoma posterior to lower pole RIGHT thyroid .
== END 2024-09-28 07:39 | disposition home or self-care (01) ==
LOC: RAD 07:39
PROVIDERS: PCP Family Medicine; Visit Provider Internal Medicine
DX: E21.3 Hyperparathyroidism, unspecified (principal); R93.89 Abnormal findings on diagnostic imaging of other specified body structures
CPT/HCPCS: 78070; A9500

== ENCOUNTER 2024-09-29 14:23 | Oncology outpatient (recurring) (ONCR) | payer BC, SELFPAY ==
[2024-09-29 14:48] LABS: Basophils # 0.1 10^3/uL (0.0-0.1); Basophils % 0.8 %; Eosinophils # 0.3 10^3/uL (0.0-0.8); Hematocrit 38.6 % (36-47); Lymphocytes # 2.3 10^3/uL (0.8-4.8); Lymphocytes % 29.8 %; Mean Corpuscular HGB Conc 33.2 g/dL (30-55); Mean Corpuscular Hemoglobin 28.4 pg (27-33); Mean Corpuscular Volume 85.6 fl (85-98); Mean Platelet Volume 9.7 fL (7.4-10.4); Monocytes # 0.6 10^3/uL (0.2-0.9); Monocytes % 7.3 %; Neutrophils # 4.53 10^3/uL (1.8-7.7); Neutrophils % 57.8 %; Nucleated Red Blood Cells % 0 %; Platelet Count 324 10^3/cmm (157-399); Red Blood Count 4.51 10^6/uL (3.85-5.65); Red Cell Distribution Width 13.8 % (12.1-15.1); White Blood Count 7.82 10^3/uL (3.29-11.43)
[2024-09-29 15:07] LABS: Alanine Aminotransferase 18 U/L (0-33); Albumin Level 4.1 g/dL (3.5-5.2); Alkaline Phosphatase 89 U/L (35-105); Aspartate Amino Transferase 13 U/L (0-32); Blood Urea Nitrogen 12 mg/dL (6-20); Calcium 9.9 mg/dL (8.5-10.5); Carbon Dioxide 28 mmol/L (22-29); Chloride 107 mmol/L (98-107); Ferritin 16 ng/mL (15-150); Globulin 2.6 g/dL (1.3-4.6); Glomerular Filtration Rate 92.2 mL/min (90-130); Glucose 90 mg/dL (65-115); Iron 45 ug/dL (37-145); Osmolality Calculated 293 mOsm/kg (285-295); Percent Saturation 14.3 % (20-50); Sodium 142 mmol/L (136-145); Total Bilirubin 0.2 mg/dL (0.15-1.2); Total Iron Binding Capacity 313 mcg/dl; Total Protein 6.7 g/dL (6.6-8.7); Unsaturated Iron Binding 268 ug/dL (112-347)
== END 2024-10-07 23:59 | disposition home or self-care (01) ==
LOC: ONCMED 14:24
PROVIDERS: Nurse Practitioner Family; PCP Family Medicine; Visit Provider Internal Medicine
DX: N94.6 Dysmenorrhea, unspecified (principal)
CPT/HCPCS: 36415; 80053; 82728; 83540; 83550; 85025

== ENCOUNTER 2024-11-17 14:18 | Oncology outpatient (recurring) (ONCR) | payer BC, SELFPAY ==
[2024-11-17 14:52] LABS: Basophils # 0.1 10^3/uL (0.0-0.1); Basophils % 0.7 %; Eosinophils # 0.3 10^3/uL (0.0-0.8); Eosinophils % 3.7 %; Hematocrit 39.8 % (36-47); Lymphocytes # 2.3 10^3/uL (0.8-4.8); Lymphocytes % 27.8 %; Mean Corpuscular HGB Conc 32.7 g/dL (30-55); Mean Corpuscular Volume 85.8 fl (85-98); Mean Platelet Volume 9.9 fL (7.4-10.4); Monocytes # 0.6 10^3/uL (0.2-0.9); Monocytes % 7.8 %; Neutrophils # 4.83 10^3/uL (1.8-7.7); Neutrophils % 59.6 %; Nucleated Red Blood Cells % 0 %; Platelet Count 340 10^3/cmm (157-399); Red Blood Count 4.64 10^6/uL (3.85-5.65); Red Cell Distribution Width 14.5 % (12.1-15.1)
[2024-11-17 15:18] LABS: Alanine Aminotransferase 16 U/L (0-33); Albumin Level 4.2 g/dL (3.5-5.2); Alkaline Phosphatase 87 U/L (35-105); Aspartate Amino Transferase 13 U/L (0-32); Blood Urea Nitrogen 9 mg/dL (6-20); Calcium 10.2 mg/dL (8.5-10.5); Carbon Dioxide 23 mmol/L (22-29); Chloride 105 mmol/L (98-107); Ferritin 20 ng/mL (15-150); Globulin 2.8 g/dL (1.3-4.6); Glomerular Filtration Rate 110.2 mL/min (90-130); Glucose 96 mg/dL (65-115); Iron 53 ug/dL (37-145); Osmolality Calculated 285 mOsm/kg (285-295); Percent Saturation 14.8 % (20-50); Sodium 138 mmol/L (136-145); Total Bilirubin 0.4 mg/dL (0.15-1.2); Total Iron Binding Capacity 358 mcg/dl; Unsaturated Iron Binding 305 ug/dL (112-347)
== END 2024-12-07 23:59 | disposition home or self-care (01) ==
LOC: ONCMED 14:18
PROVIDERS: Nurse Practitioner Family; PCP Family Medicine; Visit Provider Internal Medicine
DX: N94.6 Dysmenorrhea, unspecified (principal)
CPT/HCPCS: 36415; 80053; 82728; 83540; 83550; 85025

== ENCOUNTER 2025-01-03 13:00 | Oncology outpatient (recurring) (ONCR) | payer BC, SELFPAY ==
[2024-12-26] MEDS: ferric carboxy (PYXIS) 750 MG in sodium chloride 0.9% (100 ml) 100 ML 75 MG IV (14:40)
[2025-01-03] MEDS: ferric carboxy (PYXIS) 750 MG in sodium chloride 0.9% (100 ml) 100 ML 75 MG IV (14:46)
[2025-01-03 16:42] VITALS: BP 132/74; PULSE 84; RESP 16; O2SAT 97
== END 2025-01-07 23:59 | disposition home or self-care (01) ==
PROVIDERS: PCP Family Medicine; Visit Provider Internal Medicine
DX: Z53.9 Procedure and treatment not carried out, unspecified reason; N94.6 Dysmenorrhea, unspecified; Z79.899 Other long term (current) drug therapy
CPT/HCPCS: 96365; J1439

== ENCOUNTER 2025-01-23 08:00 | Outpatient (CLI) | payer BC, SELFPAY ==
[2025-01-23 09:15] LABS: Alanine Aminotransferase 20 U/L (0-33); Alkaline Phosphatase 79 U/L (35-105); Anion Gap 16.1 (5-19); Aspartate Amino Transferase 21 U/L (0-32); Blood Urea Nitrogen 8 mg/dL (6-20); Calcium 8.9 mg/dL (8.5-10.5); Carbon Dioxide 22 mmol/L (22-29); Chloride 106 mmol/L (98-107); Globulin 2.5 g/dL (1.3-4.6); Glomerular Filtration Rate 135.3 mL/min (90-130); Glucose 94 mg/dL (65-115); Iron 54 ug/dL (37-145); Osmolality Calculated 288 mOsm/kg (285-295); Potassium 4.1 mmol/L (3.5-5.1); Sodium 140 mmol/L (136-145); Total Bilirubin 0.2 mg/dL (0.15-1.2); Total Protein 6.5 g/dL (6.6-8.7)
[2025-01-23 09:21] LABS: Parathyroid Hormone 43.5 pg/mL (15-65)
== END 2025-01-23 08:01 | disposition home or self-care (01) ==
PROVIDERS: PCP Family Medicine; Visit Provider Internal Medicine
DX: E21.0 Primary hyperparathyroidism (principal); N94.6 Dysmenorrhea, unspecified; E61.1 Iron deficiency; D64.9 Anemia, unspecified; E55.9 Vitamin D deficiency, unspecified; E66.01 Morbid (severe) obesity due to excess calories; Z68.41 Body mass index [BMI] 40.0-44.9, adult
CPT/HCPCS: 36415; 80053; 82310; 83540; 83970